=== PATIENT | female | born 1940 | race African-American/Black ===

== ENCOUNTER 2016-09-14 08:33 | Inpatient (IN) | payer OTHER ==
[~2016-09-14] VITALS: Ht 177.8 cm; Wt 73.5 kg
[~2016-09-14 08:33] MED LIST: CLONAZEPAM0.5 M2 PO; GABAPENTIN300 M2 PO; LOVENOX; OXCARBAZEPINE300 M1 PO; OXYCODONE-ACET1 EACH PO
--- NOTE | 2016-09-14 12:41 | Cons- Cardiology ---
General Information and HPI Consulting Request Date of Consult: 09/14/16 Requested By: ISMAEL DOW MD Reason for Consult: Bradycardia History of Present Illness: The patient is a 76-year-old female with history of trigeminal neuralgia, brain meningioma, and recently diagnosed right upper lobe lung mass. She presented for bronchoscopy and lymph node biopsy. While being prepared for surgery, she was noted to be in a junctional rate of cardiac. Review of records from [facility] shows that she has been diagnosed multiple times in the past with junctional bradycardia and sinus bradycardia. This was found in the past to be asymptomatic, and pacemaker was not indicated. She denies any symptoms attributable to bradycardia. The surgery was postponed because of the junctional bradycardia and she was admitted for further evaluation. She does not follow up with her top dyeing machine tender, and she denies any other significant cardiac history. No chest pain. No syncope. No shortness of breath. No palpitations. No diaphoresis. No nausea or vomiting. Allergies/Medications Allergies: Coded Allergies: acetaminophen (From DARVOCET-N) (Intermediate, DIZZINESS, NAUSEA 09/14/16) propoxyphene (From DARVOCET-N) (Intermediate, DIZZINESS, NAUSEA 09/14/16) Home Med List: Clonazepam 0.5 MG TABLET 1 TAB PO TIDPRN ANXIETY (Reported) Gabapentin 300 MG CAPSULE 1 CAP PO TID NERVE PAIN (Reported) Oxcarbazepine 300 MG TABLET 2 TAB PO BID NERVE PAIN (Reported) Oxycodone HCl/Acetaminophen (Oxycodone-Acetaminophen 5-325) 5 MG-325 MG TABLET 1 TAB PO 4XDP PAIN (Reported) Current Medications: Current Medications Sig/Frances Start time Last Medication Dose Route Stop Time Status Admin Acetaminophen 650 MG Q6P PRN 09/14 1300 DC PO Acetaminophen 1,000 MG .STK-MED ONE 09/14 930 DC IV 09/15 931 Clonazepam 0.5 MG TID 09/14 1600 AC 09/14 PO 09/21 1559 1637 Enoxaparin Sodium 40 MG DAILY 09/15 1000 AC SC Fentanyl Citrate 200 MCG .STK-MED ONE 09/14 930 DC IM 09/15 931 Gabapentin 300 MG TID 09/14 1600 AC 09/14 PO 1453 Midazolam HCl 2 MG .STK-MED ONE 09/14 930 DC IM 05/01 0932 Oxcarbazepine 600 MG BID 09/14 1255 AC 09/14 PO 1451 Oxycodone HCl 10 MG Q6P PRN 09/14 1300 DC PO Oxycodone/ 1 TAB Q6P PRN 09/14 1300 DC Acetaminophen PO Review of Systems Review of Systems: No rash. No tremor. No fever. No chills. All other systems were reviewed, and were noted to be negative. Past History Surgical History Surgical History: none Family History Family History Reviewed? Family history was reviewed with the patient, and there are no components family history relevant to the current admission. Exam & Diagnostic Data Vital Signs and I&O Vital Signs Date Time Temp Pulse Resp B/P B/P Pulse O2 O2 Flow FiO2 Mean Ox Delivery Rate 09/14 1657 97.2 50 20 112/78 95 Room Air Intake & Output 09/14 1600 09/14 0809/14 0000 09/13 1600 09/13 0800 09/13 0000 Intake Total Output Total Balance Patient 162 lb Weight Weight Chair scale Measurement Method Physical Exam: Gen: The patient is in no acute distress HEENT: Normal nose, ears, and oropharynx. Pupils equal bilaterally. Conjunctiva normal. Neck: Supple with no JVD, no masses, and no thyromegaly Lungs: Clear to auscultation with normal respiratory effort Heart: RRR, S1, S2, no murmurs. No peripheral edema, 2+ pulses in the lower extremities bilaterally Abdomen: Soft, nontender, no masses. No hepatomegaly. No splenomegaly Extremities: No clubbing or cyanosis. Normal muscle strength in the upper and lower extremities Skin: Normal skin turgor with no skin ulcers or lesions noted. Neuro: Cranial nerves intact. Sensation intact Psych: Alert and oriented 3 with appropriate affect Labs/Km Results: Laboratory Tests 09/14 09/14 1500 1500 Chemistry Hemoglobin A1c (4.2 - 5.8 %) Pending Troponin I (< 0.11 ng/ml) < 0.01 TSH (0.270 - 4.200 uIU/mL) 10.400 H Free T4 (0.78 - 2.44 ng/dL) 0.53 L Coagulation PT (9.4 - 12.5 SEC) 12.3 INR (0.90 - 1.19) 1.17 APTT (25 - 37 SEC) 41 H Hematology CBC w Diff NO MAN DIFF REQ WBC (4.8 - 10.8 /CUMM) 3.4 L RBC (4.20 - 5.40 /CUMM) 3.99 L Hgb (12.0 - 16.0 G/DL) 11.7 L Hct (37 - 47 %) 34.8 L MCV (81.0 - 99.0 FL) 87.1 MCH (27.0 - 31.0 PG) 29.2 RDW (11.5 - 14.5 %) 14.3 Plt Count (130 - 400 /CUMM) 314 MPV (7.4 - 10.4 FL) 9.1 Gran % (42.2 - 75.2 %) 52.4 Lymphocytes % (20.5 - 51.1 %) 31.0 Monocytes % (1.7 - 9.3 %) 13.0 H Eosinophils % (0 - 5 %) 2.9 Basophils % (0.0 - 2.0 %) 0.7 Absolute Granulocytes (1.4 - 6.5 /CUMM) 1.8 Absolute Lymphocytes (1.2 - 3.4 /CUMM) 1.1 L Absolute Monocytes (0.10 - 0.60 /CUMM) 0.4 Absolute Eosinophils (0.0 - 0.7 /CUMM) 0.1 Absolute Basophils (0.0 - 0.2 /CUMM) 0 PUBS MCHC (33.0 - 37.0 G/DL) 33.5 Diagnostic Data EKG Results EKG tracing is independently reviewed, and reveals junctional escape rhythm at a rate of [address] scan of the chest: Assessment/Plan Assessment/Plan Assessment: 1. Junctional bradycardia, with heart rate in the 40s. No definite symptoms 2. Lung mass, plan for biopsy Plan: * Monitor on telemetry * Echocardiogram * Given the significant junctional bradycardia, the patient may require permanent pacemaker placement prior to her thoracic surgery. * Nothing by mouth after midnight for possible pacemaker placement Consult Acknowledgment - Thank you for your consult request.
--- NOTE | 2016-09-14 12:57 | History & Physical ---
ALLIE NESBITT 09/14/16 1256: General Information and HPI MD Statement: I have seen and personally examined SIMI MACIAS and documented this H&P. The patient is a 76 year old F who presented with a patient stated chief complaint of nonspecific EKG changes during preop for bronchoscopy []. Source of Information: patient, family Exam Limitations: no limitations History of Present Illness: Patient is 76-year-old -[place] female with past medical history significant for trigeminal neuralgia, brain meningioma status post gamma knife at [facility] and newly diagnosed right upper lobe lung mass in June 2016, biopsy is significant for adenocarcinoma seen by cardiothoracic surgeon Dr. Harrison came today for bronchoscopy/lymph node biopsy and on the operating table workup was found to have nonspecific EKG changes and needs formal preop clearance from pressurised container filler. Patient denied any chest pain, shortness of breath , hemoptysis, edema, and is a history of cardiac issues in the past. She admits for having cough which is mildly productive but no hemoptysis. She denied any fever, chills but admits for having weakness and lethargy. She admits for having 40 pounds weight loss in the last 6 months. Patient lives at home with her daughter who is 24 hours caregiver and power of appliance installer. She is usually under sedative effects of her high dose of medications for trigeminal neuralgia and uses walker for ambulation at home. Allergies/Medications Allergies: Coded Allergies: acetaminophen (From DARVOCET-N) (Intermediate, DIZZINESS, NAUSEA 09/14/16) propoxyphene (From DARVOCET-N) (Intermediate, DIZZINESS, NAUSEA 09/14/16) Home Med list Clonazepam 0.5 MG TABLET 1 TAB PO TIDPRN ANXIETY (Reported) Gabapentin 300 MG CAPSULE 1 CAP PO TID NERVE PAIN (Reported) Oxcarbazepine 300 MG TABLET 2 TAB PO BID NERVE PAIN (Reported) Oxycodone HCl/Acetaminophen (Oxycodone-Acetaminophen 5-325) 5 MG-325 MG TABLET 1 TAB PO 4XDP PAIN (Reported) Past History Medical History Neurological: trigeminal neuralgia EENT: NONE Cardiovascular: NONE Respiratory: adenocarcinoma of lung Gastrointestinal: NONE Hepatic: NONE Renal: NONE Musculoskeletal: NONE Psychiatric: NONE Surgical History Surgical History: appendectomy Past Family/Social History Family History Relations & Conditions if any BROTHER (LUNG CANCER). Psychosocial History Where do you live? Home Who Do You Live With? child Services at Home: None Primary Language: Italian Smoking Status: Former Smoker ETOH Use: denies use Functional Ability ADLs Needs Assist: dressing, eating, toileting, bathing. Ambulation: walker IADLs Needs Assist: shopping, housework, finances, food prep, telephone, transportation, medication admin. Review of Systems Review of Systems Constitutional: Denies: chills, diaphoresis. EENTM: Denies: blurred vision, double vision. Cardiovascular: Denies: chest pain, edema. Respiratory: Reports: cough. Denies: hemoptysis. GI: Denies: bloating, constipation. Genitourinary: Denies: dysuria, frequency. Musculoskeletal: Reports: see HPI. Skin: Reports: see HPI. Neurological/Psychological: Denies: anxiety, ataxia. Hematologic/Endocrine: Reports: see HPI. Exam & Diagnostic Data Last 24 Hrs of Vital Signs/I&O Vital Signs Date Time Temp Pulse Resp B/P B/P Pulse O2 O2 Flow FiO2 Mean Ox Delivery Rate 09/15 0800 97.8 60 24 100/50 95 Room Air 05/ 0000 95 Room Air / 0000 96.5 45 18 102/60 95 Room Air / 1657 97.2 50 20 112/78 95 Room Air Intake & Output 09/15 1600 09/15 0800 09/15 0000 Intake Total Output Total Balance Number 0 Bowel Movements Physical Exam General Appearance Alert, Oriented X3, Cooperative, No Acute Distress Skin No Breakdown Neck Supple Cardiovascular Regular Rate, Normal S1, Normal S2 Lungs Normal Air Movement, basal crackles Abdomen Normal Bowel Sounds, Soft Neurological Normal Speech, Strength at 5/5 X4 Ext, Normal Tone Extremities No Clubbing, No Cyanosis, No Edema Diagnostic Data EKG Results Sinus bradycardia with no ST-T wave changes Assessment/Plan Assessment: Patient is 76-year-old -[place] female with past medical history significant for trigeminal neuralgia, brain meningioma status post gamma knife at [facility] and newly diagnosed right upper lobe lung mass in June 2016, biopsy is significant for adenocarcinoma seen by cardiothoracic surgeon Dr. Harrison came today for bronchoscopy/lymph node biopsy and on the operating table workup was found to have nonspecific EKG changes and needs formal preop clearance from pressurised container filler. Admit patient on telemetry floor and was taken for following problems Problem #1 nonspecific T-wave changes on preop evaluation/junctional bradycardia and patient might need permanent pacemaker placement * Patient is currently free of any symptoms. We will do initial labs including CBC, BMP, lipid profile, thyroid functions, hemoglobin A1c, troponins and EKG. If initial set of troponin is elevated we will trend it. * Patient will be seen by Dr. Finley and will follow his recommendations and patient might need pacemaker placement prior to her surgery Problem #2 right upper lobe lung mass with significant for adenocarcinoma of lung * Patient is seen by Dr. Harrison. Problem #3 history of severe trigeminal neuralgia * Patient is on 300 mg 3 times a day gabapentin, 0.5 mg 3 times a day clonazepam and also ox carbamazepine. We will continue her home medications. Heart healthy diet Lovenox for DVT prophylaxis Patient is DNI DNR As Ranked By This Provider Problem List: 1. EKG abnormality 2. Lung cancer Core Measures/Miscellaneous Acute Coronary Syndrome ACS Diagnosis: No Cerebrovascular Accident CVA/TIA Diagnosis: No Congestive Heart Failure CHF Diagnosis: No Venous Thromboembolism VTE Risk Factors: Age > 40 [facility] prophylaxis d/t: No contraindications No VTE Pharm Prophylaxis d/t: No contraindications VTE Diagnosis: No VTE Type: NONE VTE Confirmed by (Test): NONE Severe Sepsis Severe Sepsis Present: No Septic Shock Septic Shock Present: No Miscellaneous Documentation Attending Case Discussed With: ISMAEL DOW MD Primary Care Physician: RAYRAY CHAWLA MD Patient sees these Specialists ONCOLOGIST Level of Patient Care: Telemetry Resident Review Statement Resident Statement: examined this patient ISMAEL DOW MD 09/14/16 1606: Attending MD Review Statement Attending Statement Attending MD Statement: examined this patient, discuss w/resident/PA/TRADE RECRUITER, agreed w/resident/PA/TRADE RECRUITER, reviewed EMR data (avail), discussed with nursing, amended to note Attending Assessment/Plan: 76 y/o F with pmh sig for trigeminal neuralgia, brain meningioma status post gamma knife at [facility] and newly diagnosed right upper lobe lung mass in June 2016, biopsy is significant for adenocarcinoma seen by cardiothoracic surgeon Dr. Harrison came today for bronchoscopy/lymph node biopsy. Found to have abnormal EKG with bradycardia and possible junctional rhythm. Medicine was called for admission to telemetry secondary to abnormal EKG. Patient denies any chest pain, shortness of breath, dizziness. She has been started on gabapentin as well as oxcarbazepine for history of trigeminal neuralgia. Patient claims that since she has been started on the medications she is sometimes feel fatigued, cardiac is wobbly and she is concerned that her lower heart rate 90 related to these medications as they seem to be a new problem. She claimed that she was started on these medications will likely about 6 months ago. Vss currently stable, with HR in 60s. On exam; aox3, nad. cv; s1,s2, rrr, bradycardia. resp; clear abd; soft, nt, bs+ ext; no edema. Labs; pending A/P; 76 y/o F with pmh sig for trigeminal neuralgia, brain meningioma status post gamma knife at [facility] and newly diagnosed right upper lobe lung mass which was adenocarcinoma initially came into same day surgery for bronchoscopy for lymph node biopsy but then now admitted to telemetry secondary to having abnormal EKG. Patient's basic blood work will be checked for any electrolyte abnormalities. Echocardiogram will be checked. Patient had been seen by Dr. Abel, Will follow recommendations. Check thyroid function tests. Troponin will be checked. It is a possibility that her bradycardia is related to her oxcarbazepine. This needs to be discussed with her pressurised container filler as well as primary care doctor to see if we do make any changes in her medications. Will monitor on telemetry. DVT prophylaxis: Lovenox, hold in the morning in case if she needs a pacemaker. Keep patient nothing by mouth after midnight tonight. Code: DNR/I
--- NOTE | 2016-09-14 15:59 | NUR ---
PT ADMITTED FROM SAME DAY SURGERY. SHE IS AWAKE AND COOPERATIVE, HER DAUGHTER WAS PRESENT. SHE DENIES PAIN OR DIZZINESS, MONITOR SHOWING SB 40-58. SHE WAS AMBULATED TO WITH ASSIST OF ONE AND VOIDED. HER CMR WAS CLARIFIED . SHE REPORTS THAT ALTHOUGH HER TRIGEMINAL NEUROLIGA MEDS MAKE HER SLEEPY AND DIFFICULT TO WALK, SHE HAS SEVERE PAIN WHICH NOW INCLUDES HAND PAIN IF SHE DOES NOT TAKE THE MEDS.
--- NOTE | 2016-09-14 16:43 | Cons- Thoracic Surgery ---
General Information and HPI Consulting Request Date of Consult: 09/14/16 Requested By: ISMAEL DOW MD Reason for Consult: Evaluation of her bradycardia and right upper lobe lung cancer Source of Information: patient, family, old records, PCP Exam Limitations: no limitations History of Present Illness: I admitted Mrs. Gregg to the operating room today to undergo a bronchoscopy and mediastinoscopy for continued workup of her known right upper lobe lung cancer. Anesthesia evaluation noted her EKG to show her to be in a junctional rhythm. 2 months ago she was admitted to [facility] and had the same findings on her electric cardiogram. There evaluation at that time felt that because she was asymptomatic no further workup or evaluation was necessary. The patient was scheduled for general anesthesia today and because of that cardiology consultation has been obtained in the preoperative holding area. The decision is to admit the patient for observation and possible pacemaker placement given that we are headed down the pathway of a possible right upper lobectomy. Allergies/Medications Allergies: Coded Allergies: acetaminophen (From DARVOCET-N) (Intermediate, DIZZINESS, NAUSEA 09/14/16) propoxyphene (From DARVOCET-N) (Intermediate, DIZZINESS, NAUSEA 09/14/16) Home Med List: Clonazepam 0.5 MG TABLET 1 TAB PO TIDPRN ANXIETY (Reported) Gabapentin 300 MG CAPSULE 1 CAP PO TID NERVE PAIN (Reported) Oxcarbazepine 300 MG TABLET 2 TAB PO BID NERVE PAIN (Reported) Oxycodone HCl/Acetaminophen (Oxycodone-Acetaminophen 5-325) 5 MG-325 MG TABLET 1 TAB PO 4XDP PAIN (Reported) Current Medications: Current Medications Sig/Frances Start time Last Medication Dose Route Stop Time Status Admin Acetaminophen 650 MG Q6P PRN 09/14 1300 DC PO Clonazepam 0.5 MG TID 09/14 1600 AC 09/14 PO 08 1559 1637 Enoxaparin Sodium 40 MG DAILY 09/15 1000 AC SC Gabapentin 300 MG TID 09/14 1600 AC 09/14 PO 1453 Oxcarbazepine 600 MG BID 09/14 1255 AC 09/14 PO 1451 Oxycodone HCl 10 MG Q6P PRN 09/14 1300 DC PO Oxycodone/ 1 TAB Q6P PRN 09/14 1300 DC Acetaminophen PO Past History Medical History Blood Transfusion Hx: No Neurological: trigeminal neuralgia EENT: NONE Cardiovascular: NONE Respiratory: adenocarcinoma of lung Gastrointestinal: NONE Hepatic: NONE Renal: NONE Musculoskeletal: NONE Psychiatric: NONE Endocrine: NONE Blood Disorders: NONE Cancer(s): CEREBRAL MASS 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 Psychosocial History Where Do You Live? Home Who Do You Live With? child Services at Home: None Primary Language: Kyrgyz Smoking Status: Former Smoker ETOH Use: denies use Functional Ability ADLs Needs Assist: dressing, eating, toileting, bathing. Ambulation: walker IADLs Needs Assist: shopping, housework, finances, food prep, telephone, transportation, medication admin. Review of Systems Review of Systems: She is essentially unremarkable from a cardiac standpoint. She has had no chest pain no syncope or presyncope. She does have neurologic symptoms which may be related to her known meningioma. She's had no cough and no weight and no weight loss. The rest of her 12 point review of systems is unremarkable. Exam & Diagnostic Data Vital Signs and I&O Intake & Output 09/14 1600 09/14 0800 09/14 0000 09/13 1600 09/13 0800 09/13 0000 Intake Total Output Total Balance Patient 162 lb Weight Weight Chair scale Measurement Method Physical Exam: Physical examination she is comfortable and appears well. Her skin is warm and well perfused no suspicious lesions noted. The sclerae are anicteric and mucous membranes are moist. There is no cervical or subclavicular lymphadenopathy. Her abdomen is soft and nontender with no masses. Her breath sounds are clear bilaterally. The cardiac exam shows a regular rhythm and rate with no murmurs or sounds. The periphery shows no cyanosis clubbing or edema. Her neurologic exam is grossly normal motor and sensory function. Assessment/Plan Assessment/Plan Clearly based upon the anesthesia evaluation we cannot proceed with a general anesthesia and the elective bronchoscopy me and mediastinoscopy. She is being admitted to a telemetry floor and I will leave it up to cardiology as to an indication if the patient has 1 for a dual-chamber pacemaker. We can do that as part of this hospitalization. I would not do both procedures but I would prefer that the pacemaker be placed and then the patient return at some later date for her bronchoscopy and mediastinoscopy. She has a known right upper lobe adenocarcinoma we are staging her with plans for eventual surgical resection. Cardiology evaluation with a final recommendation is pending and we will act accordingly. Copies To: CAMMY CRUZ,RAYRAY; MIKAEL CRUZ,KAIDEN Consult Acknowledgment - Thank you for your consult request.
--- NOTE | 2016-09-14 16:46 | NUR ---
PT MONITOR JUNCTIONAL RHYTYM 40-50. SHE IS SLEEPING, WAKES EASILY. TRANSCUTANEOUS PACER PLACED ON PT.
[2016-09-14 16:57] VITALS: BP 112/78
[2016-09-14 17:42] LABS: ABSOLUTE BASOPHIL COUNT 0 /CUMM (0.0-0.2); ABSOLUTE EOSINOPHIL COUNT 0.1 /CUMM (0.0-0.7); ABSOLUTE GRANULOCYTE CT 1.8 /CUMM (1.4-6.5); ABSOLUTE LYMPH COUNT 1.1 /CUMM (1.2-3.4); ABSOLUTE MONOCYTE COUNT 0.4 /CUMM (0.10-0.60); BASOPHIL % 0.7 % (0.0-2.0); EOSINOPHIL % 2.9 % (0-5); GRANULOCYTE % 52.4 % (42.2-75.2); HEMATOCRIT 34.8 % (37-47); MEAN CORPUSCULAR HGB 29.2 PG (27.0-31.0); MEAN CORPUSCULAR HGB CONC 33.5 G/DL (33.0-37.0); MEAN CORPUSCULAR VOLUME 87.1 FL (81.0-99.0); MEAN PLATELET VOLUME 9.1 FL (7.4-10.4); PLATELET COUNT 314 /CUMM (130-400); RBC DISTRIBUTION WIDTH 14.3 % (11.5-14.5); RED BLOOD CELL CT 3.99 /CUMM (4.20-5.40); WHITE BLOOD CELL COUNT 3.4 /CUMM (4.8-10.8)
[2016-09-14 17:50] LABS: PT 12.3 SEC (9.4-12.5); PTT 41 SEC (25-37)
[2016-09-15] VITALS: BP 102/60
[2016-09-15 04:18] LABS: ABSOLUTE BASOPHIL COUNT 0 /CUMM (0.0-0.2); ABSOLUTE EOSINOPHIL COUNT 0.2 /CUMM (0.0-0.7); ABSOLUTE GRANULOCYTE CT 2.3 /CUMM (1.4-6.5); ABSOLUTE LYMPH COUNT 1.1 /CUMM (1.2-3.4); ABSOLUTE MONOCYTE COUNT 0.6 /CUMM (0.10-0.60); BASOPHIL % 0.5 % (0.0-2.0); EOSINOPHIL % 4.7 % (0-5); GRANULOCYTE % 55.6 % (42.2-75.2); HEMATOCRIT 31.5 % (37-47); MEAN CORPUSCULAR HGB 29.4 PG (27.0-31.0); MEAN CORPUSCULAR VOLUME 86.3 FL (81.0-99.0); MEAN PLATELET VOLUME 8.4 FL (7.4-10.4); PLATELET COUNT 304 /CUMM (130-400); RBC DISTRIBUTION WIDTH 14.8 % (11.5-14.5); RED BLOOD CELL CT 3.65 /CUMM (4.20-5.40); WHITE BLOOD CELL COUNT 4.2 /CUMM (4.8-10.8)
--- NOTE | 2016-09-15 04:24 | NUR ---
SB 39 WAS THE LOWEST I HAVE SEEN. SATURATION 95% ON RA, LUNGS SOUND CLEAR. NPO AFTER MN MAINTAINED.
--- NOTE | 2016-09-15 07:14 | PN- Housestaff ---
Subjective Follow-up For: 1. bradycardia and EKG changes 2. RUL lung mass (adenocarcinoma), here for bronchospoy/LN biopsy 3. Hx of severe trigeminal neuralgia Tele-Events Since Last Visit: Sinus sanjana to 49 at 2 pm yesterday, no other events Subjective: I saw and examined the patient this am, she is alert and oriented in no distress , denies chest pain, palpitation, SOB. Denies abdominal pain. NPO pending decision for a pacemaker. Patient reported neausea and feeling dizzy at 11 am. no chest pain or palpitation. no changes on the monitor, IN in 70s, systolic BP in 120s, BS 128. Please see note for assessment and plan. Review of Systems Constitutional: Denies: chills, fever, weakness. EENTM: Reports: no symptoms. Cardiovascular: Denies: chest pain, palpitations, peripheral edema, syncope. Respiratory: Denies: cough, short of breath, sputum production. Gastrointestinal: Reports: nausea. Denies: abdominal pain, vomiting. Genitourinary: Reports: no symptoms. Musculoskeletal: Reports: no symptoms. Skin: Reports: no symptoms. Neurological/Psychological: Reports: no symptoms. Hematologic/Endocrine: Reports: no symptoms. Objective Last 24 Hrs of Vital Signs/I&O Vital Signs Date Time Temp Pulse Resp B/P B/P Pulse O2 O2 Flow FiO2 Mean Ox Delivery Rate 09/15 0800 97.8 60 24 100/50 95 Room Air 05/ 0000 95 Room Air / 0000 96.5 45 18 102/60 95 Room Air 09/14 1657 97.2 50 20 112/78 95 Room Air Intake & Output 09/15 1600 09/15 0800 09/15 0000 Intake Total Output Total Balance Number 0 Bowel Movements Physical Exam General Appearance: Alert, Oriented X3, Cooperative, No Acute Distress Skin: No Rashes, No Breakdown, No Significant Lesion Skin Temp/Moisture Exam: Warm/Dry Sepsis Skin Exam (color): Normal for Ethnicity HEENT: Atraumatic, EOMI Neck: Supple, No JVD Cardiovascular: Regular Rate, Normal S1, Normal S2, No Murmurs Lungs: Clear to Auscultation, Normal Air Movement Abdomen: Soft, No Tenderness Neurological: Normal Speech, Normal Tone Extremities: No Edema, Normal Pulses Vascular: Pulses Symmetrical Current Medications: Current Medications Sig/Frances Start time Last Medication Dose Route Stop Time Status Admin Acetaminophen 650 MG Q6P PRN 09/14 1300 DC PO Clonazepam 0.5 MG TID 09/14 1600 AC 09/15 PO 09/21 1559 0948 Dextrose/Sodium 1,000 ML Q13H 09/15 1015 AC 09/15 Chloride IV 1034 Dextrose/Sodium 1,000 ML Q20H 09/15 0915 DC 09/15 Chloride IV 0948 Enoxaparin Sodium 40 MG DAILY 09/15 1000 AC 09/15 SC 0948 Gabapentin 300 MG TID 09/14 1600 AC 09/15 PO 0948 Magnesium Sulfate 1 GM ONCE ONE 09/15 1115 AC 09/15 Dextrose/Water 100 ML IV 09/15 1514 1121 Oxcarbazepine 600 MG BID 09/14 1255 AC 09/15 PO 0948 Oxycodone HCl 10 MG Q6P PRN 09/14 1300 DC PO Oxycodone/ 1 TAB Q6P PRN 09/14 1300 DC Acetaminophen PO Trimethobenzamide HCl 200 MG TID PRN 09/15 1115 AC IM Last 24 Hrs of Lab/Km Results Last 24 Hrs of Labs/Mics: Laboratory Tests 09/15/16 0655: Urine Osmolality 431, Ur Random Creatinine 137.0, Ur Random Sodium 74, Ur Random Potassium 43.2, Fraction Sodium Excret 0.3 09/15/16 0353: Anion Gap 7, Estimated GFR > 60, BUN/Creatinine Ratio 8.8, Serum Osmolality 261 L, Troponin I Pending, CBC w Diff NO MAN DIFF REQ, RBC 3.65 L, MCV 86.3, MCH 29.4, RDW 14.8 H, MPV 8.4, Gran % 55.6, Lymphocytes % 25.3, Monocytes % 13.9 H , Eosinophils % 4.7, Basophils % 0.5, Absolute Granulocytes 2.3, Absolute Lymphocytes 1.1 L, Absolute Monocytes 0.6, Absolute Eosinophils 0.2, Absolute Basophils 0, PUBS MCHC 34.0 09/15/16 0020: Anion Gap 9, Estimated GFR > 60, Glucose 96, Calcium 8.7, Phosphorus 4.0, Magnesium 1.7, Total Bilirubin 0.5, AST 22, ALT 25, Albumin 2.9 L 09/14/16 1500: Hemoglobin A1c 6.0 H, Troponin I < 0.01 09/14/16 1500: TSH 10.400 H, Free T4 0.53 L, PT 12.3, INR 1.17, APTT 41 H, CBC w Diff NO MAN DIFF REQ, RBC 3.99 L, MCV 87.1, MCH 29.2, RDW 14.3, MPV 9.1, Gran % 52.4, Lymphocytes % 31.0, Monocytes % 13.0 H, Eosinophils % 2.9, Basophils % 0.7, Absolute Granulocytes 1.8, Absolute Lymphocytes 1.1 L, Absolute Monocytes 0.4, Absolute Eosinophils 0.1, Absolute Basophils 0, PUBS MCHC 33.5 09/14/16 1251: Sodium Cancelled, Potassium Cancelled, Chloride Cancelled, Carbon Dioxide Cancelled, Anion Gap Cancelled, BUN Cancelled, Creatinine Cancelled, BUN/ Creatinine Ratio Cancelled, Total Bilirubin Cancelled, Direct Bilirubin Cancelled, AST Cancelled, ALT Cancelled, Alkaline Phosphatase Cancelled, Total Protein Cancelled, Albumin Cancelled, Triglycerides Cancelled, Cholesterol Cancelled, LDL Cholesterol, Calc Cancelled, HDL Cholesterol Cancelled, Cholesterol/HDL Ratio Cancelled Microbiology 09/14 1442 UPPER RESP: Surveillance Culture - RECD 09/14 144 GI: Surveillance Culture - RECD Assessment/Plan Assessment: Patient is a 76-year-old -[place] female with PMH of TGN, meningioma s/p post gamma knife ablation at [facility], 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 Harrison who came for bronchoscopy/lymph node biopsy and was found to have nonspecific EKG changes and is admitted to telemetry for cardiac monitoring (physically in the ICU as tele hold). Problem list and plan: Bradycardia and EKG changes Asymptomatic. Today T-wave inversions in V3 and V4 were detected on the EKG as well as QTc prolongation compared to original EKG. 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 Harrison History of severe trigeminal neuralgia * Gabapentin 300 mg TID * clonazepam 0.5 mg TID * Ox-carbamazepine 600 mg BID Heart healthy diet Lovenox for DVT prophylaxis DNI DNR Problem List: 1. Lung cancer 2. EKG abnormality 3. Hyponatremia Pain Ratin Pain Location: no pain Pain Goal: Pain 4 or less Pain Plan: mild pain pathway Tomorrow's Labs & Rationales: CBC (anemia), BEP(monitor electrolytes), coags (pacemaker in am)
[2016-09-15 08:00] VITALS: BP 100/50
--- NOTE | 2016-09-15 10:49 | NUR ---
@0800-PT ALERT AND ORIENTED, CALM AND COOP. JIMENEZ. CONT TELE HOLD. NSR HR 60S. PACER PADS IN PLACE DUE TO BRADYCARDIA ON ADMISSION. BP STABLE. NO CARDIAC DISTRESS NOTED. ECHO ORD. PT REMAINS NPO FOR POSSIBLE PACER PLACEMENT. SKIN INTACT, ALPS IN PLACE. CONT TO MONITOR CLOSELY.. CALL [facility]ON PRATHER.
--- NOTE | 2016-09-15 10:52 | NUR ---
@1000-PT STARTED ON IVF DUE TO NPO STATUS. AWAITING CARDIOLOGY INPUT. IVF D5NS INFUSING AT THIS TIME AT 75ML/HR.
--- NOTE | 2016-09-15 11:11 | PN- Att Addend ---
Attending Addendum Attending Brief Note Patient seen and examined, denies any complaints except that she is feeling tired. She feels thirsty. Her heart rate did go down to 40s overnight. This morning it has been running mostly in 60. Patient has been kept nothing by mouth after midnight last night. This morning her sodium has dropped. Vital Signs Date Time Temp Pulse Resp B/P B/P Pulse O2 O2 Flow FiO2 Mean Ox Delivery Rate 09/15 0800 97.8 60 24 100/50 95 Room Air 09/15 0000 95 Room Air 09/15 0000 96.5 45 18 102/60 95 Room Air 09/14 1657 97.2 50 20 112/78 95 Room Air ON EXAM; aox3, nad. cv; s1,s2, rrr, bradycardia. resp; clear abd; soft, nt, bs+ ext; no edema. Laboratory Tests 09/15 09/15 09/15 09/14 0655 0353 0020 1500 Chemistry Sodium (137 - 145 mmol/L) 125 L 125 L Potassium (3.5 - 5.1 mmol/L) 4.3 4.2 Chloride (98 - 107 mmol/L) 93 L 92 L Carbon Dioxide (22 - 30 mmol/L) 25 24 Anion Gap (5 - 16) 7 9 BUN (7 - 17 mg/dL) 7 7 Creatinine (0.5 - 1.0 mg/dL) 0.8 0.7 Estimated GFR (>60 ml/min) > 60 > 60 BUN/Creatinine Ratio (7 - 25 %) 8.8 Glucose (65 - 99 mg/dL) 96 Hemoglobin A1c (4.2 - 5.8 %) 6.0 H Serum Osmolality (285 - 295 MOSM/KG) 261 L Calcium (8.4 - 10.2 mg/dL) 8.7 Phosphorus (2.5 - 4.5 mg/dL) 4.0 Magnesium (1.6 - 2.3 mg/dL) 1.7 Total Bilirubin (0.2 - 1.3 mg/dL) 0.5 AST (14 - 36 U/L) 22 ALT (9 - 52 U/L) 25 Troponin I (< 0.11 ng/ml) < 0.01 Albumin (3.5 - 5.0 g/dL) 2.9 L Hematology CBC w Diff NO MAN DIFF REQ WBC (4.8 - 10.8 /CUMM) 4.2 L RBC (4.20 - 5.40 /CUMM) 3.65 L Hgb (12.0 - 16.0 G/DL) 10.7 L Hct (37 - 47 %) 31.5 L MCV (81.0 - 99.0 FL) 86.3 MCH (27.0 - 31.0 PG) 29.4 RDW (11.5 - 14.5 %) 14.8 H Plt Count (130 - 400 /CUMM) 304 MPV (7.4 - 10.4 FL) 8.4 Gran % (42.2 - 75.2 %) 55.6 Lymphocytes % (20.5 - 51.1 %) 25.3 Monocytes % (1.7 - 9.3 %) 13.9 H Eosinophils % (0 - 5 %) 4.7 Basophils % (0.0 - 2.0 %) 0.5 Absolute Granulocytes (1.4 - 6.5 /CUMM) 2.3 Absolute Lymphocytes (1.2 - 3.4 /CUMM) 1.1 L Absolute Monocytes (0.10 - 0.60 /CUMM) 0.6 Absolute Eosinophils (0.0 - 0.7 /CUMM) 0.2 Absolute Basophils (0.0 - 0.2 /CUMM) 0 PUBS MCHC (33.0 - 37.0 G/DL) 34.0 Urines Urine Osmolality (300 - 1000 MOSM/KG) 431 Ur Random Creatinine (mg/dL) 137.0 Ur Random Sodium (30 - 90 mmol/L) 74 Ur Random Potassium (mmol/L) 43.2 Fraction Sodium Excret (<1% %) 0.3 09/14 09/14 1500 1251 Chemistry Sodium Cancelled Potassium Cancelled Chloride Cancelled Carbon Dioxide Cancelled Anion Gap Cancelled BUN Cancelled Creatinine Cancelled BUN/Creatinine Ratio Cancelled Total Bilirubin Cancelled Direct Bilirubin Cancelled AST Cancelled ALT Cancelled Alkaline Phosphatase Cancelled Total Protein Cancelled Albumin Cancelled Triglycerides Cancelled Cholesterol Cancelled LDL Cholesterol, Calc Cancelled HDL Cholesterol Cancelled Cholesterol/HDL Ratio Cancelled TSH (0.270 - 4.200 uIU/mL) 10.400 H Free T4 (0.78 - 2.44 ng/dL) 0.53 L Coagulation PT (9.4 - 12.5 SEC) 12.3 INR (0.90 - 1.19) 1.17 APTT (25 - 37 SEC) 41 H Hematology CBC w Diff NO MAN DIFF REQ WBC (4.8 - 10.8 /CUMM) 3.4 L RBC (4.20 - 5.40 /CUMM) 3.99 L Hgb (12.0 - 16.0 G/DL) 11.7 L Hct (37 - 47 %) 34.8 L MCV (81.0 - 99.0 FL) 87.1 MCH (27.0 - 31.0 PG) 29.2 RDW (11.5 - 14.5 %) 14.3 Plt Count (130 - 400 /CUMM) 314 MPV (7.4 - 10.4 FL) 9.1 Gran % (42.2 - 75.2 %) 52.4 Lymphocytes % (20.5 - 51.1 %) 31.0 Monocytes % (1.7 - 9.3 %) 13.0 H Eosinophils % (0 - 5 %) 2.9 Basophils % (0.0 - 2.0 %) 0.7 Absolute Granulocytes (1.4 - 6.5 /CUMM) 1.8 Absolute Lymphocytes (1.2 - 3.4 /CUMM) 1.1 L Absolute Monocytes (0.10 - 0.60 /CUMM) 0.4 Absolute Eosinophils (0.0 - 0.7 /CUMM) 0.1 Absolute Basophils (0.0 - 0.2 /CUMM) 0 PUBS MCHC (33.0 - 37.0 G/DL) 33.5 A/P: 76 y/o F with pmh sig for trigeminal neuralgia, brain meningioma status post gamma knife at [facility] and newly diagnosed right upper lobe lung mass which was adenocarcinoma initially came into same day surgery for bronchoscopy for lymph node biopsy but then now admitted to telemetry secondary to having abnormal EKG. Patient remains bradycardic overnight and this morning the heart rate is mostly in the 60s. Discussed with cardiology. Mostly disabled get the pacemaker. Dr. Finley to get in touch base with Dr. Harrison. Na is also low, likley 2/2 to Dehydration but SIADH is also one of the differential. Agree with IVFs. Please recheck Na this evening. Trileptal can also lead to bradycardia. Unfortunately disease secondary to having severe symptoms from trigeminal neuralgia, patient needs treatment. Question is whether she should be continued on Trileptal Versus Changing to Something Different. If She Gets the Pacemaker Then Probably Will Keep Her on trileptal and we do not have to worry about bradycardia any more. Will wait to hear from Dr. Finley and Dr. Harrison.
--- NOTE | 2016-09-15 11:16 | NUR ---
@1100-PT C/O NAUSEA, LIGHTHEADED AND NOT FEELING WELL. HOUSESTAFF CALLED TO BEDSIDE. PT ABLE TO ANSWER QUESTIONS APPROPRIATELY BUT DROWSY. JIMENEZ EQUALLY. VS:BP 120/70, P 68, R 20, O2SAT 94% ON RA, TEMP 97.8. ACCUCHECK 128. EKG ORD AND DONE AT BEDSIDE. NAUSEA RESOLVED AT THIS TIME BUT TIGAN PRN TID ORD IF FURTHER NAUSEA. MAG BOLUS 1 GM ORD AT THIS TIME.
--- NOTE | 2016-09-15 13:11 | PN- Cardiology ---
Subjective Subjective: The patient is lethargic. She complains of intermittent nausea and lightheadedness. On telemetry, she is noted to have prolonged periods of junctional rhythm in the low 40s, alternating with sinus rhythm in the 60s. No palpitations. No chest pain. No syncope. No orthopnea. No diaphoresis. Objective Vital Signs and I&Os Vital Signs Date Time Temp Pulse Resp B/P B/P Pulse O2 O2 Flow FiO2 Mean Ox Delivery Rate 09/16 799 97.8 60 24 100/50 95 Room Air 09/15 0000 95 Room Air 09/15 0000 96.5 45 18 102/60 95 Room Air 09/14 1657 97.2 50 20 112/78 95 Room Air Intake & Output 09/15 1600 09/15 0809/15 0000 09/14 1600 09/15 0700 09/14 0000 Intake Total Output Total Balance Number 0 Bowel Movements Patient 162 lb Weight Weight Chair scale Measurement Method Physical Exam: Gen: The patient is in no acute distress HEENT: Normal nose, ears, and oropharynx. Pupils equal bilaterally. Conjunctiva normal. Neck: Supple with no JVD, no masses, and no thyromegaly Lungs: Clear to auscultation with normal respiratory effort Heart: RRR, S1, S2, no murmurs. No peripheral edema, 2+ pulses in the lower extremities bilaterally Abdomen: Soft, nontender, no masses. No hepatomegaly. No splenomegaly Extremities: No clubbing or cyanosis. Normal muscle strength in the upper and lower extremities Skin: Normal skin turgor with no skin ulcers or lesions noted. Neuro: Cranial nerves intact. Sensation intact Current Medications: Current Medications Sig/Frances Start time Last Medication Dose Route Stop Time Status Admin Acetaminophen 650 MG Q6P PRN 09/14 1300 DC PO Clonazepam 0.5 MG TID 09/14 1600 AC 09/15 PO 08 1559 0948 Dextrose/Sodium 1,000 ML Q13H 09/15 1015 AC 09/15 Chloride IV 1034 Dextrose/Sodium 1,000 ML Q20H 09/15 0915 DC 09/15 Chloride IV 0948 Enoxaparin Sodium 40 MG DAILY 09/15 1000 AC 09/15 SC 0948 Gabapentin 300 MG TID 09/14 1600 AC 09/15 PO 0948 Magnesium Sulfate 1 GM ONCE ONE 09/15 1115 AC 09/15 Dextrose/Water 100 ML IV 09/15 1514 1121 Oxcarbazepine 600 MG BID 09/14 1255 AC 09/15 PO 0948 Oxycodone HCl 10 MG Q6P PRN 09/14 1300 DC PO Oxycodone/ 1 TAB Q6P PRN 09/14 1300 DC Acetaminophen PO Trimethobenzamide HCl 200 MG TID PRN 09/15 1115 AC IM Results Last 48 Hrs of Labs/Mics: Laboratory Tests 09/15/16 0655: Urine Osmolality 431, Ur Random Creatinine 137.0, Ur Random Sodium 74, Ur Random Potassium 43.2, Fraction Sodium Excret 0.3 09/15/16 0353: Anion Gap 7, Estimated GFR > 60, BUN/Creatinine Ratio 8.8, Serum Osmolality 261 L, Troponin I < 0.01, CBC w Diff NO MAN DIFF REQ, RBC 3.65 L, MCV 86.3, MCH 29.4, RDW 14.8 H, MPV 8.4, Gran % 55.6, Lymphocytes % 25.3, Monocytes % 13.9 H , Eosinophils % 4.7, Basophils % 0.5, Absolute Granulocytes 2.3, Absolute Lymphocytes 1.1 L, Absolute Monocytes 0.6, Absolute Eosinophils 0.2, Absolute Basophils 0, PUBS MCHC 34.0 09/15/16 0020: Anion Gap 9, Estimated GFR > 60, Glucose 96, Calcium 8.7, Phosphorus 4.0, Magnesium 1.7, Total Bilirubin 0.5, AST 22, ALT 25, Albumin 2.9 L 09/14/16 1500: Hemoglobin A1c 6.0 H, Troponin I < 0.01 09/14/16 1500: TSH 10.400 H, Free T4 0.53 L, PT 12.3, INR 1.17, APTT 41 H, CBC w Diff NO MAN DIFF REQ, RBC 3.99 L, MCV 87.1, MCH 29.2, RDW 14.3, MPV 9.1, Gran % 52.4, Lymphocytes % 31.0, Monocytes % 13.0 H, Eosinophils % 2.9, Basophils % 0.7, Absolute Granulocytes 1.8, Absolute Lymphocytes 1.1 L, Absolute Monocytes 0.4, Absolute Eosinophils 0.1, Absolute Basophils 0, PUBS MCHC 33.5 09/14/16 1251: Sodium Cancelled, Potassium Cancelled, Chloride Cancelled, Carbon Dioxide Cancelled, Anion Gap Cancelled, BUN Cancelled, Creatinine Cancelled, BUN/ Creatinine Ratio Cancelled, Total Bilirubin Cancelled, Direct Bilirubin Cancelled, AST Cancelled, ALT Cancelled, Alkaline Phosphatase Cancelled, Total Protein Cancelled, Albumin Cancelled, Triglycerides Cancelled, Cholesterol Cancelled, LDL Cholesterol, Calc Cancelled, HDL Cholesterol Cancelled, Cholesterol/HDL Ratio Cancelled Assessment/Plan Assessment/Plan Assessment: 1. Junctional bradycardia, with heart rate in the 40s. Likely symptomatic with lethargy and lightheadedness. 2. Lung mass, planned for biopsy Plan: * I recommend permanent pacemaker placement given the junctional rhythm with rates as low as 40 and possible associated symptoms. * Nothing by mouth after midnight * Pacemaker to be placed tomorrow by Dr. Harrison Continue telemetry? Yes
--- NOTE | 2016-09-15 15:19 | ECHOCARDIOGRAM REPORT ---
SIMI MACIAS Age: 76 : 1940 Gender: F Exam Date: 09/14/2016 15:33 Exam Location: [facility] Ht (in): 70 Wt (lb): 160 BSA: 1.89 BP: 112 / 78 Ordering Physician: ALLIE NESBITT MD Referring Physician: Dangelo Finley MD Technologist: Julee Riggs MEG Room Number: 105 Indications: ARRHYTHMIAS Rhythm: Other Technical Quality: Good FINDINGS Left Ventricle Normal size left ventricle. Normal left ventricular wall thickness. Normal left ventricular ejection fraction visually estimated at > 60%. No obvious regional wall motion abnormalities. Right Ventricle Normal right ventricular size and function. Right Atrium Normal right atrial size. Left Atrium Normal left atrial size. Mitral Valve Mitral valve thickened. Mild mitral regurgitation. Aortic Valve Diffuse thickening (sclerosis) of the aortic valve cusps without reduced excursion. No aortic stenosis. Mild aortic regurgitation. Tricuspid Valve Tricuspid valve not well visualized, grossly normal. Moderate tricuspid regurgitation. Right ventricular systolic pressure estimated to be elevated at 51 mmHg. Pulmonic Valve Pulmonic valve not well visualized, grossly normal. Trace pulmonic regurgitation. Pericardium No pericardial effusion. Great Vessels Normal size aortic root. CONCLUSIONS Normal size left ventricle. Normal left ventricular wall thickness. Normal left ventricular ejection fraction visually estimated at > 60%. Mild mitral regurgitation. Mild aortic regurgitation. Moderate tricuspid regurgitation. Right ventricular systolic pressure estimated to be elevated at 51 mmHg. Trace pulmonic regurgitation. Dangelo Finley M.D. (Electronically Signed) Final Date: 15 Sep 2016 15:19 MEASUREMENTS (Male / Female) Normal Values 2D ECHO LV Diastolic Diameter PLAX 3.3 cm 4.2 - 5.9 / 3.9 - 5.3 cm LV Systolic Diameter PLAX 2.0 cm 2.1 - 4.0 cm LV Fractional Shortening PLAX 39.4 % 25 - 46 % LV Ejection Fraction 2D Teich 71.2 % IVS Diastolic Thickness 1.0 cm LVPW Diastolic Thickness 1.0 cm LV Relative Wall Thickness 0.6 RV Internal Dim ED PLAX 3.6 cm 1.9 - 3.8 cm LVOT Diameter 1.9 cm Aortic Root Diameter 2.6 cm LA Systolic Diameter LX 3.1 cm 3.0 - 4.0 / 2.7 - 3.8 cm LA Volume 39.0 cm 18 - 58 / 22 - 52 cm Ascending Aorta Diameter 2.5 cm DOPPLER AV Peak Velocity 129.0 cm/s AV Peak Gradient 6.7 mmHg AV Mean Velocity 82.0 cm/s AV Mean Gradient 3.0 mmHg AV Velocity Time Integral 25.3 cm LVOT Peak Velocity 78.2 cm/s LVOT Peak Gradient 2.4 mmHg LVOT Mean Velocity 49.5 cm/s LVOT Mean Gradient 1.0 mmHg LVOT Velocity Time Integral 14.6 cm LVOT Stroke Volume 41.4 cm AV Area Cont Eq vti 1.6 cm AV Area Cont Eq pk 1.7 cm MV Peak Velocity 92.6 cm/s MV Peak Gradient 3.4 mmHg MV Mean Velocity 39.5 cm/s MV Mean Gradient 1.0 mmHg Mitral E Point Velocity 69.6 cm/s MV PHT Velocity 98.2 cm/s MV Deceleration [place] 465.0 cm/s MV Pressure Half Time 63.4 ms MV Area PHT 3.5 cm MV Deceleration Time 338.0 ms TR Peak Velocity 341.0 cm/s TR Peak Gradient 46.5 mmHg Right Atrial Pressure 5.0 mmHg Pulmonary Artery Systolic Pressu 51.5 mmHg Right Ventricular Systolic Press 51.5 mmHg PV Peak Velocity 101.0 cm/s PV Peak Gradient 4.1 mmHg PV Mean Velocity 59.7 cm/s PV Mean Gradient 2.0 mmHg PV Velocity Time Integral 13.7 cm LV E' Lateral Velocity 10.6 cm/s Mitral E to LV E' Lateral Ratio 6.6 LV E' Septal Velocity 8.2 cm/s Mitral E to LV E' Septal Ratio 8.5
[2016-09-15 16:00] VITALS: BP 122/70
[2016-09-16] VITALS: BP 112/60
[2016-09-16 04:35] LABS: ABSOLUTE BASOPHIL COUNT 0 /CUMM (0.0-0.2); ABSOLUTE EOSINOPHIL COUNT 0.3 /CUMM (0.0-0.7); ABSOLUTE GRANULOCYTE CT 3.6 /CUMM (1.4-6.5); ABSOLUTE MONOCYTE COUNT 0.5 /CUMM (0.10-0.60); BASOPHIL % 0.5 % (0.0-2.0); EOSINOPHIL % 5.4 % (0-5); GRANULOCYTE % 66.5 % (42.2-75.2); HEMATOCRIT 31.4 % (37-47); MEAN CORPUSCULAR HGB CONC 33.7 G/DL (33.0-37.0); MEAN CORPUSCULAR VOLUME 86.2 FL (81.0-99.0); MEAN PLATELET VOLUME 8.3 FL (7.4-10.4); PLATELET COUNT 320 /CUMM (130-400); RBC DISTRIBUTION WIDTH 14.4 % (11.5-14.5); RED BLOOD CELL CT 3.64 /CUMM (4.20-5.40); WHITE BLOOD CELL COUNT 5.5 /CUMM (4.8-10.8)
[2016-09-16 04:42] LABS: PT 12.5 SEC (9.4-12.5); PTT 36 SEC (25-37)
--- NOTE | 2016-09-16 06:20 | NUR ---
PT NPO AFTER MN, FOR PACEMAKER PLACEMENT TODAY AT 1130. NSR 60;S MOST OF THE NIGHT. DENEIS PAIN AT THIS TIME.
--- NOTE | 2016-09-16 07:18 | PN- Housestaff ---
BROOKLYNN CRUZ,[facility] 09/16/16 0718: Subjective Follow-up For: 1. bradycardia with EKG changes 2. Right upper lung mass (adenocarcinoma), here for bronchospoy/LN biopsy 3. Hx of severe trigeminal neuralgia 4. Hyponatremia Tele-Events Since Last Visit: no events on telemetry Subjective: I saw the patient this am, she is alert and oriented, slept very well overnight. denies any further episode of dizziness or nausea again. denies palpitation, chest pain or SOB. Review of Systems Constitutional: Denies: chills, weakness. EENTM: Reports: no symptoms. Cardiovascular: Denies: chest pain, palpitations, peripheral edema, syncope. Respiratory: Denies: cough, short of breath, sputum production. Gastrointestinal: Denies: abdominal pain, changes in stool. Genitourinary: Reports: no symptoms. Musculoskeletal: Reports: no symptoms. Skin: Reports: no symptoms. Neurological/Psychological: Reports: no symptoms. Objective Last 24 Hrs of Vital Signs/I&O Vital Signs Date Time Temp Pulse Resp B/P B/P Pulse O2 O2 Flow FiO2 Mean Ox Delivery Rate / 0000 94 Room Air 05/ 0000 97.0 65 22 112/60 94 Room Air / 1600 95 Room Air / 1600 97.3 62 20 122/70 94 Room Air Intake & Output 09/16 1600 / 0800 09/16 0000 Intake Total 450 840 Output Total 600 Balance 450 240 Intake, IV 450 600 Intake, Oral 240 Output, Urine 600 Physical Exam General Appearance: Alert, Oriented X3, Cooperative, No Acute Distress Skin: No Significant Lesion Skin Temp/Moisture Exam: Warm/Dry Sepsis Skin Exam (color): Normal for Ethnicity HEENT: Atraumatic Neck: Supple, No JVD Cardiovascular: Regular Rate, Normal S1, Normal S2, No Murmurs Lungs: Clear to Auscultation, Normal Air Movement Abdomen: Soft, No Tenderness Neurological: Normal Speech, Normal Tone Extremities: No Edema, Normal Pulses Vascular: Pulses Symmetrical Assessment/Plan Assessment: Patient is a 76-year-old -Hond[place] female with PMH of TGN, meningioma s/p post gamma knife ablation at [facility], 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 Harrison who came for bronchoscopy/lymph node biopsy and was found to have nonspecific EKG changes and is admitted to telemetry for cardiac monitoring (physically in the ICU as tele hold). Problem list and plan: Bradycardia and EKG changes no further episodes since yesterday Asymptomatic. Yesterday we detected T-wave inversions in V3 and V4 on the EKG as well as QTc prolongation compared to original EKG. 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 Harrison History of severe trigeminal neuralgia * Gabapentin 300 mg TID * clonazepam 0.5 mg TID * Ox-carbamazepine 600 mg BID, need to consider changing this medication to avoid hyponatremia Heart healthy diet Lovenox for DVT prophylaxis - held this am in anticipation of the procedure DNI DNR Problem List: 1. Trigeminal neuralgia 2. Hyponatremia 3. EKG abnormality 4. Lung cancer Pain Ratin Pain Location: facial pain Pain Goal: Pain 4 or less Pain Plan: Gabapentin 300 mg TID clonazepam 0.5 mg TID Ox-carbamazepine 600 mg BID Tomorrow's Labs & Rationales: CBC (anemia), BEP and Mg (monitor electrolytes) VICTOR M CRUZ,[facility] 09/16/16 1142: Attending MD Review Statement Attending Statement Attending MD Statement: examined this patient, discuss w/resident/PA/HAND BANDER, agreed w/resident/PA/HAND BANDER, reviewed EMR data (avail), discussed with nursing, discussed with case mgmt, reviewed images, amended to note Attending Assessment/Plan: Patient seen and examined, feels well. Scheduled for pacemaker placement today. Vital Signs Date Time Temp Pulse Resp B/P B/P Pulse O2 O2 Flow FiO2 Mean Ox Delivery Rate 09/16 0800 Room Air 09/16 0800 98.3 67 20 124/72 95 Room Air 05/ 0000 94 Room Air 05/ 0000 97.0 65 22 112/60 94 Room Air 09/15 1600 95 Room Air 09/15 1600 97.3 62 20 122/70 94 Room Air On exam; aox3, nad cv; s1,s2, rrr resp; clear abd; soft,nt, bs+ ext; no edema. Laboratory Tests 09/16 09/16 09/15 09/15 0410 0010 1810 1416 Chemistry Sodium (137 - 145 mmol/L) 126 L 126 L 121 L 124 L Potassium (3.5 - 5.1 mmol/L) 4.0 4.0 4.2 4.2 Chloride (98 - 107 mmol/L) 95 L 95 L 89 L 91 L Carbon Dioxide (22 - 30 mmol/L) 25 25 24 25 Anion Gap (5 - 16) 6 6 8 8 BUN (7 - 17 mg/dL) 5 L 5 L 6 L 6 L Creatinine (0.5 - 1.0 mg/dL) 0.8 0.7 0.7 0.7 Estimated GFR (>60 ml/min) > 60 > 60 > 60 > 60 BUN/Creatinine Ratio (7 - 25 %) 6.3 L 7.1 8.6 8.6 Magnesium (1.6 - 2.3 mg/dL) 1.8 Coagulation PT (9.4 - 12.5 SEC) 12.5 INR (0.90 - 1.19) 1.19 APTT (25 - 37 SEC) 36 Hematology CBC w Diff NO MAN DIFF REQ WBC (4.8 - 10.8 /CUMM) 5.5 RBC (4.20 - 5.40 /CUMM) 3.64 L Hgb (12.0 - 16.0 G/DL) 10.6 L Hct (37 - 47 %) 31.4 L MCV (81.0 - 99.0 FL) 86.2 MCH (27.0 - 31.0 PG) 29.0 RDW (11.5 - 14.5 %) 14.4 Plt Count (130 - 400 /CUMM) 320 MPV (7.4 - 10.4 FL) 8.3 Gran % (42.2 - 75.2 %) 66.5 Lymphocytes % (20.5 - 51.1 %) 18.2 L Monocytes % (1.7 - 9.3 %) 9.4 H Eosinophils % (0 - 5 %) 5.4 H Basophils % (0.0 - 2.0 %) 0.5 Absolute Granulocytes (1.4 - 6.5 /CUMM) 3.6 Absolute Lymphocytes (1.2 - 3.4 /CUMM) 1.0 L Absolute Monocytes (0.10 - 0.60 /CUMM) 0.5 Absolute Eosinophils (0.0 - 0.7 /CUMM) 0.3 Absolute Basophils (0.0 - 0.2 /CUMM) 0 PUBS MCHC (33.0 - 37.0 G/DL) 33.7 A/P; 76 y/o F with pmh sig for trigeminal neuralgia, brain meningioma status post gamma knife at [facility] and newly diagnosed right upper lobe lung mass which was adenocarcinoma initially came into same day surgery for bronchoscopy for lymph node biopsy but then now admitted to telemetry secondary to having abnormal EKG/ bradycardia/ junctional rhythm. Patient scheduled for pacemaker today. She also had developed hyponatremia which is most likely secondary to SIADH. She has been started on IV fluids after the surgery she should be put on some fluid restriction which will be thousand cc in 24 hours. Sodium should be monitored after her procedure. Lovenox was held this morning. Possible discharge tomorrow if stable.
[2016-09-16 08:00] VITALS: BP 124/72
--- NOTE | 2016-09-16 13:13 | PN- Cardiology ---
Subjective Subjective: Clinically, the patient appears stable today. The patient's heart rate remains in the 50s. She denies any symptoms. Awaiting permanent pacemaker today. Objective Vital Signs and I&Os Vital Signs Date Time Temp Pulse Resp B/P B/P Pulse O2 O2 Flow FiO2 Mean Ox Delivery Rate 09/16 0800 Room Air / 08 98.3 67 20 124/72 95 Room Air 05/ 0000 94 Room Air 05/ 0000 97.0 65 22 112/60 94 Room Air / 1600 95 Room Air / 1600 97.3 62 20 122/70 94 Room Air Intake & Output 09/16 1600 09/16 0800 / 0000 / 1600 09/15 0800 09/15 0000 Intake Total 450 840 500 Output Total 350 600 450 Balance -350 450 240 50 Intake, IV 450 600 320 Intake, Oral 240 180 Number 1 0 Bowel Movements Output, Urine 350 600 450 Physical Exam: General Appearance: Alert, Oriented X3, Cooperative, No Acute Distress Skin: Normal Skin Temp/Moisture Exam: Warm/Dry Sepsis Skin Exam (color): Normal for Ethnicity HEENT: Normal Neck: Supple, No JVD, carotids normal bilaterally Cardiovascular: Regular Rate, Normal S1, Normal S2, 1/6 systolic murmur Lungs: Clear to Auscultation, Normal Air Movement Abdomen: Soft, No Tenderness Neurological: Normal/nonfocal Extremities: No Edema, Normal Pulses Vascular: Pulses Symmetrical Current Medications: Current Medications Sig/Frances Start time Last Medication Dose Route Stop Time Status Admin Clonazepam 0.5 MG TID 09/14 1600 AC 09/16 PO 09/21 1559 0832 Dextrose/Sodium 1,000 ML Q20H / 0800 AC / Chloride IV 0806 Dextrose/Sodium 1,000 ML Q20H / 0415 DC 05/ Chloride IV 0430 Dextrose/Sodium 1,000 ML Q13H / 1015 DC 05/ Chloride IV 1034 Enoxaparin Sodium 40 MG DAILY 09/15 1000 AC / SC 0948 Gabapentin 300 MG TID / 1600 AC / PO 0832 Magnesium Sulfate 1 GM ONCE ONE 09/16 0730 DC 05/ Dextrose/Water 100 ML IV 09/16 1129 0833 Magnesium Sulfate 1 GM ONCE ONE 09/15 1115 DC 05/ Dextrose/Water 100 ML IV 09/15 1514 1121 Oxcarbazepine 600 MG BID 09/14 1255 AC 09/16 PO 0832 Sodium Chloride 1,000 ML Q13H 09/15 1530 DC 09/15 IV 1601 Trimethobenzamide HCl 200 MG TID PRN 09/15 1115 AC 09/15 IM 1339 Results Last 48 Hrs of Labs/Mics: Laboratory Tests 09/16/16 0410: Anion Gap 6, Estimated GFR > 60, BUN/Creatinine Ratio 6.3 L, Magnesium 1.8, PT 12.5, INR 1.19, APTT 36, CBC w Diff NO MAN DIFF REQ, RBC 3.64 L, MCV 86.2, MCH 29.0, RDW 14.4, MPV 8.3, Gran % 66.5, Lymphocytes % 18.2 L, Monocytes % 9.4 H, Eosinophils % 5.4 H, Basophils % 0.5, Absolute Granulocytes 3.6, Absolute Lymphocytes 1.0 L, Absolute Monocytes 0.5, Absolute Eosinophils 0.3, Absolute Basophils 0, PUBS MCHC 33.7 09/16/16 0010: Anion Gap 6, Estimated GFR > 60, BUN/Creatinine Ratio 7.1 09/15/16 1810: Anion Gap 8, Estimated GFR > 60, BUN/Creatinine Ratio 8.6 09/15/16 1416: Anion Gap 8, Estimated GFR > 60, BUN/Creatinine Ratio 8.6 09/15/16 0655: Urine Osmolality 431, Ur Random Creatinine 137.0, Ur Random Sodium 74, Ur Random Potassium 43.2, Fraction Sodium Excret 0.3 09/15/16 0353: Anion Gap 7, Estimated GFR > 60, BUN/Creatinine Ratio 8.8, Serum Osmolality 261 L, Troponin I < 0.01, CBC w Diff NO MAN DIFF REQ, RBC 3.65 L, MCV 86.3, MCH 29.4, RDW 14.8 H, MPV 8.4, Gran % 55.6, Lymphocytes % 25.3, Monocytes % 13.9 H , Eosinophils % 4.7, Basophils % 0.5, Absolute Granulocytes 2.3, Absolute Lymphocytes 1.1 L, Absolute Monocytes 0.6, Absolute Eosinophils 0.2, Absolute Basophils 0, PUBS MCHC 34.0 09/15/16 0020: Anion Gap 9, Estimated GFR > 60, Glucose 96, Calcium 8.7, Phosphorus 4.0, Magnesium 1.7, Total Bilirubin 0.5, AST 22, ALT 25, Albumin 2.9 L 09/14/16 1500: Hemoglobin A1c 6.0 H, Troponin I < 0.01 09/14/16 1500: TSH 10.400 H, Free T4 0.53 L, PT 12.3, INR 1.17, APTT 41 H, CBC w Diff NO MAN DIFF REQ, RBC 3.99 L, MCV 87.1, MCH 29.2, RDW 14.3, MPV 9.1, Gran % 52.4, Lymphocytes % 31.0, Monocytes % 13.0 H, Eosinophils % 2.9, Basophils % 0.7, Absolute Granulocytes 1.8, Absolute Lymphocytes 1.1 L, Absolute Monocytes 0.4, Absolute Eosinophils 0.1, Absolute Basophils 0, PUBS MCHC 33.5 Microbiology 09/14 144 UPPER RESP: Surveillance Culture - COMP 09/14 1441 GI: Surveillance Culture - COMP Assessment/Plan Assessment/Plan Assessment: 1. Junctional bradycardia, with heart rate in the 40s. Likely symptomatic with lethargy and lightheadedness. 2. Lung mass, planned for biopsy 3. Anemia 4. Hyponatremia Recommendations: -Continue current medical management -The patient is currently nothing by mouth for permanent pacemaker today by Dr. Harrison -Follow-up electrolytes and magnesium level tomorrow. -Further plans after the above. Continue telemetry? Yes
--- NOTE | 2016-09-16 15:23 | RADIOLOGY REPORT ---
EXAMINATION: XR PORTABLE CHEST CLINICAL INFORMATION: Status post pacemaker . History of right upper lobe lung cancer. COMPARISON: Chest x-ray 08/03/2006. CT chest 09/10/2016 TECHNIQUE: Portable frontal view of the chest was obtained. 2:46 PM FINDINGS: Pacemaker lead in right atrium and right ventricle. Heart size normal. No pulmonary vascular congestion. No pleural effusion. No pneumothorax. Asymmetric elevation of left diaphragm compared to right. Rounded density, consistent with history of lung cancer, of right upper lobe with adjacent stranding extending toward the pleura has diminished in size since CAT scan of 09/09/2016. The lesion measured about 2.4 cm transverse on prior CAT scan and now measures about 1.7 cm transverse on chest x-ray. IMPRESSION: 1. Pacemaker lead in right atrium and right ventricle. 2. Decreasing size of right upper lung mass compared with CT of chest 09/09/2016.
--- NOTE | 2016-09-16 15:39 | RADIOLOGY REPORT ---
EXAMINATION:\H\ \N\XR CHEST CLINICAL INFORMATION: Double lead pacemaker insertion in OR. COMPARISON: CT scan of the chest 09/09/2016. TECHNIQUE: A single intraoperative frontal view of the with chest was obtained. FINDINGS: 2 pacemaker leads are noted with tips in the right atrium and right ventricle. The mass in the right upper lobe is not included on the [id number]. Fluoroscopy time: 10 minutes. IMPRESSION: 1. Single intraoperative view of the chest demonstrating 2 pacemaker leads as described above.
--- NOTE | 2016-09-16 15:51 | PN- Thoracic Surgery ---
Subjective Subjective: The patient was seen this evening postoperatively. She reports that her pain is under adequate control S other complaints at the current time. She denies any chest pain, difficulty breathing, or palpitations. Objective Vital Signs and I&Os Vital Signs Date Time Temp Pulse Resp B/P B/P Pulse O2 O2 Flow FiO2 Mean Ox Delivery Rate 09/17 799 Room Air 09/16 0800 98.3 67 20 124/72 95 Room Air / 0000 94 Room Air 09/16 0000 97.0 65 22 112/60 94 Room Air / 1600 95 Room Air / 1600 97.3 62 20 122/70 94 Room Air Intake & Output / 1600 / 08/ 0000 / 1600 / 0800 09/15 0000 Intake Total 400 450 840 500 Output Total 350 600 450 Balance 50 450 240 50 Intake, IV 400 450 600 320 Intake, Oral 240 180 Number 0 1 0 Bowel Movements Output, Urine 350 600 450 Postoperative chest x-ray showing pacemaker leads in adequate position and no pneumothorax Postoperative EKG shows a paced sinus rhythm at 64 bpm Physical Exam: Gen.: Alert and in no obvious distress Skin: Warm and dry Chest: Nontender with equal expansion. Left upper chest with surgical pressure dressing which is clean, dry, and intact without signs of gross hematoma or bleeding. Cardiac: S1-S2 regular Pulmonary: Bilateral breath sounds equal with good exchange Extremities: Bilateral lower extremities are warm without calf tenderness. Assessment/Plan Assessment/Plan Assessment: 76-year-old female status post placement of permanent pacemaker. Postoperatively patient is progressing as expected and her pain is under control. Her chest x-ray and EKG appear to be within reasonable limits. Recommendations: Continue grain blender for at least overnight Keep the arm in sling and pressure dressing on until the morning May use DVT prophylaxis only but no other anticoagulation starting in the morning Continue care per primary team
[2016-09-16 16:45] VITALS: BP 150/84
--- NOTE | 2016-09-16 16:45 | NUR ---
PATIENT RETURNED FROM PACU AFTER PACEMAKER INSERTION BY DR MALCOLM. PATIENT ALERT AND ORIENTED ON ARRIVAL, TERRY, DRESSING TO L SHOULDER DRY AND INTACT WITH GLENYS WRAP TO THE OUTSIDE. PATIENT STATES PAIN IS A 2 AND APPEARS COMFORTABLE. ABLE TO MOVE ALL EXTREMITIES ON COMMAND, TERRY. LUNGS CLEAR BUT DIMINISHED AT BASES. ABD SOFT NON TENDER WITH GOOD BOWEL SOUNDS. MONITOR SR RATE OF 67. SKIN INTACT, VOIDED 200CC IN PACU PER RN. PATIENT TAKING SIPS OF WATER WITHOUT PROBLEMS.
--- NOTE | 2016-09-16 18:21 | Operative Report ---
Operative/Inv Procedure Report Surgery Date: 09/16/16 Name of Procedure: MRI compatible dual-chamber pacemaker Pre-Operative Diagnosis: Sick sinus syndrome with junctional bradycardia Post-Operative Diagnosis: Same Estimated Blood Loss: less than 50ml Surgeon/Bottom Man: Dr. Harrison Anesthesia: local monitored anesthesi Operative/Procedure Note Note: After placement of monitoring lines the patient's left chest and shoulder area were prepped with chlorhexidine scrub and draped in sterile fashion. 1% lidocaine was used local anesthetic. An incision was made in the deltopectoral groove and carried down to prepectoralis fascia. The cephalic vein was dissected free and was a fairly good caliber vessel. A guidewire was passed after the vein was looped and the opened and the wire was passed into the right atrium under fluoroscopic guidance. A 9 Haitian dilator system was passed over the wire. A Medtronic ventricular lead model #[id number] was then advanced to the pulmonary outflow tract under fluoroscopic guidance. It was withdrawn into the right ventricular cavity and positioned at the apex with a good amount of slack. R waves were measured at 15.5 mV. The pacing threshold was at 0.7 V with an impedance of 1326 ohms. A 7 Haitian dilator was then passed over the retained wire and a Medtronic atrial lead model #[id number] was then advanced into the right atrium and positioned in the right atrial appendage. P waves were measured at 4.6 mV. The pacing threshold was at 0.3 V with an impedance of 629 ohms. The leads were tied to the cephalic vein which was occluded. A pacemaker pocket was then fashioned the prepectoralis fashion the leads were secured to the fascia. The leads were then connected to a an MRI compatible Medtronic dual-chamber pacemaker. The pocket was flushed with antibiotic irrigation and hemostasis was achieved with electrocautery and with surgical clips. The incision was then closed with running Vicryl suture followed by running Vicryl subarticular suture. The patient heart of the procedure well and brought to recovery room awake in stable condition. CC: MIKAEL CRUZ,KAIDEN; HELENA CRUZ,TAVO
[2016-09-17] VITALS: BP 118/70
[2016-09-17 05:01] LABS: ABSOLUTE BASOPHIL COUNT 0 /CUMM (0.0-0.2); ABSOLUTE EOSINOPHIL COUNT 0.2 /CUMM (0.0-0.7); ABSOLUTE GRANULOCYTE CT 2.6 /CUMM (1.4-6.5); ABSOLUTE LYMPH COUNT 0.8 /CUMM (1.2-3.4); ABSOLUTE MONOCYTE COUNT 0.6 /CUMM (0.10-0.60); BASOPHIL % 0.5 % (0.0-2.0); EOSINOPHIL % 5.7 % (0-5); GRANULOCYTE % 60.2 % (42.2-75.2); HEMATOCRIT 30.6 % (37-47); MEAN CORPUSCULAR HGB 29.2 PG (27.0-31.0); MEAN CORPUSCULAR HGB CONC 33.8 G/DL (33.0-37.0); MEAN CORPUSCULAR VOLUME 86.2 FL (81.0-99.0); MEAN PLATELET VOLUME 8.2 FL (7.4-10.4); PLATELET COUNT 315 /CUMM (130-400); RBC DISTRIBUTION WIDTH 14.9 % (11.5-14.5); RED BLOOD CELL CT 3.56 /CUMM (4.20-5.40); WHITE BLOOD CELL COUNT 4.3 /CUMM (4.8-10.8)
--- NOTE | 2016-09-17 07:14 | PN- Housestaff ---
BROOKLYNN CRUZ,[facility] 09/17/16 0714: Subjective Follow-up For: 1. s/p pacemaker waiting for interrogation 2. hyponatremia 3. left lung mass, will undergo bronchoscopy after discharge Tele-Events Since Last Visit: no events overnight Subjective: I saw the patient at bedside today, she is alert and oriented in no distress. denies pain at the pacemaker site, denies dizziness, palpitation, chest pain. Review of Systems Constitutional: Denies: chills, fever, malaise, weakness. EENTM: Reports: no symptoms. Cardiovascular: Denies: chest pain, palpitations, peripheral edema, syncope. Respiratory: Denies: cough, short of breath, sputum production. Gastrointestinal: Denies: abdominal pain, changes in stool. Genitourinary: Reports: no symptoms. Musculoskeletal: Reports: no symptoms. Skin: Reports: no symptoms. Objective Last 24 Hrs of Vital Signs/I&O Vital Signs Date Time Temp Pulse Resp B/P B/P Pulse O2 O2 Flow FiO2 Mean Ox Delivery Rate 09/17 0800 98 Nasal 2.0L Cannula 09/17 0000 98 Nasal 2.0L Cannula 09/17 0000 97.0 62 16 118/70 98 Nasal 2.0L Cannula 09/16 1645 98 Nasal 2.0L Cannula 09/16 1645 98.4 72 18 150/84 98 Nasal 2.0L Cannula Intake & Output 09/17 1600 09/17 0800 09/17 0000 Intake Total 547 420 Output Total 350 200 Balance 197 220 Intake, IV 547 300 Intake, Oral 120 Output, Urine 350 200 Patient 73.482 kg Weight Physical Exam General Appearance: Alert, Oriented X3, Cooperative, No Acute Distress Skin: No Rashes Skin Temp/Moisture Exam: Warm/Dry Sepsis Skin Exam (color): Normal for Ethnicity HEENT: Atraumatic, Mucous Membr. moist/pink Neck: Supple Cardiovascular: Normal S1, Normal S2, No Murmurs Lungs: Normal Air Movement, scattered wheezing on both sides Abdomen: Soft, No Tenderness Neurological: Normal Speech, Normal Tone Extremities: trace LE edema bilaterally Vascular: Pulses Symmetrical Current Medications: Current Medications Sig/Frances Start time Last Medication Dose Route Stop Time Status Admin Acetaminophen 650 MG Q4P PRN 09/16 1900 AC PO Cefazolin Sodium 1,000 MG ONCE ONE 09/16 1814 DC 09/16 IV 09/16 1816 1858 Clonazepam 0.5 MG TID 09/14 1600 AC 09/17 PO 09/21 1559 0904 Dextrose/Sodium 1,000 ML Q20H 09/16 0800 DC 09/16 Chloride IV 0806 Enoxaparin Sodium 40 MG DAILY 09/15 1000 DC 09/15 SC 0948 Gabapentin 300 MG TID 09/14 1600 AC 09/17 PO 0904 Hydromorphone HCl 0.4 MG Q4P PRN 09/16 1900 AC IV Ibuprofen 400 MG Q6P PRN 09/16 1900 AC 09/16 PO 1909 Oxcarbazepine 600 MG BID 09/14 1255 AC 09/17 PO 0904 Sodium Chloride 1,000 ML Q13H 09/16 1830 DC 09/17 IV 0915 Trimethobenzamide HCl 200 MG TID PRN 09/15 1115 AC 09/15 IM 1339 Last 24 Hrs of Lab/Km Results Last 24 Hrs of Labs/Mics: Laboratory Tests 09/17/16 0343: Anion Gap 7, Estimated GFR > 60, BUN/Creatinine Ratio 5.7 L, Magnesium 1.8, CBC w Diff NO MAN DIFF REQ, RBC 3.56 L, MCV 86.2, MCH 29.2, RDW 14.9 H, MPV 8.2, Gran % 60.2, Lymphocytes % 19.7 L, Monocytes % 13.9 H, Eosinophils % 5.7 H, Basophils % 0.5, Absolute Granulocytes 2.6, Absolute Lymphocytes 0.8 L, Absolute Monocytes 0.6, Absolute Eosinophils 0.2, Absolute Basophils 0, PUBS MCHC 33.8 09/16/16 1650: Anion Gap 7, Estimated GFR > 60, BUN/Creatinine Ratio 5.7 L Assessment/Plan Assessment: Patient is a 76-year-old -[place] female with PMH of TGN, meningioma s/p post gamma knife ablation at [facility], 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 Harrison who came for bronchoscopy/lymph node biopsy and was found to have nonspecific EKG changes and is admitted to telemetry for cardiac monitoring (physically in the ICU as tele hold). Problem list and plan: Bradycardia and EKG changes, s/p pacemaker placement, day1 no events overnight, interrogation this am was negative. Asymptomatic. * ok to be discharged from cardiac stand point, will follow up with Dr. 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 Harrison after discharge History of severe trigeminal neuralgia * Gabapentin 300 mg TID * clonazepam 0.5 mg TID * Ox-carbamazepine 600 mg BID Heart healthy diet DVT prophylaxis with ALPS DNI DNR Problem List: 1. Trigeminal neuralgia 2. Hyponatremia 3. Lung cancer 4. EKG abnormality 5. Pacemaker Pain Ratin Pain Location: currentlt denies pain, has [id number] pain control pathways for possible pain at the pacemaker site Pain Goal: Pain 4 or less Pain Plan: tylenol, ibuprofen, dilaudid Tomorrow's Labs & Rationales: BEP for hyponatremia VICTOR M CRUZ,ISMAEL 09/17/16 1140: Attending MD Review Statement Attending Statement Attending MD Statement: examined this patient, discuss w/resident/PA/TOP LIFT TRIMMER, agreed w/resident/PA/TOP LIFT TRIMMER, discussed with family, reviewed EMR data (avail), discussed with nursing, reviewed images, amended to note Attending Assessment/Plan: Patient seen and examined, status post pacemaker placement yesterday. This morning it was interrogated and seems to be working fine. Sodium level 127 today. Heart rate remained stable. vss. on exam; aox3, nad cv; s1,s2, rrr + dressing on left sided pace maker. resp; clear abd; soft, nt, bs+ ext; no edema. Laboratory Tests 09/17 09/16 0343 1650 Chemistry Sodium (137 - 145 mmol/L) 127 L 126 L Potassium (3.5 - 5.1 mmol/L) 4.0 4.1 Chloride (98 - 107 mmol/L) 96 L 93 L Carbon Dioxide (22 - 30 mmol/L) 24 26 Anion Gap (5 - 16) 7 7 BUN (7 - 17 mg/dL) 4 L 4 L Creatinine (0.5 - 1.0 mg/dL) 0.7 0.7 Estimated GFR (>60 ml/min) > 60 > 60 BUN/Creatinine Ratio (7 - 25 %) 5.7 L 5.7 L Magnesium (1.6 - 2.3 mg/dL) 1.8 Hematology CBC w Diff NO MAN DIFF REQ WBC (4.8 - 10.8 /CUMM) 4.3 L RBC (4.20 - 5.40 /CUMM) 3.56 L Hgb (12.0 - 16.0 G/DL) 10.4 L Hct (37 - 47 %) 30.6 L MCV (81.0 - 99.0 FL) 86.2 MCH (27.0 - 31.0 PG) 29.2 RDW (11.5 - 14.5 %) 14.9 H Plt Count (130 - 400 /CUMM) 315 MPV (7.4 - 10.4 FL) 8.2 Gran % (42.2 - 75.2 %) 60.2 Lymphocytes % (20.5 - 51.1 %) 19.7 L Monocytes % (1.7 - 9.3 %) 13.9 H Eosinophils % (0 - 5 %) 5.7 H Basophils % (0.0 - 2.0 %) 0.5 Absolute Granulocytes (1.4 - 6.5 /CUMM) 2.6 Absolute Lymphocytes (1.2 - 3.4 /CUMM) 0.8 L Absolute Monocytes (0.10 - 0.60 /CUMM) 0.6 Absolute Eosinophils (0.0 - 0.7 /CUMM) 0.2 Absolute Basophils (0.0 - 0.2 /CUMM) 0 PUBS MCHC (33.0 - 37.0 G/DL) 33.8 A/P; 76 y/o F with pmh sig for trigeminal neuralgia, brain meningioma status post gamma knife at [facility] and newly diagnosed right upper lobe lung mass which was adenocarcinoma initially came into same day surgery for bronchoscopy for lymph node biopsy but then now admitted to telemetry secondary to having abnormal EKG/ bradycardia. S/P pacemaker placement today. Pacemaker was interrogated this morning and seems to be working fine. Sodium level still on the low side. Patient be started on diet but will also start some fluid restriction. Patient should be ablated, please obtain PT evaluation recheck sodium in the morning. If stable and emulating well, patient be discharged home tomorrow.
--- NOTE | 2016-09-17 10:42 | PN- Thoracic Surgery ---
Subjective Subjective: see by Dr Harrison Objective Vital Signs and I&Os Vital Signs Date Time Temp Pulse Resp B/P B/P Pulse O2 O2 Flow FiO2 Mean Ox Delivery Rate 09/17 0000 98 Nasal 2.0L Cannula 09/17 97.0 62 16 118/70 98 Nasal 2.0L Cannula 09/16 1644 98 Nasal 2.0L Cannula 09/16 1644 98.4 72 18 150/84 98 Nasal 2.0L Cannula Intake & Output 09/17 0000 09/16 0000 Intake Total 547 420 400 450 840 Output Total 350 200 350 600 Balance 197 220 50 450 240 Intake, IV 547 300 400 450 600 Intake, Oral 120 240 Number 0 Bowel Movements Output, Urine 350 200 350 600 Assessment/Plan Assessment/Plan dw Dr Harrison, stable for CT surgical standpoint, had PPM interrogation this am, please call with any further concerns.
--- NOTE | 2016-09-17 10:56 | PN- Cardiology ---
Subjective Subjective: The patient reports that she is feeling well. Pacemaker was successfully placed yesterday, and was interrogated this morning and found to be functioning normally. No chest pain. No shortness of breath. No palpitations. Objective Vital Signs and I&Os Vital Signs Date Time Temp Pulse Resp B/P B/P Pulse O2 O2 Flow FiO2 Mean Ox Delivery Rate 09/17 0000 98 Nasal 2.0L Cannula 09/17 0000 97.0 62 16 118/70 98 Nasal 2.0L Cannula 09/16 1644 98 Nasal 2.0L Cannula 09/16 1644 98.4 72 18 150/84 98 Nasal 2.0L Cannula Intake & Output 09/17 0809/17 0000 09/16 1600 09/16 0000 Intake Total 547 420 400 450 840 Output Total 350 200 350 600 Balance 197 220 50 450 240 Intake, IV 547 300 400 450 600 Intake, Oral 120 240 Number 0 Bowel Movements Output, Urine 350 200 350 600 Physical Exam: Gen: The patient is in no acute distress HEENT: Normal nose, ears, and oropharynx. Pupils equal bilaterally. Conjunctiva normal. Neck: Supple with no JVD, no masses, and no thyromegaly Lungs: Clear to auscultation with normal respiratory effort Heart: RRR, S1, S2, no murmurs. No peripheral edema, 2+ pulses in the lower extremities bilaterally Abdomen: Soft, nontender, no masses. No hepatomegaly. No splenomegaly Extremities: No clubbing or cyanosis. Normal muscle strength in the upper and lower extremities Skin: Normal skin turgor with no skin ulcers or lesions noted. Current Medications: Current Medications Sig/Frances Start time Last Medication Dose Route Stop Time Status Admin Acetaminophen 650 MG Q4P PRN 09/16 1900 AC PO Acetaminophen 1,000 MG .STK-MED ONE 09/16 1229 DC IV 09/16 1230 Cefazolin Sodium 1,000 MG ONCE ONE 09/16 1815 DC 09/16 IV 09/16 1816 1858 Clonazepam 0.5 MG TID 09/14 1600 AC 09/17 PO 09/21 1559 0904 Dextrose/Sodium 1,000 ML Q20H 09/16 0800 DC 09/16 Chloride IV 0806 Enoxaparin Sodium 40 MG DAILY 09/15 1000 DC 09/15 SC 0948 Fentanyl Citrate 100 MCG .STK-MED ONE 09/16 1229 DC IM 09/16 1230 Gabapentin 300 MG TID 09/14 1600 AC 09/17 PO 0904 Hydromorphone HCl 0.4 MG Q4P PRN 09/16 1900 AC IV Ibuprofen 400 MG Q6P PRN 09/16 1900 AC 09/16 PO 1909 Magnesium Sulfate 1 GM ONCE ONE 09/16 0730 DC 09/16 Dextrose/Water 100 ML IV 09/16 1129 0833 Oxcarbazepine 600 MG BID 09/14 1255 AC 09/17 PO 0904 Sodium Chloride 1,000 ML Q13H 09/16 1830 AC 09/17 IV 0915 Trimethobenzamide HCl 200 MG TID PRN 09/15 1115 AC 09/15 IM 1339 Results Last 48 Hrs of Labs/Mics: Laboratory Tests 09/17/16 0343: Anion Gap 7, Estimated GFR > 60, BUN/Creatinine Ratio 5.7 L, Magnesium 1.8, CBC w Diff NO MAN DIFF REQ, RBC 3.56 L, MCV 86.2, MCH 29.2, RDW 14.9 H, MPV 8.2, Gran % 60.2, Lymphocytes % 19.7 L, Monocytes % 13.9 H, Eosinophils % 5.7 H, Basophils % 0.5, Absolute Granulocytes 2.6, Absolute Lymphocytes 0.8 L, Absolute Monocytes 0.6, Absolute Eosinophils 0.2, Absolute Basophils 0, PUBS MCHC 33.8 09/16/16 1650: Anion Gap 7, Estimated GFR > 60, BUN/Creatinine Ratio 5.7 L 09/16/16 0410: Anion Gap 6, Estimated GFR > 60, BUN/Creatinine Ratio 6.3 L, Magnesium 1.8, PT 12.5, INR 1.19, APTT 36, CBC w Diff NO MAN DIFF REQ, RBC 3.64 L, MCV 86.2, MCH 29.0, RDW 14.4, MPV 8.3, Gran % 66.5, Lymphocytes % 18.2 L, Monocytes % 9.4 H, Eosinophils % 5.4 H, Basophils % 0.5, Absolute Granulocytes 3.6, Absolute Lymphocytes 1.0 L, Absolute Monocytes 0.5, Absolute Eosinophils 0.3, Absolute Basophils 0, PUBS MCHC 33.7 09/16/16 0010: Anion Gap 6, Estimated GFR > 60, BUN/Creatinine Ratio 7.1 09/15/16 1810: Anion Gap 8, Estimated GFR > 60, BUN/Creatinine Ratio 8.6 09/15/16 1416: Anion Gap 8, Estimated GFR > 60, BUN/Creatinine Ratio 8.6 Recent Imaging Studies: Chest x-ray: CXR: 1. Pacemaker lead in right atrium and right ventricle. 2. Decreasing size of right upper lung mass compared with CT of chest 09/09/2016. Assessment/Plan Assessment/Plan Assessment: 1. Symptomatic junctional bradycardia, status post permanent pacemaker placement 2. Lung mass, planned for biopsy 3. Pacemaker interrogated this morning and functioning normally Plan: * Clear for discharge to home from cardiac standpoint. * Follow up with me in the office in one week. * Pacemaker interrogation will be arranged in my office. Continue telemetry? No
--- NOTE | 2016-09-17 15:01 | Patient Discharge Instructions ---
Discharge Instructions General Discharge Information You were seen/treated for: bradycardia, pacemaker placement Special Instructions: Please: 1. limit your fluid intake to 1200 cc for 5 days. 2. do blood work in 1 week for sodium level and copy PCP, Dr. Burns. 3. follow up with your PCP within 1-2 weeks of discharge regarding hyponatremia and possibility of modification of the medication for trigeminal neuralgia. 4. follow up with Dr. Finley in the office in 1 week. 5. follow up with Dr. Harrison next week on September 24. 6. come back to the ED if you have chest pain, palpitation, dizziness, diffculty breathing. Acute Coronary Syndrome Inclusion Criteria At DC or during hospital stay patient has or had the following: ACS DIAGNOSIS No Discharge Core Measures Meds if any: Prescribed or Continued at Discharge Meds if any: NOT Prescribed or Continued at Discharge Congestive Heart Failure Inclusion Criteria At DC or during hospital stay patient has or had the following: CHF DIAGNOSIS No Discharge Core Measures Meds if any: Prescribed or Continued at Discharge Meds if any: NOT Prescribed or Continued at Discharge Cerebrovascular accident Inclusion Criteria At DC or during hospital stay patient has or had the following: CVA/TIA Diagnosis No Discharge Core Measures Meds if any: Prescribed or Continued at Discharge Meds if any: NOT Prescribed or Continued at Discharge Venous thromboembolism Inclusion Criteria VTE Diagnosis No VTE Type NONE VTE Confirmed by (Test) NONE Discharge Core Measures - Per Current guidelines, there needs to be overlap - treatment for the first 5 days of Warfarin therapy. - If discharged on Warfarin prior to 5 days of - overlap therapy, the patient will need to be - assessed for post discharge needs including - *Post discharge parental anticoagulation - *Warfarin and/or parental anticoagulation education - *Follow up date to check INR post discharge At least 5 days overlap therapy as Inpatient No Meds if any: Prescribed or Continued at Discharge Note: Overlap Therapy is Warfarin and Anticoagulant Meds if any: NOT Prescribed or Continued at Discharge
--- NOTE | 2016-09-17 15:59 | Discharge Summary ---
Visit Information Visit Dates Admission Date: 09/14/16 Discharge Date: 09/18/16 Hospital Course Course Attending Physician: ISMAEL DOW MD Primary Care Physician: RAYRAY CHAWLA MD Consulting Request: 1 Consulting Specialty: Cardiology Consulting Physician: Dr. Malik Reason for Consult: Bradycardia and EKG changes Consulting Request: 2 Consulting Specialty: Thoracic/Vascular Surgery Consulting Physician: Dr. Harrison Reason for Consult: Pacemaker placement Hospital Course: Patient is 76-year-old -H[place]ian female with PMH of trigeminal neuralgia, brain meningioma status post gamma knife at [facility] and newly diagnosed right upper lobe lung mass in June 2016, with a biopsy is significant for adenocarcinoma , came to [facility] for a bronchoscopy/lymph node biopsy and while being prepared for the surgery she reportedly was found to have a junctional rate. Surgery was postponed pending cardiac evaluation. Review of records from [facility] showed that she had been diagnosed multiple times in the past with junctional bradycardia and sinus bradycardia. This was found in the past to be asymptomatic and pacemaker was not indicated. She denied any symptoms attributable to bradycardia. 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 No chest pain. No syncope. No shortness of breath. No palpitations. No diaphoresis. No nausea or vomiting. She reported mild coughs with sputum production but without hemoptysis. She denied any fever, chills but reported weakness and lethargy. She also reported 40 pounds weight loss in the last 6 months. Patient was admitted to the ICU (as a telemetry hold) and the following were addressed during her stay. Symptomatic bradycardia Cardiology recommended a permanent pacemaker placement given the bradycardia with rates as low as 40 and the patient reporting symptoms of dizziness and nausea. She underwent pacemaker placement on the 3rd day of hospitalization. Interrogation of the pacemaker the next day reported normal function. * Patient will follow up with Dr. Malik in the office within a week. * Interrogation will be arranged in the office as well. 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 Patient was put on fluid restriction of 1000 cc which resulted in improvement of her Na from 125 to 132, this also confirms SIADH. * She will continue fluid restriction of 1200 cc for 5 more days, recheck BEP and follow up with PCP within a week. * Please note that the patient may benefit from changing Oxcarbazepine to another agent for the treatment of her TGN. Hypothyroidism With TSH of 10.4 and Free T4 of 0.53. Does not have any history of hypothyroidism. This may have contributed to bradycardia and hyponatremia as well. * Please follow up with PCP within 1-2 weeks and recheck TFT Right upper lobe lung mass Biopsy consistent with adenocarcinoma * Patient will undergo bronchoscopy by Dr. Harrison after discharge. History of severe trigeminal neuralgia Continued Gabapentin 300 mg TID, clonazepam 0.5 mg TID, Ox-carbamazepine 600 mg BID. Oxcarbazepine may need to adjusted by PCP to another agent to prevent SIADH. Allergies: Coded Allergies: acetaminophen (From DARVOCET-N) (Intermediate, DIZZINESS, NAUSEA 09/14/16) propoxyphene (From DARVOCET-N) (Intermediate, DIZZINESS, NAUSEA 09/14/16) Significant Procedures: SERVICE DATE: 09/12/16 EXAM TYPE: RAD - XRY-PORTABLE CHEST XRAY EXAMINATION: XR CHEST PORTABLE CLINICAL INFORMATION: Chest pain, near syncope. COMPARISON: Multiple priors, most recent chest radiographs dated 01/31/2016. TECHNIQUE: Portable AP portable view of the chest was obtained. FINDINGS: There is a new linear density overlying the right lower lobe with minimal adjacent atelectasis, which has the appearance of a pleural line. This finding is nonspecific and a PA and lateral examination is recommended to help further characterize. There is no pleural effusion or pneumothorax. Sternal wires and multiple mediastinal surgical clips are redemonstrated. There is stable cardiomegaly. The osseous structures are unchanged. IMPRESSION: 1. Nonspecific linear density overlying the right lower lobe, new since the prior examination. PA and lateral radiographs are recommended to help further characterize. 2. Otherwise, no significant interval change since the prior examination. DICTATED BY: CORONA IZQUIERDO MD DATE/TIME DICTATED:09/12/162223 DESIGN MANAGER:MICHELE DATE/TIME TRANSCRIBED:09/12/162223 SERVICE DATE: 09/13/16- EXAM TYPE: CARD - ECHOCARDIOGRAM FINDINGS Left Ventricle Normal left ventricular size with mild left ventricular hypertrophy. Mildly decreased systolic function with posterior wall akinesis to dyskinesis. Normal left ventricular diastolic filling pattern for age. The ejection fraction is visually estimated at 40%. Right Ventricle The right ventricle is normal in size and function. Right Atrium The right atrium is normal in size. Left Atrium The left atrium is moderately enlarged. The interatrial septum is intact. Mitral Valve The mitral valve is normal in structure and function. There is mild mitral regurgitation. Aortic Valve Tricuspid Valve The tricuspid valve is normal in structure and function. There is moderate tricuspid regurgitation. Pulmonary artery systolic pressure is normal. Pulmonic Valve Structurally normal pulmonic valve. There is mild pulmonic regurgitation. Pericardium Normal pericardium without effusion. No pleural effusion. Great Vessels Normal aortic root dimension. The aortic arch and great vessels are well seen and are normal. CONCLUSIONS 1. Mildly decreased EF of 40% with posterior wall akinesis to dyskinesis. 2. Mild left ventricular hypertrophy. 3. Moderate left atrial enlargement. 4. Mild mitral regurgitation. 5. Moderate tricuspid regurgitation. 6. Mild aortic regurgitation. 7. Mild pulmonic regurgitation. Kashif Contreras M.D. (Electronically Signed) Final Date: 14 Sep 2016 07:04 MEASUREMENTS (Male / Female) Normal Values 2D ECHO LV Diastolic Diameter PLAX 5.4 cm 4.2 - 5.9 / 3.9 - 5.3 cm LV Systolic Diameter PLAX 4.3 cm 2.1 - 4.0 cm LV Fractional Shortening PLAX 20.4 % 25 - 46 % LV Ejection Fraction 2D Teich 41.2 % IVS Diastolic Thickness 1.4 cm LVPW Diastolic Thickness 1.0 cm LV Relative Wall Thickness 0.4 RV Internal Dim ED PLAX 3.3 cm 1.9 - 3.8 cm LVOT Diameter 2.0 cm Aortic Root Diameter 3.3 cm LA Systolic Diameter LX 4.9 cm 3.0 - 4.0 / 2.7 - 3.8 cm LA Volume 68.0 cm 18 - 58 / 22 - 52 cm Ascending Aorta Diameter 3.5 cm DOPPLER AV Peak Velocity 112.0 cm/s AV Peak Gradient 5.0 mmHg AV Mean Velocity 81.1 cm/s AV Mean Gradient 3.0 mmHg AV Velocity Time Integral 29.1 cm LVOT Peak Velocity 102.0 cm/s LVOT Peak Gradient 4.2 mmHg LVOT Mean Velocity 67.1 cm/s LVOT Mean Gradient 2.0 mmHg LVOT Velocity Time Integral 23.9 cm LVOT Stroke Volume 75.1 cm AV Area Cont Eq vti 2.6 cm AV Area Cont Eq pk 2.9 cm MV Peak Velocity 94.6 cm/s MV Peak Gradient 3.6 mmHg MV Mean Velocity 49.5 cm/s MV Mean Gradient 1.0 mmHg Mitral E Point Velocity 98.7 cm/s Mitral A Point Velocity 42.9 cm/s Mitral E to A Ratio 2.3 MV PHT Velocity 98.9 cm/s MV Deceleration [place] 243.0 cm/s MV Pressure Half Time 122.1 ms MV Area PHT 1.8 cm MV Deceleration Time 134.0 ms TR Peak Velocity 265.0 cm/s TR Peak Gradient 28.1 mmHg Right Atrial Pressure 10.0 mmHg Pulmonary Artery Systolic Pressu 38.1 mmHg Right Ventricular Systolic Press 38.1 mmHg PV Peak Velocity 103.0 cm/s PV Peak Gradient 4.2 mmHg PV Mean Velocity 58.3 cm/s PV Mean Gradient 2.0 mmHg PV Velocity Time Integral 21.3 cm LV E' Lateral Velocity 13.3 cm/s Mitral E to LV E' Lateral Ratio 7.4 LV E' Septal Velocity 5.4 cm/s Mitral E to LV E' Septal Ratio 18.4 DICTATED BY: JOSUE CRUZ PhD,KASHIF Lew DATE/TIME DICTATED:09/14/16703 DESIGN MANAGER:MICHELE DATE/TIME TRANSCRIBED:09/14/16703 Pertinent Lab Results: 09/17/16 0343: Anion Gap 7, Estimated GFR > 60, BUN/Creatinine Ratio 5.7 L, Magnesium 1.8, CBC w Diff NO MAN DIFF REQ, RBC 3.56 L, MCV 86.2, MCH 29.2, RDW 14.9 H, MPV 8.2, Gran % 60.2, Lymphocytes % 19.7 L, Monocytes % 13.9 H, Eosinophils % 5.7 H, Basophils % 0.5, Absolute Granulocytes 2.6, Absolute Lymphocytes 0.8 L, Absolute Monocytes 0.6, Absolute Eosinophils 0.2, Absolute Basophils 0, PUBS MCHC 33.8 09/16/16 1650: Anion Gap 7, Estimated GFR > 60, BUN/Creatinine Ratio 5.7 L Disposition Summary Disposition Principal Diagnosis: Symptomatic bradycardia requiring pacemaker Additional Diagnosis: Hyponatremia Hypothyroidism Trigeminal Neuralgia Discharge Disposition: home health services Discharge Instructions General Discharge Information Code Status: Do Not Resucitate/Intubat Patient's Diet: Heart healthy Patient's Activity: As tolerated Follow-Up Instructions/Appts: Please: Please: 1. limit your fluid intake to 1200 cc for 5 days, check your blood work in 1 week for sodium level and copy PCP, Dr. Chawla. Also please note that your thyroid test shows hypothyroidism. Follow up with Dr. Chawla to recheck thyroid function test and to start levothyroxine. 3. follow up with your PCP within 1-2 weeks of discharge regarding hyponatremia and possibility of modification of the medication for trigeminal neuralgia. 4. follow up with Dr. Malik in the office in 1 week. 5. follow up with Dr. Harrison next week on September 24. 6. come back to the ED if you have chest pain, palpitation, dizziness, difficultly breathing. Medications at Discharge Discharge Medications: Continue taking these medications: Clonazepam (Clonazepam) 0.5 MG TABLET 1 Tablet ORAL THREE TIMES A DAY NEEDED Comments: Last Taken:09/18/16 Time:10AM Oxcarbazepine (Oxcarbazepine) 300 MG TABLET 2 Tablet ORAL TWICE DAILY Comments: Last Taken:09/18/16 Time:10AM Gabapentin (Gabapentin) 300 MG CAPSULE 1 Capsule ORAL THREE TIMES DAILY Comments: Last Taken:09/18/16 Time:10AM Oxycodone HCl/Acetaminophen (Oxycodone-Acetaminophen 5-325) 5 MG-325 MG TABLET 1 Tablet ORAL 4 times daily as needed Comments: NOT GIVEN IN THE HOSPITAL Copies To: CAMMY CRUZ,BRYSON HARRISON MD,SALINA Gutierrez JR; TAVO MALIK MD
[2016-09-17 16:00] VITALS: BP 100/52
[2016-09-17 22:12] VITALS: BP 130/76
--- NOTE | 2016-09-17 23:08 | NUR ---
Alert and Oriented x 3. Oxygen d/c'd, 97% on RA. NSR on onitor. Denies pain. LCW pacer. Dressing to lcw cdi, small mount of S.S drainage. Possible d/c tomm. Will continue to monitor.
--- NOTE | 2016-09-18 04:03 | NUR ---
PT AWAKE AND ALERT, ORIENTED TO PLACE. DENIES PAIN AT RHIS TIME. NSR/PACED AT TIMES. [id number]% ON 2L O2. PT REMOVES O2 AT TIMES. PT REMINDED TO KEEP IT ON.
--- NOTE | 2016-09-18 04:12 | NUR ---
PT EASILY AROUSABLE. DENIES PAIN AT THIS TIME. SATURATION 95% ON RA, LUNGS SOUND CLEAR. SB 40'S, PM KICKED IN. BUT WHEN SHE WOKE UP AND HEART RATE WAS IN THE 60'S, PM NOT ON ANYMORE.
--- NOTE | 2016-09-18 07:11 | PN- Housestaff ---
BROOKLYNN CRUZ,[facility] 09/18/16 0710: Subjective Follow-up For: 1. s/p pacemaker, to be discharged today 2. hyponatremia 3. left lung mass, will undergo bronchoscopy after discharge Subjective: I saw and examined the patient at bedside today, she is alert and awake in no distress, waiting to go home. Had a good night sleep and has no complaints. denies any dizziness, palpitation, SOB, chest pain, abdominal pain. does not have any pain at the site of the pacemaker. Review of Systems Constitutional: Denies: chills, fever. EENTM: Reports: no symptoms. Cardiovascular: Denies: chest pain, palpitations, peripheral edema. Respiratory: Denies: cough, short of breath. Gastrointestinal: Reports: no symptoms (has not has BM since admission). Genitourinary: Reports: no symptoms. Musculoskeletal: Reports: no symptoms. Skin: Reports: no symptoms. Neurological/Psychological: Reports: no symptoms. Objective Last 24 Hrs of Vital Signs/I&O Vital Signs Date Time Temp Pulse Resp B/P B/P Pulse O2 O2 Flow FiO2 Mean Ox Delivery Rate 09/18 0800 93 Room Air Room Air 09/18 0800 97.8 63 20 120/70 93 Room Air Room Air 05/ 0000 98 Room Air / 2212 97.5 70 20 130/76 97 Room Air / 1600 97.5 59 18 100/52 98 Nasal 2.0L Cannula 09/17 1600 98 Nasal 2.0L Cannula Intake & Output / 1600 05/05 0800 05/05 0000 Intake Total 100 60 Output Total 260 Balance 100 -200 Intake, Oral 100 60 Output, Urine 260 Physical Exam General Appearance: Alert, Oriented X3, Cooperative, No Acute Distress Skin: No Significant Lesion Skin Temp/Moisture Exam: Warm/Dry Sepsis Skin Exam (color): Normal for Ethnicity HEENT: Atraumatic, EOMI Neck: Supple Cardiovascular: Regular Rate, Normal S1, Normal S2, No Murmurs Lungs: Clear to Auscultation, Normal Air Movement Abdomen: Soft, No Tenderness Neurological: Normal Speech, Strength at 5/5 X4 Ext, Normal Tone Extremities: No Edema, Normal Pulses Vascular: Pulses Symmetrical Assessment/Plan Assessment: Patient is a 76-year-old -[place]uxembour[place] female with PMH of TGN, meningioma s/p post gamma knife ablation at [facility], 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 Harrison who came for bronchoscopy/lymph node biopsy and was found to have nonspecific EKG changes and is admitted to telemetry for cardiac monitoring (physically in the ICU as tele hold). Problem list and plan: Bradycardia and EKG changes, s/p pacemaker placement, day2 no events overnight, interrogation was negative yesterday. Asymptomatic. * ok to be discharged from cardiac stand point, will follow up with Dr. Finley in a week Hyponatremia most likely SIADH, in the setting of an underlying carcinoma or taking Oxcarbazepine * BEP this am has improved off IV fluids and on fluid restriction of 1000 cc * check BEP in a week and follow up with PCP Right upper lobe lung mass Biopsy consistent with adenocarcinoma * Patient will undergo bronchoscopy by Dr. Harrison after discharge History of severe trigeminal neuralgia * Gabapentin 300 mg TID * clonazepam 0.5 mg TID * Ox-carbamazepine 600 mg BID (may need to modified due to hyponatremia) Heart healthy diet DVT prophylaxis with ALPS DNI/DNR Problem List: 1. Pacemaker 2. Trigeminal neuralgia 3. Hyponatremia 4. Lung cancer Pain Ratin Pain Location: no pain Pain Goal: Pain 4 or less Pain Plan: tylenol, ibuprofen, dilaudid for mild, mod, severe pain pathways respectively if needed Tomorrow's Labs & Rationales: no labs VICTOR M CRUZ,ISMAEL 09/18/16 1111: Attending MD Review Statement Attending Statement Attending MD Statement: examined this patient, discuss w/resident/PA/VENETIAN BLIND MECHANIC, agreed w/resident/PA/VENETIAN BLIND MECHANIC, reviewed EMR data (avail), discussed with nursing, discussed with case mgmt, reviewed images, amended to note Attending Assessment/Plan: Patient seen and examined, feels much better. At no acute events. Sodium level has improved. Heart rate and blood pressure remained stable. Patient is medically stable for discharge and will follow with her primary care doctor, Dr. Christy Finley as an outpatient. on some fluid restriction with a follow -up BEP in one week. Please fax those results to Dr. Burns.
[2016-09-18 08:00] VITALS: BP 120/70
--- NOTE | 2016-09-18 12:39 | PN- Cardiology ---
Subjective Subjective: The patient feels well today.. She is dressed and sitting in the chair pending discharge. Review of the special duty nurse shows at least one episode when the patient's heart rate appears to dip into the 30s with no pacemaker activation noted. I spoke with the [employer] telemarketing sales representative. He will be here shortly to recheck the device prior to the patient's discharge. Objective Vital Signs and I&Os Vital Signs Date Time Temp Pulse Resp B/P B/P Pulse O2 O2 Flow FiO2 Mean Ox Delivery Rate 09/19 799 93 Room Air Room Air 09/19 799 97.8 63 20 120/70 93 Room Air Room Air 09/18 0000 98 Room Air 09/17 2212 97.5 70 20 130/76 97 Room Air 09/17 1600 97.5 59 18 100/52 98 Nasal 2.0L Cannula 09/18 1599 98 Nasal 2.0L Cannula Intake & Output 09/18 0000 09/17 1600 09/17 0800 09/17 0000 Intake Total 100 60 880 547 420 Output Total 260 700 350 200 Balance 100 -200 180 197 220 Intake, IV 400 547 300 Intake, Oral 100 60 480 120 Output, Urine 260 700 350 200 Patient 162 lb Weight Physical Exam: General Appearance: Alert, Oriented X3, Cooperative, No Acute Distress Skin: Normal Skin Temp/Moisture Exam: Warm/Dry Sepsis Skin Exam (color): Normal for Ethnicity HEENT: Normal Neck: Supple, No JVD, carotids normal bilaterally Cardiovascular: Regular Rate, Normal S1, Normal S2, 1/6 systolic murmur Lungs: Clear to Auscultation, Normal Air Movement Abdomen: Soft, No Tenderness Neurological: Normal/nonfocal Extremities: No Edema, Normal Pulses Vascular: Pulses Symmetrical Current Medications: Current Medications Sig/Frances Start time Last Medication Dose Route Stop Time Status Admin Acetaminophen 650 MG Q4P PRN 09/16 1900 AC PO Clonazepam 0.5 MG TID 09/15 1599 AC 09/18 PO 09/21 1559 0945 Gabapentin 300 MG TID 09/14 1600 AC 09/18 PO 0945 Hydromorphone HCl 0.4 MG Q4P PRN 09/16 1900 AC IV Ibuprofen 400 MG Q6P PRN 09/16 1900 AC 09/17 PO 1705 Magnesium Oxide 400 MG DAILY 09/18 1000 AC 09/18 PO 0945 Oxcarbazepine 600 MG BID 09/14 1255 AC 09/18 PO 0945 Senna/Docusate Sodium 1 TAB ONCE ONE 09/18 0830 DC 09/18 PO 09/18 0931 1109 Trimethobenzamide HCl 200 MG TID PRN 09/15 1115 AC 09/15 IM 1339 Results Last 48 Hrs of Labs/Mics: Laboratory Tests 09/18/16 0342: Anion Gap 5, Estimated GFR > 60, BUN/Creatinine Ratio 7.1, Magnesium 1.8 09/17/16 0343: Anion Gap 7, Estimated GFR > 60, BUN/Creatinine Ratio 5.7 L, Magnesium 1.8, CBC w Diff NO MAN DIFF REQ, RBC 3.56 L, MCV 86.2, MCH 29.2, RDW 14.9 H, MPV 8.2, Gran % 60.2, Lymphocytes % 19.7 L, Monocytes % 13.9 H, Eosinophils % 5.7 H, Basophils % 0.5, Absolute Granulocytes 2.6, Absolute Lymphocytes 0.8 L, Absolute Monocytes 0.6, Absolute Eosinophils 0.2, Absolute Basophils 0, PUBS MCHC 33.8 09/16/16 1650: Anion Gap 7, Estimated GFR > 60, BUN/Creatinine Ratio 5.7 L Assessment/Plan Assessment/Plan Assessment: 1. Junctional bradycardia, with heart rate in the 40s. Likely symptomatic with lethargy and lightheadedness. Now status post permanent pacemaker 2. Lung mass, planned for biopsy 3. Anemia 4. Hyponatremia Recommendations: -Continue current medical management -The patient is feeling fine and pending discharge today. -Review of the special duty nurse shows brief episodes of low heart rate with no obvious pacemaker activation. The pacemaker telemarketing sales representative will reinterrogate the patient's device prior to discharge. Assuming everything is fine, the patient can be discharged home for follow-up with Dr. Finley is a outpatient.
[2016-10-20] MEDS ORDERED: PROTONIX40 M3 PO (13:18)
[2016-10-20] MEDS ORDERED: LOVENOX40 MG/0.1 SC (13:19)
[2016-10-20] MEDS ORDERED: OXYCODONE HCL15 M1 PO (13:19)
[2016-11-04] MEDS ORDERED: CLONAZEPAM0.5 M2 PO (13:34)
[2016-11-04] MEDS ORDERED: OXCARBAZEPINE300 M1 PO (13:34)
[2016-11-04] MEDS ORDERED: GABAPENTIN300 M2 PO (13:35)
[2016-11-04] MEDS ORDERED: MELOXICAM15 M1 PO (13:36)
[2016-11-04] MEDS ORDERED: DULCOLAX5 M1 PO (13:37)
[2016-11-04] MEDS ORDERED: SENNA8.6 M3 PO (13:38)
== END 2016-09-18 14:05 | disposition home health service (06) | DRG 243 ==
LOC: STS 08:33 → PACUH 12:20 → CRI 12:20
PROVIDERS: Internal Medicine; Ophthalmology; ADMIT Hospitalist
PROC: 0JH606Z Insertion of Pacemaker, Dual Chamber into Chest Subcutaneous Tissue and Fascia, Open Approach (ICD-10-PCS; principal; 2016-09-16)
PROC: 02H63JZ Insertion of Pacemaker Lead into Right Atrium, Percutaneous Approach (ICD-10-PCS; principal; 2016-09-16)
PROC: 02HK3JZ Insertion of Pacemaker Lead into Right Ventricle, Percutaneous Approach (ICD-10-PCS; principal; 2016-09-16)
DX: I49.5 Sick sinus syndrome (principal); E22.2 Syndrome of inappropriate secretion of antidiuretic hormone; E86.0 Dehydration; C34.11 Malignant neoplasm of upper lobe, right bronchus or lung; D64.9 Anemia, unspecified; G50.0 Trigeminal neuralgia; Z87.891 Personal history of nicotine dependence; Z66 Do not resuscitate
CPT/HCPCS: 84133; 84300; CCU; 36415; 82436; 82570; 93005; 93010; 93306; 97161-GP; 97530-GO; C1785; C1898; J0131; J0690; J1170; J1644; J1650; J3250; J7042

== ENCOUNTER → 2016-10-21 | Day surgery (SDC) | payer OTHER ==
[~2016-10-21] VITALS: Ht 177.8 cm; Wt 73.5 kg
[~2016-10-21] MED LIST changes: +CITRATE OF MAG300 ML PO; +DULCOLAX5 M1 PO; +GOLYTELY PACKE1 EACH PO; +LOVENOX40 MG/0.1 SC; +MELOXICAM15 M1 PO; +OXYCODONE HCL15 M1 PO; +PROTONIX40 M3 PO; +SENNA8.6 M3 PO; +ZOFRAN4 M2 PO
--- NOTE | 2016-10-21 15:11 | Operative Report ---
Operative/Inv Procedure Report Surgery Date: 10/21/16 Name of Procedure: Bronchoscopy mediastinoscopy Pre-Operative Diagnosis: Right upper lobe lung cancer Post-Operative Diagnosis: Same Estimated Blood Loss: scant Surgeon/Plastic Manager: GOLD CRUZ,SALINA Gutierrez JR Anesthesia: general endotracheal tube Operative/Procedure Note Note: After placement of monitoring lines and induction of general anesthesia a fiberoptic bronchoscopy was done through the endotracheal tube. The endobronchial anatomy was normal. Examination into the segmental bronchi of the anterior segment of the right upper lobe showed no evidence of any tumor. There were no mucosal lesions noted on either side. The patient's neck and chest were then prepped with chlorhexidine scrub and draped in a sterile fashion. A small incision was made above the sternal notch and carried down to pretracheal fascia. The posterior mediastinum was entered easily with blunt dissection. The mediastinoscope was advanced to the subcarinal level. The right paratracheal lymph nodes that were seen on CT scan were directly encountered. Needle aspiration showed no vascular structure. The lymph nodes were biopsied and sent for permanent histology. Withdrawal into the upper mediastinum allowed for identification of the level II lymph nodes just at the brachiocephalic artery. These were also biopsied and sent for permanent histology. Hemostasis was achieved with electrocautery. The wound was closed in layers with deep Vicryl suture followed by running Vicryl subcuticular suture. The patient tolerated the procedure well and was brought to the recovery room awake and extubated in stable condition. CC: CAMMY CRUZ,RAYRAY; MIKAEL CRUZ,ABRIL MALIK MD,TAVO
--- NOTE | 2016-10-21 16:08 | RADIOLOGY REPORT ---
EXAMINATION: XR PORTABLE CHEST CLINICAL INFORMATION: Status post mediastinoscopy. COMPARISON: None. TECHNIQUE: Portable chest x-ray 10/20/2016 view of the chest was obtained. FINDINGS: Accounting for differences in portable technique, patient positioning and aeration of the lungs, portable AP view of the chest demonstrates no significant interval changes in the appearance of the chest. Redemonstrated is a mass within the right upper lobe, not significantly changed relative to the prior exam. Cardiac and mediastinal contours are stable. There is a left chest wall cardiac pacemaker with leads identified in the expected region of the right atrium and right ventricle. No pleural effusions or pneumothoraces are identified. Soft tissues appear unremarkable. There is no visible acute osseous abnormality. IMPRESSION: No acute pulmonary process. Unchanged mass within the right upper lobe. No pneumothoraces.
== END ==
LOC: STS 02:48
DX: C34.11 Malignant neoplasm of upper lobe, right bronchus or lung (principal); Z87.891 Personal history of nicotine dependence; I49.5 Sick sinus syndrome; J45.909 Unspecified asthma, uncomplicated; I10 Essential (primary) hypertension; Z95.0 Presence of cardiac pacemaker
CPT/HCPCS: 88305; J0690

== ENCOUNTER 2016-10-30 18:46 | Emergency (ER) | payer OTHER ==
[~2016-10-30] VITALS: Ht 177.8 cm; Wt 70.3 kg
[~2016-10-30 18:46] MED LIST changes: -CITRATE OF MAG300 ML PO; -DULCOLAX5 M1 PO; -GOLYTELY PACKE1 EACH PO; -MELOXICAM15 M1 PO; -SENNA8.6 M3 PO; -ZOFRAN4 M2 PO
--- NOTE | 2016-10-30 19:09 | ED GI/GU/ABDOMINAL COMPLAINT ---
History of Present Illness General Chief Complaint: General Adult Stated Complaint: NO B/M X 5 DAYS Source: patient Exam Limitations: no limitations Vital Signs & Intake/Output Vital Signs & Intake/Output Vital Signs Date Time Temp Pulse Resp B/P B/P Pulse O2 O2 Flow FiO2 Mean Ox Delivery Rate 10/30 2155 98.0 88 20 128/78 98 Room Air 10/30 1853 98.9 98 18 121/73 99 Room Air ED Intake and Output 10/31 0000 10/30 1200 Intake Total Output Total Balance Patient 155 lb Weight Weight Reported by Patient Measurement Method Allergies Coded Allergies: acetaminophen (From DARVOCET-N) (Intermediate, DIZZINESS, NAUSEA 09/14/16) propoxyphene (From DARVOCET-N) (Intermediate, DIZZINESS, NAUSEA 09/14/16) Reconcile Medications Clonazepam 0.5 MG TABLET 1 TAB PO TIDPRN ANXIETY (Reported) Enoxaparin Sodium (Lovenox) 40 MG/0.4 ML SYRINGE 150 MG SC DAILY ? (Reported) Gabapentin 300 MG CAPSULE 1 CAP PO TID NERVE PAIN (Reported) Magnesium Citrate (Citrate Of Magnesia) 300 ML SOLUTION 296 ML PO ONCE PRN CONSTIPATION Oxcarbazepine 300 MG TABLET 2 TAB PO BID NERVE PAIN (Reported) Oxycodone HCl 15 MG TABLET 1 TAB PO 4XDP PAIN (Reported) Oxycodone HCl/Acetaminophen (Oxycodone-Acetaminophen 5-325) 5 MG-325 MG TABLET 1 TAB PO 4XDP PAIN (Reported) Pantoprazole Sodium (Protonix) 40 MG TABLET.DR 1 TAB PO DAILY GERD (Reported) Peg 3350/Na Sulf,Bicarb,Cl/KCl (Golytely Packet) 227.1-21.5 POWD.PACK 1 PAC PO ONCE PRN CONSTIPATION MIX WITH 6-8 OZ OF WATER Triage Note: PT TO ED FOR "DISIMPACTION AND CONSTIPATION" PT REPORTING NO BM X 5 DAYS. DENIES VOMITING. Triage Nurses Notes Reviewed? yes ? N Is pt currently ? No Onset: Gradual Duration: constant Timing: recent history Quality/Severity: fullness, moderate Severity Numbers: 5 Radiation: no radiation HPI: Patient is a 76-year-old female with past medical history of trigeminal neuralgia and lung cancer and chronic pain WHO patient states that she has not had a bowel movement in 5 days and has localized rectal pain Patient can tolerate by mouth however due to her past medical history is been decreased. Denies any fever chills nausea vomiting or abdominal pain Patient does state that Dr. STINSON next week will be performing a lobectomy removal of the carcinoma Patient denies any shortness of breath chest pain back pain (RILEY GALINDO) Past History Travel History Traveled to [place] past 21 day No Medical History Any Pertinent Medical History? 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 Hx Contributory? No (RILEY GALINDO) Review of Systems Review of Systems Constitutional: Reports: no symptoms. EENTM: Reports: no symptoms. Respiratory: Reports: no symptoms. Cardiovascular: Reports: no symptoms. GI: Reports: see HPI, constipation. Genitourinary: Reports: no symptoms. Musculoskeletal: Reports: no symptoms. Skin: Reports: no symptoms. Neurological/Psychological: Reports: no symptoms. Hematologic/Endocrine: Reports: no symptoms. Immunologic/Allergic: Reports: no symptoms. All Other Systems: Reviewed and Negative (RILEY GALINDO) Physical Exam Physical Exam General Appearance: no apparent distress, alert, comfortable Gastrointestinal: normal bowel sounds, soft, non-tender, no organomegaly Comments: Well-developed well-nourished person in no acute distress HEENT: Normal EENT exam, Neck: Supple, no lymphadenopathy, normal range of motion without pain or tenderness Back: Nontender, Abdomen: Soft, nontender nondistended, no appreciable organomegaly. Normal bowel sounds. No ascites Extremity: No edema, no calf tenderness to palpation, normal and equal pulses. Rectal normal inspection rectal tone intact no surrounding hemorrhoids no fluctuance no induration nontender- Neuro: Alert oriented x3, Skin: No appreciable rash on exposed skin, skin is warm and dry. Psych: Mood and affect is normal, memory and judgment is normal. Core Measures ACS in differential dx? No Severe Sepsis Present: No Septic Shock Present: No (WINDY RUBI,RILEY) Progress Differential Diagnosis: AAA, AMI, appendicitis, biliary colic, bowel obstruction , colon cancer, cholecystitis, diverticulitis, endometritis, esophageal varices, gastritis, hepatitis, hernia, hemorrhoids, ischemic bowel, inflamm bowel dis, kidney stone, pancreatitis, PID/cervicitis, perforated viscous, SBO, UTI/pyelo Plan of Care: Orders Procedure Date/time Status Enema 10/30 2057 Active Digital rectal exam was performed showing minimal small hard stool noted at distal tip of phalanges and which disimpaction was performed and noted minimal fecal disimpaction. Patient requested to cease the disimpaction in which a soap enema will not be performed. X-ray show no concerns of obstruction or significant fecal impaction Soap enema was administered patient where she had moderate amounts of bowel production. Again patient has nontender abdomen and no signs of obstruction. Patient will be given medications for bowel promotion of stool softener laxatives. Upon discharge patient looks well no apparent distress. Discussed disposition plan with [facility] (WINDY RUBI,RILEY) Diagnostic Imaging: Viewed by Me: Radiology Read. Radiology Impression: SEE COMMENTS Initial ED EKG: none Comments: PATIENT: SIMI MACIAS PRESENT AGE: 76 PATIENT ACCOUNT NO: [id number] : 39 LOCATION: [facility] ORDERING PHYSICIAN: RILEY RUBI SERVICE DATE: 10/30/16 EXAM TYPE: RAD - [id number] VIEW EXAMINATION: XR ABDOMEN CLINICAL INDICATION: No bowel movement and 5 days. Evaluate for small bowel obstruction. COMPARISON: CT abdomen and pelvis 01/16/2011. TECHNIQUE: Supine AP view of the abdomen. FINDINGS: There is a minimal amount of retained stool throughout the colon. Otherwise, nonspecific bowel gas pattern, without findings indicative of small bowel obstruction or ileus. No visible abnormal soft tissue calcifications. The included bilateral lung bases appear to be grossly clear. There are air-filled loops of bowel within the left upper quadrant of the abdomen as well as within the right lower quadrant of the abdomen. No acute osseous abnormality is identified. There are moderate multilevel degenerative changes of the imaged lumbar spine. IMPRESSION: A minimal amount of retained stool. Otherwise, nonspecific bowel gas pattern, without findings indicative of small bowel obstruction or ileus. (RILEY GALINDO) Departure Departure Disposition: HOME OR SELF CARE Condition: Stable Clinical Impression Primary Impression: Constipation Referrals: CAMMY CRUZ,RAYRAY (PCP/Family) CHRISTIN CRUZ,CLAUDIO Mims Additional Instructions: As discussed continue home medications as directed. If symptoms worsen or if you develop new concerning symptom return to emergency room immediately. Begin [id number] DOCULSATE for stool softener. Begin the prescription of magnesium citrate for bowel production and begin the prescription of GoLYTELY for breakthrough bowel production medications. Prescriptions waiting a [facility] If no better on Wednesday follow-up with primary care doctor/and pr specialist Dr. WALLER Departure Forms: Customer Survey General Discharge Information Prescriptions: Current Visit Scripts Magnesium Citrate (Citrate Of Magnesia) 296 ML PO ONCE PRN CONSTIPATION #296 ML Ref 1 Peg 3350/Na Sulf,Bicarb,Cl/KCl (Golytely Packet) 1 PAC PO ONCE PRN CONSTIPATION #1 BOT MIX WITH 6-8 OZ OF WATER (RILEY GALINDO) PA/STOCKROOM ASSOCIATE Co-Sign Statement Statement: ED Attending supervision documentation- [] I saw and evaluated the patient. I have also reviewed all the pertinent lab results and diagnostic results. I agree with the findings and the plan of care as documented in the PA's/STOCKROOM ASSOCIATE's documentation. [x] I have reviewed the ED Record and agree with the PA's/STOCKROOM ASSOCIATE's documentation. [] Additions or exceptions (if any) to the PAs/STOCKROOM ASSOCIATE's note and plan are summarized below: [] (FRANDY CRUZ,ANDRÉS Aceves)
--- NOTE | 2016-10-30 20:24 | RADIOLOGY REPORT ---
EXAMINATION: XR ABDOMEN CLINICAL INDICATION: No bowel movement and 5 days. Evaluate for small bowel obstruction. COMPARISON: CT abdomen and pelvis 01/16/2011. TECHNIQUE: Supine AP view of the abdomen. FINDINGS: There is a minimal amount of retained stool throughout the colon. Otherwise, nonspecific bowel gas pattern, without findings indicative of small bowel obstruction or ileus. No visible abnormal soft tissue calcifications. The included bilateral lung bases appear to be grossly clear. There are air-filled loops of bowel within the left upper quadrant of the abdomen as well as within the right lower quadrant of the abdomen. No acute osseous abnormality is identified. There are moderate multilevel degenerative changes of the imaged lumbar spine. IMPRESSION: A minimal amount of retained stool. Otherwise, nonspecific bowel gas pattern, without findings indicative of small bowel obstruction or ileus.
[2016-10-30] MEDS ORDERED: CITRATE OF MAG300 ML PO (21:54)
[2016-10-30] MEDS ORDERED: GOLYTELY PACKE1 EACH PO (21:54)
[2016-10-30 21:55] VITALS: BP 128/78
[2016-11-04] MEDS ORDERED: CLONAZEPAM0.5 M2 PO (13:34)
[2016-11-04] MEDS ORDERED: OXCARBAZEPINE300 M1 PO (13:34)
[2016-11-04] MEDS ORDERED: GABAPENTIN300 M2 PO (13:35)
[2016-11-04] MEDS ORDERED: MELOXICAM15 M1 PO (13:36)
[2016-11-04] MEDS ORDERED: DULCOLAX5 M1 PO (13:37)
[2016-11-04] MEDS ORDERED: SENNA8.6 M3 PO (13:38)
== END 2016-10-30 22:30 ==
LOC: ERH 18:46
DX: K59.00 Constipation, unspecified (principal)
CPT/HCPCS: 74000

== ENCOUNTER 2016-11-05 01:12 | Inpatient (IN) | payer OTHER ==
[~2016-11-05] VITALS: Ht 177.8 cm; Wt 72.6 kg
[~2016-11-05 01:12] MED LIST changes: +CITRATE OF MAG300 ML PO; +DULCOLAX5 M1 PO; +GOLYTELY PACKE1 EACH PO; +MELOXICAM15 M1 PO; +SENNA8.6 M3 PO
[2016-11-05] MEDS ORDERED: ZOFRAN4 M2 PO (10:45)
--- NOTE | 2016-11-05 15:42 | RADIOLOGY REPORT ---
EXAMINATION: XR PORTABLE CHEST CLINICAL INFORMATION: Status post right upper lobe lobectomy. COMPARISON: Chest x-ray 10/29/2016. TECHNIQUE: Portable frontal view of the chest was obtained. 3:19 PM FINDINGS: There is been right upper lobe lobectomy. Surgical sutures in the right hilum. There is 2 right-sided chest tubes present. No pneumothorax. There is subcutaneous emphysema in the right axilla. No midline shift. Heart size is normal. No change in position of dual pacemaker leads in right atrium and right ventricle. There is mild central vascular prominence with low inspiratory effort. IMPRESSION: Status post right upper lobe lobectomy. 2 right-sided chest tubes. No pneumothorax. Right-sided axillary subcutaneous emphysema. Low inspiratory effort with mild central vascular pulmonary prominence accentuated by low inspiratory effort. Pacemaker.
--- NOTE | 2016-11-05 16:30 | Admission Certification ---
Admission Certification Certification Statement - As attending physician, I certify that at the time of - admission, based on clinical presentation, severity of - symptoms, need for further diagnostic testing and - therapeutic interventions, and risk of adverse outcomes - without in-hospital treatment, in my clinical assessment, - this patient requires an acute hospital stay for a minimum - of two nights or longer. I have also considered psychsocial - factors such as support system, advanced age, financial - issues, cognitive issues, and failed out-patient treatments, - past re-admission history, safety of patient, and lack of - compliance as applicable. Specific rationale supporting this admission is: Major Chest surgery with intensive care unit stay
--- NOTE | 2016-11-05 16:34 | Operative Report ---
Operative/Inv Procedure Report Surgery Date: 11/05/16 Name of Procedure: Right upper lobectomy. Mediastinal lymph node dissection Pre-Operative Diagnosis: Right upper lobe lung cancer Post-Operative Diagnosis: Same Estimated Blood Loss: less than 50ml Surgeon/Compliance Professional: GOLD CRUZ,SALINA Doty Anesthesia: general endotracheal tube Operative/Procedure Note Note: After placement of monitoring lines and induction of general anesthesia the double-lumen endotracheal tube was properly positioned with fiberoptic bronchoscopy. The patient was placed in the left lateral decubitus position and her right chest was prepped and draped in a sterile fashion. A standard posterolateral thoracotomy incision was made and the chest was entered in the fifth intercostal space. There were some soft adhesions of the upper lobe to the apex and these were taken down with electrocautery. Mobilization of the lung identified the tumor in the right upper lobe with no evidence of contraindications to resection. The pleural reflection along the hilum was mobilized and the apical anterior branch was secured with the Endo HARDEEP vascular stapler. This allowed identification and stapling of the pulmonary vein drainage of the right upper lobe once again with the Endo HARDEEP vascular stapler. Dissection was then done at the base of the fissure and the pulmonary artery was identified and the branches to the middle and lower lobe were preserved. The major and minor fissure were then completed with the Endo HARDEEP stapler and there was one further pulmonary arterial branch to the upper lobe at the base that was resected with the vascular stapler. There were parabronchial lymph nodes that were brought into the specimen and the right upper lobe bronchus was then secured with the TA 55 stapler. Intraoperative frozen section disclose no evidence of cancer at the bronchial margin. Lymph nodes were removed from level for level VII and level IX sent for permanent histology. The bronchial stump was insufflated under water to 30 mmHg and was found to be airtight. The cut surfaces of the lung were sprayed with sealant and hemostasis was achieved with electrocautery and with Surgicel packing. The chest was drained with a straight and angled 28 [place] chest tube. Long- acting rib blocks were placed posteriorly. The ribs were reapproximated with pericostal suture and the incision was closed anatomically with running Vicryl suture. The lung was reinsufflated under direct vision. The skin edges were approximated with subcuticular suture. The patient tolerated the procedure well and was brought to the recovery room awake and extubated in stable condition. CC: CAMMY CRUZ,RAYRAY; MIKAEL CRUZ,KAIDEN; HELENA CRUZ,TAVO
[2016-11-05 18:00] VITALS: BP 122/68; BP 168/76
[2016-11-05 20:00] VITALS: BP 102/50
--- NOTE | 2016-11-05 20:43 | PN- Thoracic Surgery ---
Subjective Subjective: The patient was seen this evening. She reports that her pain is under adequate control and that she feels very tired. She denies any true chest pain aside from the area around her chest tubes. She denies any difficulty breathing and has no other complaints at the current time. Objective Vital Signs and I&Os Vital Signs Date Time Temp Pulse Resp B/P B/P Pulse O2 O2 Flow FiO2 Mean Ox Delivery Rate 11/06 1999 99.8 73 16 102/50 11/06 1999 96 Nasal 2.0L Cannula 11/05 1799 99.2 82 12 168/76 11/05 1799 98 Nasal 2.0L Cannula 11/05 1799 99.2 78 16 122/68 98 Nasal 2.0L Cannula Postoperative EKG shows a paced rhythm with no acute changes. Postoperative chest x-ray shows no pneumothorax and 2 right-sided chest tubes in adequate position. Physical Exam: Gen.: Alert and in no obvious distress Skin: Warm and dry Chest: Equal expansion, surgical dressing is blood-tinged but otherwise intact. There [address] neck itself Pleur-evac and suction. The anterior chest tube has a small air leak Cardiac: S1-S2 regular Pulmonary: Bilateral breath sounds are equal, decreased at bases, transmitted chest tube sounds in the right chest Extremities: Bilateral lower extremities are warm without calf tenderness or significant edema. Assessment/Plan Assessment/Plan Assessment: 76 old female status post right upper lobectomy. Postoperatively patient is progressing as expected, her pain is under adequate control, she is saturating adequately on minimal O2 requirements. Plan: Continue current pain regiment Follow-up morning chest x-ray and laboratory studies Total respiratory care per postthoracotomy protocol Strict I's and O's GI and DVT prophylaxis Keep chest tubes to suction Resume home medications Out of bed to chair in the morning 2 doses of postoperative prophylactic antibiotics Liquid diet tonight advance to regular diet in the morning Follow up pulmonary critical care consultation recommendations Core Measures/Miscellaneous Galvez Catheter Date In: 11/05/16 Still Needed? Yes Venous Thromboembolism VTE Risk Factors: Age > 40, Cancer/chemo/oth therapy, Surgery VTE Contraindications: No Contraindications VTE Diagnosis: No Beta Nkechi Is Beta Nkechi a Home Med? No Antibiotics Is Patient on Antibiotics? Yes If Yes: prophylaxis
[2016-11-05 21:00] VITALS: BP 110/70
[2016-11-05 22:00] VITALS: BP 119/59; BP 94/52
[2016-11-06] VITALS (10 sets, daily range): BP systolic 100–152; BP diastolic 50–76
[2016-11-06 04:58] LABS: ABSOLUTE BASOPHIL COUNT 0 /CUMM (0.0-0.2); ABSOLUTE EOSINOPHIL COUNT 0.1 /CUMM (0.0-0.7); ABSOLUTE LYMPH COUNT 0.8 /CUMM (1.2-3.4); ABSOLUTE MONOCYTE COUNT 0.6 /CUMM (0.10-0.60); BASOPHIL % 0.3 % (0.0-2.0); EOSINOPHIL % 1.2 % (0-5); HEMATOCRIT 34.8 % (37-47); MEAN CORPUSCULAR HGB 29.1 PG (27.0-31.0); MEAN CORPUSCULAR HGB CONC 33.8 G/DL (33.0-37.0); MEAN CORPUSCULAR VOLUME 86.3 FL (81.0-99.0); MEAN PLATELET VOLUME 7.5 FL (7.4-10.4); PLATELET COUNT 305 /CUMM (130-400); RBC DISTRIBUTION WIDTH 13.7 % (11.5-14.5); RED BLOOD CELL CT 4.03 /CUMM (4.20-5.40); WHITE BLOOD CELL COUNT 7.5 /CUMM (4.8-10.8)
[2016-11-06 05:10] LABS: GRANULOCYTE % 79.8 % (42.2-75.2)
--- NOTE | 2016-11-06 05:52 | PN- Thoracic Surgery ---
See Addendum Subjective Subjective: The patient was seen this morning postoperatively day #1. She reports that her surgical pain is adequately controlled with the ENROBING MACHINE OPERATOR however her trigeminal neuralgia is acting up and the ENROBING MACHINE OPERATOR does not help. She had no other complaints at the current time and denied any true chest pain, opticians, or difficulty breathing. Objective Vital Signs and I&Os Vital Signs Date Time Temp Pulse Resp B/P B/P Pulse O2 O2 Flow FiO2 Mean Ox Delivery Rate 11/06 0400 97.1 84 16 110/70 11/06 0400 97 Nasal 2.0L Cannula 11/06 0200 73 16 100/60 11/06 0200 73 16 100/60 97 Nasal 2.0L Cannula 11/06 0052 97 Nasal 2.0L Cannula 11/06 0000 98.2 73 16 100/50 98 Nasal 2.0L Cannula 11/06 0000 98 Nasal 2.0L Cannula 11/05 2200 Nasal 2.0L Cannula 11/05 2200 76 16 119/59 11/05 2200 76 16 94/52 97 Nasal 2.0L Cannula 11/05 2100 72 16 110/70 11/06 1999 99.8 73 16 102/50 11/06 1999 99.8 73 16 102/50 96 Nasal 2.0L Cannula 11/06 1999 96 Nasal 2.0L Cannula 11/05 1800 99.2 82 12 168/76 11/05 1800 98 Nasal 2.0L Cannula 11/05 1800 99.2 78 16 122/68 98 Nasal 2.0L Cannula Intake & Output 11/06 0800 11/06 0000 11/05 1600 11/05 0800 11/05 0000 11/04 1600 Intake Total 373 Output Total 434 Balance -61 Intake, IV 373 Output, Chest 305 Tube Drainage Output, Urine 129 Patient 160 lb Weight Weight Reported by Patient Measurement Method Physical Exam: Gen.: Alert and in no obvious distress Skin: Warm and dry Chest: Appropriate incisional tenderness, equal expansion, dressing is slightly bloody but otherwise intact. 2 chest tubes are in place connected to Pleur-evac and wall suction. There is a small air leak in the anterior chest tube. Cardiac: S1 and S2 regular Pulmonary: Bilateral breath sounds are equal and decreased at bases with transmitted chest tube noises in the right chest Extremities: Bilateral lower extremities are warm without calf tenderness or significant edema. Assessment/Plan Assessment/Plan Assessment: 76-year-old female is post right upper lobectomy stop operative day #1 the patient is progressing as expected and his surgical pain is adequately managed. Her trigeminal myalgia will require additionalPain management. The patient is oxygenating adequately on minimal O2 requirements Plan: Follow-up morning chest x-ray and laboratory studies Out of bed to chair Will medicate with IV Tylenol and's patient's gabapentin which she takes at home PRN for neuralgia Respiratory care per post recovery protocol wean O2 Strict I's and O's Advance diet to regular Continue current pain regiment GI and DVT prophylaxis Decrease IV fluids and Hep-Lock once tolerating a diet Keep chest tubes to suction with the possibility of removing the posterior tube today is done morning chest x-ray Follow up pulmonary/critical care consultation recommendations Core Measures/Miscellaneous Galvez Catheter Date In: 11/05/16 Venous Thromboembolism VTE Risk Factors: Age > 40, Cancer/chemo/oth therapy, Surgery VTE Contraindications: No Contraindications VTE Diagnosis: No Beta Nkechi Is Beta Nkechi a Home Med? No Antibiotics Is Patient on Antibiotics? No
--- NOTE | 2016-11-06 07:31 | RADIOLOGY REPORT ---
EXAMINATION: XR PORTABLE CHEST CLINICAL INFORMATION: Right upper lobectomy. Evaluate for pneumothorax. COMPARISON: 11/05/2016. TECHNIQUE: Portable frontal view of the chest was obtained. FINDINGS: Trace right apical pneumothorax. Two thoracostomy tubes in place. Surgical staple line along the medial upper right lung. The left lung is hypoexpanded. 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 Cardiac silhouette is stable. Left subclavian dual-lead pacemaker. IMPRESSION: Trace right apical pneumothorax.
--- NOTE | 2016-11-06 08:15 | Cons- CRCU ---
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 Patient has a long history of uncontrolled pain secondary to trigeminal neuralgia. Her pain became fairly controlled after she was started recently on the new regimen. At home patient is taking oxcarbazepine 300 at 6 am, 1 pm and 600 mg at bed time, she is also taking Cabapentin 300 mg TID and Lidocaine solution 2%. Pain improved after she was restarted on her home meds. Allergies/Medications Allergies: Coded Allergies: No Known Allergies (11/05/16) Home Med List: Bisacodyl (Dulcolax) 5 MG TABLET.DR 1 TAB PO LAXATIVE (Reported) Clonazepam 0.5 MG TABLET 1 TAB PO TID ANXIETY (Reported) Enoxaparin Sodium (Lovenox) 40 MG/0.4 ML SYRINGE 150 MG SC DAILY ? (Reported) Gabapentin 300 MG CAPSULE 1 TAB PO TID PAIN (Reported) Meloxicam 15 MG TABLET 1 TAB PO D PAIN (Reported) Ondansetron HCl (Zofran) 4 MG TABLET NAUSEA (Reported) Oxcarbazepine 300 MG TABLET 1 TAB PO DAILY NEURLAGIA (Reported) Oxycodone HCl 15 MG TABLET 1 TAB PO 4XDP PAIN (Reported) Pantoprazole Sodium (Protonix) 40 MG TABLET.DR 1 TAB PO DAILY GERD (Reported) Sennosides (Senna) 8.6 MG TABLET 1 TAB PO PRN N (Reported) Review of Systems Review of Systems Constitutional: Denies: chills, diaphoresis, fever, weakness. EENTM: Reports: see HPI. Cardiovascular: Denies: chest pain, orthopena, palpitations, syncope. Respiratory: Denies: cough, short of breath, wheezing. GI: Denies: abdominal pain, bloating, constipation, diarrhea. Genitourinary: Denies: dysuria. 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 Psychosocial History Where Do You Live? Home Who Do You Live With? child Services at Home: None Primary Language: St Helen[place] Smoking Status: Former Smoker Functional Ability ADLs Needs Assist: dressing, eating, toileting, bathing. Ambulation: walker IADLs Needs Assist: shopping, housework, finances, food prep, telephone, transportation, medication admin. Exam & Diagnostic Data Last 24 Hrs of Vital Signs/I&O Vital Signs Date Time Temp Pulse Resp B/P B/P Pulse O2 O2 Flow FiO2 Mean Ox Delivery Rate 11/06 0600 80 16 124/59 11/06 0400 97.1 84 16 110/70 11/06 0400 97.1 84 16 110/70 97 Nasal 2.0L Cannula 11/06 0400 97 Nasal 2.0L Cannula 11/06 0200 73 16 100/60 11/06 0200 73 16 100/60 97 Nasal 2.0L Cannula 11/06 0052 97 Nasal 2.0L Cannula 11/06 0000 98.2 73 16 100/50 11/06 0000 98.2 73 16 100/50 98 Nasal 2.0L Cannula 11/06 0000 98 Nasal 2.0L Cannula 11/05 2200 Nasal 2.0L Cannula 11/05 2200 76 16 119/59 11/05 2200 76 16 94/52 97 Nasal 2.0L Cannula 11/05 2100 72 16 110/70 11/06 1999 99.8 73 16 102/50 11/06 1999 99.8 73 16 102/50 96 Nasal 2.0L Cannula 11/06 1999 96 Nasal 2.0L Cannula 11/05 1800 99.2 82 12 168/76 11/05 1800 98 Nasal 2.0L Cannula 11/05 1800 99.2 78 16 122/68 98 Nasal 2.0L Cannula Intake & Output 11/06 1600 11/06 0800 11/06 0000 Intake Total 925 373 Output Total 509 434 Balance 416 -61 Intake, IV 725 373 Intake, Oral 200 Output, Chest 227 305 Tube Drainage Output, Urine 282 129 Patient 72.575 kg Weight Weight Reported by Patient Measurement Method Physical Exam General Appearance: well developed/nourished, alert, awake, anxious, moderate distress Head: atraumatic, normal appearance Respiratory: normal breath sounds, chest non-tender, no respiratory distress, quiet respiration Cardiovascular: regular rate/rhythm Gastrointestinal: soft, non-tender, no organomegaly Cranial Nerves: normal hearing, PERRL Last 48 Hrs of Labs/Km: Laboratory Tests 11/06/16 0400: Anion Gap 9, Estimated GFR > 60, BUN/Creatinine Ratio 11.4, Phosphorus 4.0, Magnesium 1.5 L, CBC w Diff NO MAN DIFF REQ, RBC 4.03 L, MCV 86.3, MCH 29.1, RDW 13.7, MPV 7.5, Gran % 79.8 H, Lymphocytes % 11.3 L, Monocytes % 7.4, Eosinophils % 1.2, Basophils % 0.3, Absolute Granulocytes 6.0, Absolute Lymphocytes 0.8 L, Absolute Monocytes 0.6, Absolute Eosinophils 0.1, Absolute Basophils 0, PUBS MCHC 33.8 Assessment/Plan Impression/Plan: 76-year-old -Colombian female with PMH of trigeminal neuralgia, brain meningioma status post gamma knife at [facility] and 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 #Right upper lobectomy POD #1 * Out of bed as possible * Wean off oxygen as possible * Pain management as needed * Chest tube in place, we will follow surgery recommendation. * And DVT prophylaxis at all times #Trigeminal neuralgia * Will make the gabapentin 300 3 times a day scheduled * We will increase oxcarbazepine to 300 mg as one tab at 6 am and 1 pm, and 2 tabs at bedtime. 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 Mark BAIN MD 11/06/16 0911: General Information and HPI Consulting Request Date of Consult: 11/06/16 Requested By: Dr. Harrison Reason for Consult: CRCU management Source of Information: patient, old records Exam Limitations: clinical condition Assessment/Plan Other Findings/Comments: I have personally seen and examined the patient, and agree with the resident's assessment and plan as detailed above. Briefly, the patient is a 76 year old female with a history significant for trigeminal neuralgia, brain meningioma status post gamma knife surgery, and right upper lobe adenocarcinoma status post lobectomy. The patient is awake and alert and doing well postoperatively. She has had ongoing difficulty with her trigeminal neuralgia pain noting that her medications were readjusting to her home meds. The patient currently has no air leak. She is doing well and offers no new complaints. We will continue all supportive care. Consult Acknowledgment - Thank you for your consult request.
[2016-11-07] VITALS (9 sets, daily range): BP systolic 90–110; BP diastolic 48–76
[2016-11-07 04:41] LABS: ABSOLUTE BASOPHIL COUNT 0 /CUMM (0.0-0.2); ABSOLUTE EOSINOPHIL COUNT 0.2 /CUMM (0.0-0.7); ABSOLUTE GRANULOCYTE CT 4.5 /CUMM (1.4-6.5); ABSOLUTE MONOCYTE COUNT 0.7 /CUMM (0.10-0.60); BASOPHIL % 0.5 % (0.0-2.0); EOSINOPHIL % 3.5 % (0-5); GRANULOCYTE % 69.6 % (42.2-75.2); HEMATOCRIT 37.3 % (37-47); MEAN CORPUSCULAR HGB 29.1 PG (27.0-31.0); MEAN CORPUSCULAR VOLUME 88.3 FL (81.0-99.0); MEAN PLATELET VOLUME 7.6 FL (7.4-10.4); PLATELET COUNT 276 /CUMM (130-400); RBC DISTRIBUTION WIDTH 14.1 % (11.5-14.5); RED BLOOD CELL CT 4.23 /CUMM (4.20-5.40); WHITE BLOOD CELL COUNT 6.5 /CUMM (4.8-10.8)
--- NOTE | 2016-11-07 06:14 | PN- Thoracic Surgery ---
Subjective Subjective: When I saw the patient last night, she was experiencing significant discomfort at the chest tube insertion site, despite use of Dilaudid SUPERINTENDENT STEVEDORING. She was also experiencing some jaw pain due to trigeminal neuralgia. She received a dose of IV APAP, which led to some relief and she subsequently slept well last night. She admits to soreness at chest tube insertion site today, but tolerable. Tolerating clears, but not much of an appetite as of yet. Denies shortness of breath. Objective Vital Signs and I&Os Vital Signs Date Time Temp Pulse Resp B/P B/P Pulse O2 O2 Flow FiO2 Mean Ox Delivery Rate 11/07 0400 98.1 84 16 110/76 11/07 0400 95 Room Air 11/07 0100 93 Room Air 11/07 0000 97.2 77 18 91/54 11/07 0000 97.2 77 18 96/60 92 Room Air 11/07 0000 93 Room Air 11/06 2000 97.4 87 24 120/70 11/06 2000 100 Room Air 11/06 1644 96 Room Air Room Air 11/06 1600 99.4 78 12 100/58 11/06 1600 94 Room Air Room Air 11/06 1600 99.4 78 16 100/58 95 Room Air Room Air 11/06 1400 97.7 84 20 152/68 11/06 1200 97.7 70 18 110/68 11/06 1200 95 Nasal 2.0L Cannula 11/06 1000 98.6 78 14 112/76 11/06 0820 98 Nasal 2.0L Cannula 11/06 0800 98.6 88 17 108/60 11/06 0800 98.6 88 17 108/60 94 Nasal 2.0L Cannula 11/06 0800 94 Nasal 2.0L Cannula Intake & Output 11/07 0800 24 0000 11/06 1600 11/06 0800 11/06 0000 11/05 1600 Intake Total 898 700 925 373 Output Total 990 1010 509 434 Balance -92 -310 416 -61 Intake, IV 598 500 725 373 Intake, Oral 300 200 200 Output, Chest 200 110 227 305 Tube Drainage Output, Urine 790 900 282 129 Patient 160 lb Weight Weight Reported by Patient Measurement Method Physical Exam: Gen.: Patient is resting, but arousable. No acute distress. Cardiac: Regular Pulmonary: Lungs are clear to the apices bilaterally. The right sided surgical dressing contains a moderate amount of bloody drainage, but is relatively unchanged according to the evening nurse last night. No air leak in the chest tube this morning. Output 200 mL last shift. Results Last 48 Hours of Labs: Laboratory Tests 11/07 11/06 0415 1645 Chemistry Sodium (137 - 145 mmol/L) 132 L Potassium (3.5 - 5.1 mmol/L) 4.3 Chloride (98 - 107 mmol/L) 99 Carbon Dioxide (22 - 30 mmol/L) 26 Anion Gap (5 - 16) 8 BUN (7 - 17 mg/dL) 6 L Creatinine (0.5 - 1.0 mg/dL) 0.7 Estimated GFR (>60 ml/min) > 60 BUN/Creatinine Ratio (7 - 25 %) 8.6 Hematology CBC w Diff NO MAN DIFF REQ WBC (4.8 - 10.8 /CUMM) 6.5 RBC (4.20 - 5.40 /CUMM) 4.23 Hgb (12.0 - 16.0 G/DL) 12.3 Hct (37 - 47 %) 37.3 MCV (81.0 - 99.0 FL) 88.3 MCH (27.0 - 31.0 PG) 29.1 RDW (11.5 - 14.5 %) 14.1 Plt Count (130 - 400 /CUMM) 276 MPV (7.4 - 10.4 FL) 7.6 Gran % (42.2 - 75.2 %) 69.6 Lymphocytes % (20.5 - 51.1 %) 15.7 L Monocytes % (1.7 - 9.3 %) 10.7 H Eosinophils % (0 - 5 %) 3.5 Basophils % (0.0 - 2.0 %) 0.5 Absolute Granulocytes (1.4 - 6.5 /CUMM) 4.5 Absolute Lymphocytes (1.2 - 3.4 /CUMM) 1.0 L Absolute Monocytes (0.10 - 0.60 /CUMM) 0.7 H Absolute Eosinophils (0.0 - 0.7 /CUMM) 0.2 Absolute Basophils (0.0 - 0.2 /CUMM) 0 PUBS MCHC (33.0 - 37.0 G/DL) 33.0 Urines Urine Osmolality (300 - 1000 MOSM/KG) 124 L 11/06 0400 Chemistry Sodium (137 - 145 mmol/L) 129 L Potassium (3.5 - 5.1 mmol/L) 3.4 L Chloride (98 - 107 mmol/L) 96 L Carbon Dioxide (22 - 30 mmol/L) 24 Anion Gap (5 - 16) 9 BUN (7 - 17 mg/dL) 8 Creatinine (0.5 - 1.0 mg/dL) 0.7 Estimated GFR (>60 ml/min) > 60 BUN/Creatinine Ratio (7 - 25 %) 11.4 Serum Osmolality (285 - 295 MOSM/KG) 269 L Phosphorus (2.5 - 4.5 mg/dL) 4.0 Magnesium (1.6 - 2.3 mg/dL) 1.5 L Hematology CBC w Diff NO MAN DIFF REQ WBC (4.8 - 10.8 /CUMM) 7.5 RBC (4.20 - 5.40 /CUMM) 4.03 L Hgb (12.0 - 16.0 G/DL) 11.7 L Hct (37 - 47 %) 34.8 L MCV (81.0 - 99.0 FL) 86.3 MCH (27.0 - 31.0 PG) 29.1 RDW (11.5 - 14.5 %) 13.7 Plt Count (130 - 400 /CUMM) 305 MPV (7.4 - 10.4 FL) 7.5 Gran % (42.2 - 75.2 %) 79.8 H Lymphocytes % (20.5 - 51.1 %) 11.3 L Monocytes % (1.7 - 9.3 %) 7.4 Eosinophils % (0 - 5 %) 1.2 Basophils % (0.0 - 2.0 %) 0.3 Absolute Granulocytes (1.4 - 6.5 /CUMM) 6.0 Absolute Lymphocytes (1.2 - 3.4 /CUMM) 0.8 L Absolute Monocytes (0.10 - 0.60 /CUMM) 0.6 Absolute Eosinophils (0.0 - 0.7 /CUMM) 0.1 Absolute Basophils (0.0 - 0.2 /CUMM) 0 PUBS MCHC (33.0 - 37.0 G/DL) 33.8 Assessment/Plan Assessment/Plan Patient is a 76-year-old female who is postoperative day #2, status post right upper lobectomy. The posterior chest tube was removed yesterday and the anterior chest tube remains in place. Pain levels are much improved this morning. Plan: -Chest x-ray this morning. If no signs of pneumothorax, consider trying just and to waterseal or removal of chest tube. -Continue Dilaudid SUPERINTENDENT STEVEDORING until chest tube is removed. -Continue to use IV Tylenol for intermittent pain as needed, as it seems to provide reasonable relief. -Okay to advance diet as tolerated. Hep-Lock IV fluids, except the KVO for the SUPERINTENDENT STEVEDORING. -TRC's, incentive spirometer. -Mobilized out of bed to chair. -Subcutaneous heparin and Alps for DVT prophylaxis. Patient will be discharged without her Lovenox that was used preoperatively. -Continue home meds for trigeminal neuralgia, which has been updated and confirmed as of yesterday afternoon. -Add on magnesium to morning labs. -Appreciate critical care input. -Will discuss with attending. Core Measures/Miscellaneous Galvez Catheter Date In: 11/05/16 Venous Thromboembolism VTE Risk Factors: Age > 40, Cancer/chemo/oth therapy, Surgery VTE Contraindications: No Contraindications VTE Diagnosis: No Beta Nkechi Is Beta Nkechi a Home Med? No Antibiotics Is Patient on Antibiotics? No
--- NOTE | 2016-11-07 08:17 | RADIOLOGY REPORT ---
EXAMINATION: XR PORTABLE CHEST CLINICAL INFORMATION: Posterior chest tube removed. Evaluate for pneumothorax. COMPARISON: Previous chest x-rays most recent from yesterday TECHNIQUE: Portable frontal view of the chest was obtained. FINDINGS: The cardiac and mediastinal contours are stable. There is a left subclavian dual chamber pacemaker unchanged in position. There are postsurgical changes to the medial right upper lung. One of the 2 right chest tubes has been removed. No pneumothorax is seen. There is a small amount of right lower neck and chest wall subcutaneous emphysema not appreciably changed. There is increasing right apical thickening. There is increasing atelectasis at the left lung base. IMPRESSION: Postsurgical change to the right hemithorax. No pneumothorax post removal of one of 2 chest tubes. Increasing right apical pleural thickening or fluid. Increasing left base atelectasis.
--- NOTE | 2016-11-07 08:42 | PN- Resident CRCU ---
VISHAL CRUZ,ISMAIL 11/07/16 0842: Subjective HPI/CRCU Issues: Afebrile, hemodynamically stable, and saturating well on room air. Patient is sitting in the recliner looks relaxed and comfortable. She still reports fairly controlled pain around the chest tube. Patient trigeminal neurology patient pain significantly improved after she was started back on her home meds regimen Objective Vital Signs & I&O Last 8 Hrs of Vitals and I&O: Vital Signs Date Time Temp Pulse Resp B/P B/P Pulse O2 O2 Flow FiO2 Mean Ox Delivery Rate 11/07 0841 92 Room Air Room Air 11/07 0600 92 18 98/49 11/07 0400 98.1 84 16 110/76 11/07 0400 95 Room Air 11/07 0100 93 Room Air 11/07 0000 97.2 77 18 91/54 11/07 0000 97.2 77 18 96/60 92 Room Air 11/07 0000 93 Room Air 11/06 2000 97.4 87 24 120/70 11/06 2000 100 Room Air 11/06 1644 96 Room Air Room Air 11/06 1600 99.4 78 12 100/58 11/06 1600 94 Room Air Room Air 11/06 1600 99.4 78 16 100/58 95 Room Air Room Air 11/06 1400 97.7 84 20 152/68 11/06 1200 97.7 70 18 110/68 11/06 1200 95 Nasal 2.0L Cannula Intake & Output 11/07 1600 11/07 0800 11/07 0000 Intake Total 442 898 Output Total 815 990 Balance -373 -92 Intake, IV 392 598 Intake, Oral 50 300 Output, Chest 100 200 Tube Drainage Output, Urine 715 790 Exam General Appearance: well developed/nourished, no apparent distress, alert, awake , thin Head: atraumatic, normal appearance Respiratory: normal breath sounds, no respiratory distress, lungs clear, chest tube Gastrointestinal: soft, non-tender Extremities: normal inspection Current Medications: Current Medications Sig/Frances Start time Last Medication Dose Route Stop Time Status Admin Acetaminophen 1,000 MG Q6P PRN 11/05 1745 AC 11/07 IV 0911 Albuterol Sulfate 3 ML Q4 11/05 2200 AC 11/07 INH 0839 Clonazepam 0.5 MG TID 11/05 1600 AC 11/06 PO 06/29 1559 2205 Dextrose/Sodium 1,000 ML .Q20H 11/05 1745 DC 11/06 Chloride IV 0633 Diazepam 2 MG ONCE ONE 11/06 1015 DC 11/06 IV 11/06 1016 1021 Diazepam 10 MG .STK-MED ONE 11/06 1012 DC IM 11/06 1013 Docusate Sodium 100 MG DAILY 11/06 1000 AC 11/07 PO 1005 Fentanyl Citrate 50 MCG ONCE ONE 11/06 1015 DC 11/06 IV 11/06 1016 1019 Gabapentin 300 MG TID 11/06 1000 AC 11/07 PO 1005 Heparin Sodium 5,000 UNIT Q8 11/05 2200 AC 11/07 (Porcine) SC 0646 Hydromorphone HCl 50 MG Q24H PRN 11/05 1545 AC Sodium Chloride 45 ML IV Lidocaine 1 HOOD TIDPRN PRN 11/06 0900 AC 11/06 TOP 2219 Magnesium Sulfate 1 GM Q2H 11/06 1100 DC 11/06 Dextrose/Water 100 ML IV 11/06 1459 1400 Omeprazole 40 MG DAILY AC 11/06 0700 AC 11/07 PO 0643 Ondansetron HCl 4 MG Q6P PRN 11/05 1745 AC 11/06 IV 0549 Oxcarbazepine 600 MG AT BEDTIME 11/06 2200 AC 11/06 PO 2219 Oxcarbazepine 300 MG 0600,1300 11/06 1300 AC 11/07 PO 0643 Promethazine HCl 12.5 MG Q6P PRN 11/05 1745 AC IV 11/12 1514 Senna 374 MG AT BEDTIME NEED.. 11/05 1745 AC PO Sodium Chloride 1,000 ML .Q24H 11/07 0630 AC 11/07 IV 0649 Impression/Plan Impression/Problem List Impression: 76-year-old -[place] female with PMH of trigeminal neuralgia, brain meningioma status post gamma knife at [facility] and 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 #Right upper lobectomy POD #1 * Out of bed as possible * Wean off oxygen as possible * Pain management as needed * Chest tube in place, we will follow surgery recommendation. * Repeat chest x-ray this morning * And DVT prophylaxis at all times #Trigeminal neuralgia * Continue gabapentin 300 mg TID * Continue as oxcarbazepine 300 mg one tab at 6 am and 1 pm, and 2 tabs at bedtime. #Hyponatremia/hypokalemia/hypomagnesemia * Hx of lung cancer, low serum osm and low urin osm. 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 Heart healthy diet Full code Problem List: 1. Trigeminal neuralgia 2. Hyponatremia 3. Lung cancer Pain Ratin Tomorrow's Labs & Rationales: CBC and ICU bundle Plan DVT/Prophylaxis: mechanical, pharmacological Mark BAIN MD 11/07/16 0906: Attending MD Review Statement Attending Sign Off Attending Cosign Statement: I have: examined this patient, reviewed [facility] EMR data, personally reviewd images, discussd w/resident/PA/PEBBLE MILL OPERATOR, discussed mgmt plan w/pt, agreed w/resident/ PA/PEBBLE MILL OPERATOR.
[2016-11-08] VITALS: BP 110/64
[2016-11-08 04:00] VITALS: BP 72/54
--- NOTE | 2016-11-08 05:49 | PN- Thoracic Surgery ---
Subjective Subjective: Remaining chest tube placed to waterseal yesterday. Given a small bolus overnight for episode of hypotension, which was asymptomatic (sbp dropped into 70s). She denies dizziness. No shortness of breath. Tolerating diet. No nausea. Voiding without difficulty. She was out of bed to chair yesterday. Currently she is reporting she feels like she has to have a bm. Objective Vital Signs and I&Os Vital Signs Date Time Temp Pulse Resp B/P B/P Pulse O2 O2 Flow FiO2 Mean Ox Delivery Rate 11/08 0400 97.5 84 21 72/54 11/08 0123 97 Room Air 11/08 0000 99.1 98 20 110/64 11/08 1999 99.3 103 19 106/70 11/07 2000 99.3 103 20 106/70 94 Room Air 11/07 1833 40 18 109/65 11/07 1600 99.5 90 20 102/50 93 Room Air 11/07 1555 96 Room Air 11/07 1430 98.0 92 20 94/48 11/07 1200 98.0 90 20 90/50 97 11/07 0841 92 Room Air Room Air 11/07 0800 98.0 100 20 100/63 11/07 0800 98.2 96 20 110/60 96 Room Air 11/07 0600 92 18 98/49 Intake & Output 11/08 0800 11/08 0000 11/07 1600 11/07 0800 11/07 0000 11/06 1600 Intake Total 190 560 442 898 700 Output Total 60 520 945 280 1048 Balance 130 40 -373 -92 -310 Intake, IV 90 240 392 598 500 Intake, Oral 100 320 50 300 200 Output, Chest 60 100 100 200 110 Tube Drainage Output, Urine 420 715 790 900 Patient 160 lb Weight Physical Exam: General - alert & oriented x 3. comfortable. no acute distress. Lungs - clear. remaining chest tube to waterseal with no air leak. pleurovac drained 60 mls last recorded shift yesterday. Cardiac - s1s2. reg. Abdomen - soft. nontender. Extremities - warm bilaterally. no c/c/e. athrombics active. calves soft and nontender. Current Medications: Current Medications Sig/Frances Start time Last Medication Dose Route Stop Time Status Admin Acetaminophen 1,000 MG .STK-MED ONE 11/07 1620 DC IV 11/07 1621 Acetaminophen 1,000 MG Q6P PRN 11/05 1745 AC 11/08 IV 0231 Albuterol Sulfate 3 ML Q4 11/05 2200 AC 11/08 INH 0426 Clonazepam 0.5 MG TID 11/05 1600 AC 11/07 PO 11/12 1559 2125 Dextrose/Sodium 1,000 ML .Q20H 11/05 1745 DC 11/06 Chloride IV 0633 Docusate Sodium 100 MG DAILY 11/06 1000 AC 11/07 PO 1005 Gabapentin 300 MG TID 11/06 1000 AC 11/07 PO 2125 Heparin Sodium 5,000 UNIT Q8 11/05 2200 AC 11/07 (Porcine) SC 2126 Hydromorphone HCl 50 MG Q24H PRN 11/05 1545 AC Sodium Chloride 45 ML IV Lidocaine 1 HOOD TIDPRN PRN 11/06 0900 AC 11/07 TOP 1422 Omeprazole 40 MG DAILY AC 11/06 0700 AC 11/07 PO 0643 Ondansetron HCl 4 MG Q6P PRN 11/05 1745 AC 11/06 IV 0549 Oxcarbazepine 600 MG AT BEDTIME 11/06 2200 AC 11/07 PO 2125 Oxcarbazepine 300 MG 0600,1300 11/06 1300 AC 11/07 PO 1422 Promethazine HCl 12.5 MG Q6P PRN 11/05 1745 AC IV 11/12 1514 Senna 374 MG AT BEDTIME NEED.. 11/05 174 PO Sodium Chloride 500 ML BOLUS ONE 11/08 0415 DC 11/08 IV 11/08 0514 0424 Sodium Chloride 1,000 ML .Q24H 11/07 0630 AC 11/07 IV 0649 Results Last 48 Hours of Labs: Laboratory Tests 11/07 11/06 0415 1645 Chemistry Sodium (137 - 145 mmol/L) 132 L Potassium (3.5 - 5.1 mmol/L) 4.3 Chloride (98 - 107 mmol/L) 99 Carbon Dioxide (22 - 30 mmol/L) 26 Anion Gap (5 - 16) 8 BUN (7 - 17 mg/dL) 6 L Creatinine (0.5 - 1.0 mg/dL) 0.7 Estimated GFR (>60 ml/min) > 60 BUN/Creatinine Ratio (7 - 25 %) 8.6 Magnesium (1.6 - 2.3 mg/dL) 1.9 Hematology CBC w Diff NO MAN DIFF REQ WBC (4.8 - 10.8 /CUMM) 6.5 RBC (4.20 - 5.40 /CUMM) 4.23 Hgb (12.0 - 16.0 G/DL) 12.3 Hct (37 - 47 %) 37.3 MCV (81.0 - 99.0 FL) 88.3 MCH (27.0 - 31.0 PG) 29.1 RDW (11.5 - 14.5 %) 14.1 Plt Count (130 - 400 /CUMM) 276 MPV (7.4 - 10.4 FL) 7.6 Gran % (42.2 - 75.2 %) 69.6 Lymphocytes % (20.5 - 51.1 %) 15.7 L Monocytes % (1.7 - 9.3 %) 10.7 H Eosinophils % (0 - 5 %) 3.5 Basophils % (0.0 - 2.0 %) 0.5 Absolute Granulocytes (1.4 - 6.5 /CUMM) 4.5 Absolute Lymphocytes (1.2 - 3.4 /CUMM) 1.0 L Absolute Monocytes (0.10 - 0.60 /CUMM) 0.7 H Absolute Eosinophils (0.0 - 0.7 /CUMM) 0.2 Absolute Basophils (0.0 - 0.2 /CUMM) 0 PUBS MCHC (33.0 - 37.0 G/DL) 33.0 Urines Urine Osmolality (300 - 1000 MOSM/KG) 124 L Assessment/Plan Assessment/Plan This 76-year-old female is POD#3 s/p right upper lobectomy, s/p posterior chest tube removal, with anterior chest tube currently to waterseal tolerating diet pain controlled with glass breaker f/u cxr and labs this morning likely d/c remaining chest tube may consider PT eval once she is transferred out of icu hep sc - dvt ppx continue IS / TRC f/u critical care input will d/w Core Measures/Miscellaneous Galvez Catheter Date In: 11/05/16 Venous Thromboembolism VTE Risk Factors: Age > 40, Cancer/chemo/oth therapy, Surgery VTE Contraindications: No Contraindications VTE Diagnosis: No Beta Nkechi Is Beta Nkechi a Home Med? No Antibiotics Is Patient on Antibiotics? No
[2016-11-08 06:00] VITALS: BP 91/58
--- NOTE | 2016-11-08 07:29 | RADIOLOGY REPORT ---
EXAMINATION: XR PORTABLE CHEST CLINICAL INFORMATION: Postop right upper lobe lobectomy COMPARISON: Previous chest x-rays most recent from yesterday TECHNIQUE: Portable frontal view of the chest was obtained. FINDINGS: The cardiac and mediastinal contours are stable. There is left ventricular chamber pacemaker in satisfactory position. There are postsurgical changes in the right upper lung following right upper lobe lobectomy. There is right apical pleural thickening or pleural fluid and some increased attenuation in the right upper lung and superior hilar regions probably representing postsurgical change. This is similar to previous exam. There is slight elevation of the left hemidiaphragm. There is atelectasis at the bilateral lung bases. No significant pleural effusion is seen. There is no pneumothorax. Right apical chest tube is unchanged in position. IMPRESSION: Postsurgical changes following right upper lobe lobectomy similar to yesterday's exam. No pneumothorax.
[2016-11-08 08:00] VITALS: BP 90/64
--- NOTE | 2016-11-08 08:07 | PN- Resident CRCU ---
Subjective HPI/CRCU Issues: Right upper lobectomy - postoperative day 3 Trigeminal neuralgia Multiple electrolyte abnormalities including hyponatremia, hypokalemia, hypomagnesemia 24 Hour Events: She remained stable overnight without any acute events. She does report right chest pain in the region of chest tube. Chest drain was removed today. Currently saturating well on room air with no respiratory distress. Objective Vital Signs & I&O Last 8 Hrs of Vitals and I&O: Tmax of 99.1, heart rate 82-99 normal sinus rhythm with TX 0.12, blood pressure 76/50-110/60 mmHg on room air Total input/output is 3190/1110 Intake & Output 11/08 1600 Intake Total 390 Output Total Balance 390 Intake, IV 150 Intake, Oral 240 Exam General Appearance: well developed/nourished, no apparent distress, alert, awake , mild distress Head: atraumatic, normal appearance Ears, Nose, Throat: normal pharynx Neck: normal inspection, [place] venous pulsations, brisk carotid upstrokes Respiratory: normal breath sounds, no respiratory distress, tenderness in the right chest drain region, s/p removal of the tube Cardiovascular: regular rate/rhythm, normal peripheral pulses Gastrointestinal: normal bowel sounds, soft, non-tender Extremities: normal inspection, normal capillary refill, no edema Skin: intact, normal color IV Drips IV Drips: NONE Nutrition Nutrition: P.O. diet Current Medications: Current Medications Sig/Frances Start time Last Medication Dose Route Stop Time Status Admin Acetaminophen 1,000 MG .STK-MED ONE 11/08 0231 DC IV 11/08 0232 Acetaminophen 1,000 MG .STK-MED ONE 11/07 1620 DC IV 11/07 1621 Acetaminophen 1,000 MG Q6P PRN 11/05 1745 DC 11/08 IV 0231 Albuterol Sulfate 3 ML EVERY 4 HRS/AWAKE 11/08 1600 AC INH Albuterol Sulfate 3 ML Q4 11/05 2200 DC 11/08 INH 1323 Clonazepam 0.5 MG TID 11/05 1600 AC 11/08 PO 11/12 1559 1555 Docusate Sodium 100 MG DAILY 11/06 1000 AC 11/08 PO 1140 Gabapentin 300 MG TID 11/06 1000 AC 11/08 PO 1555 Heparin Sodium 5,000 UNIT Q8 11/05 2200 AC 11/08 (Porcine) SC 1555 Hydromorphone HCl 0.5 MG Q2-3 HRS NEEDED.. 11/08 0945 AC IV Hydromorphone HCl 50 MG Q24H PRN 11/05 1545 DC Sodium Chloride 45 ML IV Lidocaine 1 HOOD TIDPRN PRN 11/06 0900 AC 11/07 TOP 1422 Magnesium Oxide 400 MG BID 11/08 1000 AC 11/08 PO 11/08 2201 1139 Omeprazole 40 MG DAILY AC 11/06 0700 AC 11/08 PO 0603 Ondansetron HCl 4 MG Q6P PRN 11/05 1745 AC 11/06 IV 0549 Oxcarbazepine 600 MG AT BEDTIME 11/06 2200 AC 11/07 PO 2125 Oxcarbazepine 300 MG 0600,1300 11/06 1300 AC 11/08 PO 1205 Oxycodone/ 1 TAB Q4P PRN 11/08 0945 AC Acetaminophen PO Oxycodone/ 2 TAB Q4P PRN 11/08 0945 AC 11/08 Acetaminophen PO 1139 Promethazine HCl 12.5 MG Q6P PRN 11/05 1745 AC IV 11/12 1514 Senna 374 MG AT BEDTIME NEED.. 11/05 1745 AC PO Sodium Chloride 500 ML BOLUS ONE 11/08 0745 DC 11/08 IV 11/08 0844 0801 Sodium Chloride 500 ML BOLUS ONE 11/08 0415 DC 11/08 IV 11/08 0514 0424 Sodium Chloride 1,000 ML .Q24H 11/07 0630 DC 11/08 IV 0604 CXR Findings: IMPRESSION: Postsurgical changes following right upper lobe lobectomy similar to yesterday's exam. No pneumothorax. 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 Right upper lobectomy POD #3 * Out of bed as possible - currently on room air. * Pain management as needed - Dilauid 0.5 Q2-3hrs PRN, Percocet, Lidocaine patch * s/p chest tube removal - 1 today/1 yesterday. * CXR today shows no pneumothorax with post surgical changes. * TRC/Nebs Trigeminal neuralgia * Continue gabapentin 300 mg TID * Continue as oxcarbazepine 300 mg one tab at 6 am and 1 pm, and 2 tabs at bedtime. * Doing well. Hyponatremia/hypokalemia/hypomagnesemia * Hx of lung cancer, low serum osm and low urin osm. 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 Heart healthy diet DVT prophylaxis with SC heparin 5000units TID Full code Problem List: 1. Lung cancer 2. Hyponatremia 3. Trigeminal neuralgia 4. Status post lobectomy of lung Pain Ratin Pain Location: chest drain region Tomorrow's Labs & Rationales: cbc to monitor H&H bep to monitor electrolytes Plan DVT/Prophylaxis: mechanical, pharmacological
--- NOTE | 2016-11-08 09:00 | PN- CRCU ---
Subjective HPI/Critical Care Issues: The patient is awake and alert. The patient had transient hypotension overnight for which she received a fluid bolus. She was asymptomatic. She denies any shortness of breath. The patient is on room air. She is currently afebrile. Objective Current Medications: Current Medications Sig/Frances Start time Last Medication Dose Route Stop Time Status Admin Acetaminophen 1,000 MG .STK-MED ONE 11/07 1620 DC IV 11/07 1621 Acetaminophen 1,000 MG Q6P PRN 11/05 1745 AC 11/08 IV 0231 Albuterol Sulfate 3 ML Q4 11/05 2200 AC 11/08 INH 0426 Clonazepam 0.5 MG TID 11/05 1600 AC 11/07 PO 11/12 1559 2125 Docusate Sodium 100 MG DAILY 11/06 1000 AC 11/07 PO 1005 Gabapentin 300 MG TID 11/06 1000 AC 11/07 PO 2125 Heparin Sodium 5,000 UNIT Q8 11/05 2200 AC 11/08 (Porcine) SC 0603 Hydromorphone HCl 50 MG Q24H PRN 11/05 1545 AC Sodium Chloride 45 ML IV Lidocaine 1 HOOD TIDPRN PRN 11/06 0900 AC 11/07 TOP 1422 Omeprazole 40 MG DAILY AC 11/06 0700 AC 11/08 PO 0603 Ondansetron HCl 4 MG Q6P PRN 11/05 1745 AC 11/06 IV 0549 Oxcarbazepine 600 MG AT BEDTIME 11/06 2200 AC 11/07 PO 2125 Oxcarbazepine 300 MG 0600,1300 11/06 1300 AC 11/08 PO 0603 Promethazine HCl 12.5 MG Q6P PRN 11/05 1745 AC IV 11/12 1514 Senna 374 MG AT BEDTIME NEED.. 11/05 1745 AC PO Sodium Chloride 500 ML BOLUS ONE 11/08 0745 DC 11/08 IV 11/08 0844 0801 Sodium Chloride 500 ML BOLUS ONE 11/08 0415 DC 11/08 IV 11/08 0514 0424 Sodium Chloride 1,000 ML .Q24H 11/07 0630 AC 11/08 IV 0604 Vital Signs & I&O Last 24 Hrs of Vitals and I&O: Vital Signs Date Time Temp Pulse Resp B/P B/P Pulse O2 O2 Flow FiO2 Mean Ox Delivery Rate 11/08 0600 97.9 82 21 91/58 97 Room Air 11/08 0400 97.5 84 21 72/54 11/08 0123 97 Room Air 11/08 0000 99.1 98 20 110/64 11/08 1999 99.3 103 19 106/70 11/08 1999 99.3 103 20 106/70 94 Room Air 11/07 1833 40 18 109/65 11/07 1600 99.5 90 20 102/50 93 Room Air 11/07 1555 96 Room Air 11/07 1430 98.0 92 20 94/48 11/07 1200 98.0 90 20 90/50 97 Intake & Output 11/08 1600 11/08 0800 11/08 0000 Intake Total 190 Output Total 310 60 Balance -310 130 Intake, IV 90 Intake, Oral 100 Output, Chest 60 60 Tube Drainage Output, Urine 250 Exam General Appearance: well developed/nourished, no apparent distress, alert, awake , thin Head: atraumatic, normal appearance Respiratory: normal breath sounds, no respiratory distress, lungs clear, chest tube Gastrointestinal: soft, non-tender Extremities: normal inspection Results Last 24 Hrs of Lab Results: Laboratory Tests 11/08/16 0750: Sodium Pending, Potassium Pending, Chloride Pending, Carbon Dioxide Pending, Anion Gap Pending, BUN Pending, Creatinine Pending, Glucose Pending, Calcium Pending, Phosphorus Pending, Magnesium Pending, Total Bilirubin Pending, AST Pending, ALT Pending, Albumin Pending, CBC w Diff Pending, WBC Pending, RBC Pending, Hgb Pending, Hct Pending, MCV Pending, MCH Pending, RDW Pending, Plt Count Pending, MPV Pending, PUBS MCHC Pending Impression/Plan Impression/Plan Impression/Plan: 1. Adenocarcinoma of the lung, s/p RUL resection. 2. Trigeminal neuralgia. 3. History of brain meningioma s/p gamma knife. Recommendations: * Chest tube management as per CT surgery. * Continue pain medications for trigeminal neuralgia. * Complete IVF bolus. * Monitor strict I&Os. * Continue nebs/TRC/post thoracotomy management. * DVT prophylaxis at all times. * Out of bed to chair/increase activity. * Continue all supportive care.
[2016-11-08 09:14] LABS: ABSOLUTE BASOPHIL COUNT 0 /CUMM (0.0-0.2); ABSOLUTE EOSINOPHIL COUNT 0.2 /CUMM (0.0-0.7); ABSOLUTE GRANULOCYTE CT 5.3 /CUMM (1.4-6.5); ABSOLUTE LYMPH COUNT 1.4 /CUMM (1.2-3.4); ABSOLUTE MONOCYTE COUNT 0.9 /CUMM (0.10-0.60); BASOPHIL % 0.5 % (0.0-2.0); EOSINOPHIL % 2.9 % (0-5); GRANULOCYTE % 66.8 % (42.2-75.2); HEMATOCRIT 37.4 % (37-47); MEAN CORPUSCULAR HGB 29.3 PG (27.0-31.0); MEAN PLATELET VOLUME 8.3 FL (7.4-10.4); PLATELET COUNT 294 /CUMM (130-400); RED BLOOD CELL CT 4.21 /CUMM (4.20-5.40); WHITE BLOOD CELL COUNT 7.9 /CUMM (4.8-10.8)
[2016-11-08 12:00] VITALS: BP 97/59
[2016-11-08 16:00] VITALS: BP 104/62
[2016-11-09] VITALS: BP 114/60
[2016-11-09 05:24] LABS: ABSOLUTE BASOPHIL COUNT 0 /CUMM (0.0-0.2); ABSOLUTE EOSINOPHIL COUNT 0.2 /CUMM (0.0-0.7); ABSOLUTE GRANULOCYTE CT 5.2 /CUMM (1.4-6.5); ABSOLUTE LYMPH COUNT 1.4 /CUMM (1.2-3.4); BASOPHIL % 0.4 % (0.0-2.0); EOSINOPHIL % 2.8 % (0-5); GRANULOCYTE % 65.6 % (42.2-75.2); HEMATOCRIT 34.7 % (37-47); MEAN CORPUSCULAR HGB 29.4 PG (27.0-31.0); MEAN CORPUSCULAR HGB CONC 33.1 G/DL (33.0-37.0); MEAN CORPUSCULAR VOLUME 88.7 FL (81.0-99.0); MEAN PLATELET VOLUME 7.9 FL (7.4-10.4); PLATELET COUNT 320 /CUMM (130-400); RBC DISTRIBUTION WIDTH 14.3 % (11.5-14.5); RED BLOOD CELL CT 3.91 /CUMM (4.20-5.40); WHITE BLOOD CELL COUNT 7.9 /CUMM (4.8-10.8)
--- NOTE | 2016-11-09 05:52 | PN- Thoracic Surgery ---
Subjective Subjective: The patient was seen this morning postoperatively day #4. She reports feeling somewhat more comfortable now that the tubes have been removed and has no other complaints this morning aside for some mild incisional pain. She denies any true chest pain or difficulty breathing. Objective Vital Signs and I&Os Vital Signs Date Time Temp Pulse Resp B/P B/P Pulse O2 O2 Flow FiO2 Mean Ox Delivery Rate 11/09 0000 98.6 70 24 114/60 97 Room Air 11/08 2017 93 Room Air 11/08 1650 96 Room Air Room Air 11/08 1600 97 Room Air 11/08 1600 98.7 75 21 104/62 97 Room Air 11/08 1200 98.6 77 24 97/59 11/08 1200 95 Room Air 11/08 0850 96 Room Air 11/08 0800 98.8 80 16 90/64 11/08 0800 95 Room Air 11/08 0800 98.8 80 16 90/64 95 Room Air 11/08 0600 97.9 82 21 91/58 97 Room Air Intake & Output 11/09 0800 11/09 0000 11/08 1600 11/08 0800 11/08 0000 11/07 1600 Intake Total 270 390 190 560 Output Total 310 60 520 Balance 270 390 -310 130 40 Intake, IV 150 90 240 Intake, Oral 270 240 100 320 Output, Chest 60 60 100 Tube Drainage Output, Urine 250 420 Patient 160 lb Weight Physical Exam: Gen.: Sleepy but easily arousable and in no obvious distress Skin: Warm and dry Chest: Equal expansion, surgical dressings are clean, dry, and intact. Cardiac: S1 and S2 regular Pulmonary: Bilateral breath sounds are equal and somewhat coarse with good exchange Extremities: Bilateral lower extremities are warm without calf tenderness or significant edema. Assessment/Plan Assessment/Plan Assessment: 76-year-old female status post right upper lobectomy postoperative day #4. The patient is progressing as expected, her pain is under adequate control, and she is oxygenating adequately on no O2 requirements currently. Plan: Follow-up morning laboratory studies and chest x-ray If the chest x-ray shows no pneumothorax would consider transferring patient to general medical Out of bed with physical therapy Continue current pain regiment Strict I's and O's GI and DVT prophylaxis Total respiratory care per post thoracotomy protocol Follow-up pulmonary critical care consultation recommendations Core Measures/Miscellaneous Galvez Catheter Date In: 11/05/16 Venous Thromboembolism VTE Risk Factors: Age > 40, Cancer/chemo/oth therapy, Surgery VTE Contraindications: No Contraindications VTE Diagnosis: No Beta Nkechi Is Beta Nkechi a Home Med? No Antibiotics Is Patient on Antibiotics? No
--- NOTE | 2016-11-09 07:48 | PN- Resident CRCU ---
Subjective HPI/CRCU Issues: Afebrile, hemodynamically stable, saturating well on room air. Patient is complaining 5/10 right side chest pain. However she has not been taking her Percocet because it makes her drowsy. Her trigeminal neuralgia pain is well controlled. Patient has been ambulated with physical therapy. Objective Vital Signs & I&O Last 8 Hrs of Vitals and I&O: Vital Signs Date Time Temp Pulse Resp B/P B/P Pulse O2 O2 Flow FiO2 Mean Ox Delivery Rate 11/09 1200 95 Room Air 11/09 0805 96 Room Air Room Air 11/09 0800 95 Room Air 11/09 0800 99.3 71 25 122/60 95 Room Air 11/09 0400 Room Air 11/09 0000 Room Air 11/09 0000 98.6 70 24 114/60 97 Room Air 11/08 2018 93 Room Air 11/08 1650 96 Room Air Room Air 11/08 1600 97 Room Air 11/08 1600 98.7 75 21 104/62 97 Room Air Intake & Output 11/09 1600 11/09 0800 11/09 0000 Intake Total 270 Output Total 250 Balance -250 270 Intake, Oral 270 Output, Urine 250 Exam General Appearance: well developed/nourished, no apparent distress, alert, awake , comfortable Head: atraumatic, normal appearance Respiratory: chest non-tender (right side chest tenderness), no respiratory distress Cardiovascular: regular rate/rhythm, paced Gastrointestinal: soft, non-tender Extremities: normal inspection, no edema Current Medications: Current Medications Sig/Frances Start time Last Medication Dose Route Stop Time Status Admin Acetaminophen 1,000 MG ONCE ONE 11/09 1130 DC 11/09 N/A 1 UNIT IV 11/09 1144 1131 Albuterol Sulfate 3 ML EVERY 4 HRS/AWAKE 11/08 1600 AC 11/09 INH 1148 Albuterol Sulfate 3 ML Q4 11/05 2200 DC 11/08 INH 1323 Clonazepam 1 MG .STK-MED ONE 11/08 2154 DC PO 11/08 215 Clonazepam 0.5 MG TID 11/05 1600 AC 11/09 PO 11/12 1559 0947 Docusate Sodium 100 MG DAILY 11/06 1000 AC 11/09 PO 0947 Gabapentin 300 MG TID 11/06 1000 AC 11/09 PO 0948 Heparin Sodium 5,000 UNIT Q8 11/05 2200 AC 11/09 (Porcine) SC 0540 Hydromorphone HCl 0.5 MG Q2-3 HRS NEEDED.. 11/08 0945 AC IV Lidocaine 1 HOOD TIDPRN PRN 11/06 0900 AC 11/07 TOP 1422 Magnesium Oxide 400 MG BID 11/08 1000 DC 11/08 PO 11/08 2201 2202 Omeprazole 40 MG DAILY AC 11/06 0700 AC 11/09 PO 0540 Ondansetron HCl 4 MG Q6P PRN 11/05 1745 AC 11/06 IV 0549 Oxcarbazepine 600 MG AT BEDTIME 11/06 2200 AC 11/08 PO 2203 Oxcarbazepine 300 MG 0600,1300 11/06 1300 AC 11/09 PO 0541 Oxycodone/ 1 TAB Q4P PRN 11/08 0945 AC 11/08 Acetaminophen PO 1900 Oxycodone/ 2 TAB Q4P PRN 11/08 0945 AC 11/08 Acetaminophen PO 1139 Promethazine HCl 12.5 MG Q6P PRN 11/05 1745 AC IV 11/12 1514 Senna 374 MG AT BEDTIME NEED.. 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 #Right upper lobectomy POD #4 * Out of bed as possible * Pain management as needed * Repeat chest x-ray this morning, if no pneumothorax she will be transferred to telemetry. * And DVT prophylaxis at all times #Trigeminal neuralgia * Continue gabapentin 300 mg TID * Continue as oxcarbazepine 300 mg one tab at 6 am and 1 pm, and 2 tabs at bedtime. #Hyponatremia/hypokalemia/hypomagnesemia * Hx of lung cancer, low serum osm and low urin osm. 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 Heart healthy diet Full code Problem List: 1. Status post lobectomy of lung Pain Ratin Tomorrow's Labs & Rationales: CBC and ICU bundle Plan DVT/Prophylaxis: mechanical, pharmacological
[2016-11-09 08:00] VITALS: BP 122/60
--- NOTE | 2016-11-09 08:34 | PN- CRCU ---
Subjective HPI/Critical Care Issues: The patient is awake and alert. Initially she was resting comfortably. She has been ambulating more frequently throughout the unit. Her tube thoracostomy has been removed and she is doing well from a respiratory perspective noting she is on room air. She is voiding spontaneously and her Galvez has been removed. The patient becomes very drowsy after receiving Percocet. Objective Current Medications: Current Medications Sig/Frances Start time Last Medication Dose Route Stop Time Status Admin Acetaminophen 1,000 MG Q6P PRN 11/05 1745 DC 11/08 IV 0231 Albuterol Sulfate 3 ML EVERY 4 HRS/AWAKE 11/08 1600 AC 11/09 INH 0748 Albuterol Sulfate 3 ML Q4 11/05 2200 DC 11/08 INH 1323 Clonazepam 1 MG .STK-MED ONE 11/08 2154 DC PO 11/08 215 Clonazepam 0.5 MG TID 11/05 1600 AC 11/08 PO 11/12 1559 2204 Docusate Sodium 100 MG DAILY 11/06 1000 AC 11/08 PO 1140 Gabapentin 300 MG TID 11/06 1000 AC 11/08 PO 2203 Heparin Sodium 5,000 UNIT Q8 11/05 2200 AC 11/09 (Porcine) SC 0540 Hydromorphone HCl 0.5 MG Q2-3 HRS NEEDED.. 11/08 0945 AC IV Hydromorphone HCl 50 MG Q24H PRN 11/05 1545 DC Sodium Chloride 45 ML IV Lidocaine 1 HOOD TIDPRN PRN 11/06 0900 AC 11/07 TOP 1422 Magnesium Oxide 400 MG BID 11/08 1000 DC 11/08 PO 11/08 2201 2202 Omeprazole 40 MG DAILY AC 11/06 0700 AC 11/09 PO 0540 Ondansetron HCl 4 MG Q6P PRN 11/05 1745 AC 11/06 IV 0549 Oxcarbazepine 600 MG AT BEDTIME 11/06 2200 AC 11/08 PO 2203 Oxcarbazepine 300 MG 0600,1300 11/06 1300 AC 11/09 PO 0541 Oxycodone/ 1 TAB Q4P PRN 11/08 0945 AC 11/08 Acetaminophen PO 1900 Oxycodone/ 2 TAB Q4P PRN 11/08 0945 AC 11/08 Acetaminophen PO 1139 Promethazine HCl 12.5 MG Q6P PRN 11/05 1745 AC IV 11/12 1514 Senna 374 MG AT BEDTIME NEED.. 11/05 1745 AC 11/08 PO 2205 Sodium Chloride 500 ML BOLUS ONE 11/08 0745 DC 11/08 IV 11/08 0844 0801 Sodium Chloride 1,000 ML .Q24H 11/07 0630 DC 11/08 IV 0604 Vital Signs & I&O Last 24 Hrs of Vitals and I&O: Vital Signs Date Time Temp Pulse Resp B/P B/P Pulse O2 O2 Flow FiO2 Mean Ox Delivery Rate 11/09 0805 96 Room Air Room Air 11/09 0400 Room Air 11/09 0000 Room Air 11/09 0000 98.6 70 24 114/60 97 Room Air 11/08 2018 93 Room Air 11/08 1650 96 Room Air Room Air 11/08 1600 97 Room Air 11/08 1600 98.7 75 21 104/62 97 Room Air 11/08 1200 98.6 77 24 97/59 11/08 1200 95 Room Air 11/08 0850 96 Room Air Intake & Output 11/09 1600 11/09 0800 11/09 0000 Intake Total 270 Output Total 250 Balance -250 270 Intake, Oral 270 Output, Urine 250 Exam General Appearance: well developed/nourished, no apparent distress, alert, awake , thin Head: atraumatic, normal appearance Respiratory: normal breath sounds, no respiratory distress, lungs clear, chest tube Gastrointestinal: soft, non-tender Extremities: normal inspection Results Last 24 Hrs of Lab Results: Laboratory Tests 11/09/16 0500: Anion Gap 8, Estimated GFR > 60, Glucose 104 H, Calcium 9.3, Phosphorus 3.3, Magnesium 2.0, Total Bilirubin 0.5, AST 17, ALT 20, Albumin 2.8 L, CBC w Diff NO MAN DIFF REQ, RBC 3.91 L, MCV 88.7, MCH 29.4, RDW 14.3, MPV 7.9, Gran % 65.6 , Lymphocytes % 18.1 L, Monocytes % 13.1 H, Eosinophils % 2.8, Basophils % 0.4 , Absolute Granulocytes 5.2, Absolute Lymphocytes 1.4, Absolute Monocytes 1.0 H , Absolute Eosinophils 0.2, Absolute Basophils 0, PUBS MCHC 33.1 Impression/Plan Impression/Plan Impression/Plan: 1. Adenocarcinoma of the lung, s/p RUL resection. 2. Trigeminal neuralgia - with better control of pain. 3. History of brain meningioma s/p gamma knife. 4. Elevated TSHthis will need to be followed up by the patient's primary care physician. 5. Mild hyponatremia. Recommendations: * Continue pain medications for trigeminal neuralgia. * Monitor strict I&Os. * Continue nebs/TRC/post thoracotomy management. * DVT prophylaxis at all times. * Out of bed to chair/increase activity. * Continue all supportive care. * Patient to follow-up with primary care physician regarding elevated TSH after discharge.
--- NOTE | 2016-11-09 08:53 | Patient Discharge Instructions ---
Discharge Instructions General Discharge Information You were seen/treated for: Right upper lobe lung cancer You had these procedures: Surgery Date: 11/05/16 Name of Procedure: Right upper lobectomy. Mediastinal lymph node dissection Watch for these problems: fever>101.3, increased pain, redness/swelling/drainage, shortness of breath, chest pain, dizziness No bath, but you may shower: Yes Other wound care: ok to remove covering guaze, but leave white steri strips in place. keep incisions clean & dry. use dry guaze dressing changes daily as needed for previous chest tube sites, which may continue to drain for a few days. Diet Continue normal diet: Yes Recommended Diet: Heart Healthy Activity Full Activity/No Limits: No Activity Self Limited: Yes Pounds, do NOT lift more than: 10 Activity Limited to: Weight bear as tolerated Acute Coronary Syndrome Inclusion Criteria At DC or during hospital stay patient has or had the following: ACS DIAGNOSIS No Discharge Core Measures Meds if any: Prescribed or Continued at Discharge Meds if any: NOT Prescribed or Continued at Discharge Congestive Heart Failure Inclusion Criteria At DC or during hospital stay patient has or had the following: CHF DIAGNOSIS No Discharge Core Measures Meds if any: Prescribed or Continued at Discharge Meds if any: NOT Prescribed or Continued at Discharge Cerebrovascular accident Inclusion Criteria At DC or during hospital stay patient has or had the following: CVA/TIA Diagnosis No Discharge Core Measures Meds if any: Prescribed or Continued at Discharge Meds if any: NOT Prescribed or Continued at Discharge Venous thromboembolism Inclusion Criteria VTE Diagnosis No VTE Type NONE VTE Confirmed by (Test) NONE Discharge Core Measures - Per Current guidelines, there needs to be overlap - treatment for the first 5 days of Warfarin therapy. - If discharged on Warfarin prior to 5 days of - overlap therapy, the patient will need to be - assessed for post discharge needs including - *Post discharge parental anticoagulation - *Warfarin and/or parental anticoagulation education - *Follow up date to check INR post discharge At least 5 days overlap therapy as Inpatient No Meds if any: Prescribed or Continued at Discharge Note: Overlap Therapy is Warfarin and Anticoagulant Meds if any: NOT Prescribed or Continued at Discharge
[2016-11-09] MEDS ORDERED: TRILEPTAL600 M1 PO (09:01)
[2016-11-09] MEDS ORDERED: TRILEPTAL300 M1 PO (09:03)
[2016-11-09] MEDS ORDERED: PERCOCET 5-3251 EACH PO (09:04)
[2016-11-09] MEDS ORDERED: DOCUSATE SODIU100 M3 PO (09:04)
--- NOTE | 2016-11-09 11:13 | RADIOLOGY REPORT ---
EXAMINATION: XR PORTABLE CHEST CLINICAL INFORMATION: Status post thoracotomy and right upper lobectomy. COMPARISON: CXR from 10/20/2016 and 11/08/2016 TECHNIQUE: Portable frontal view of the chest was obtained. FINDINGS: Lungs are hypoinflated status post right upper lobectomy with suture line extending from the hilum toward the apex. The right thoracostomy tube has been removed and opacity, likely atelectasis, has slightly increased at the right lateral base. Small right pleural effusion extends from the level of the costophrenic sulcus to the apex and there is likely loculated pleural fluid with small amount of loculated air at the apex. Again noted ill-defined heterogeneous opacity in the postoperative right apex without significant interval change from 11/08/2016. The mild left basilar atelectasis and left diaphragm elevation are unchanged. Cardiac silhouette is normal in size. The dual-chamber cardiac pacing leads are in their expected positions. IMPRESSION: The right basilar atelectasis and small pleural effusion appears slightly increased compared to 11/08/2016 status post thoracostomy tube removal.
[2016-11-09 16:00] VITALS: BP 98/52
[2016-11-09 22:44] VITALS: BP 110/58
[2016-11-10 06:38] VITALS: BP 100/62
--- NOTE | 2016-11-10 07:09 | PN- Thoracic Surgery ---
Subjective Subjective: The patient was seen this morning postoperatively day #5. She has no complaints and reports that her pain is under adequate control. She denies any chest pain, palpitations, or difficulty breathing. Objective Vital Signs and I&Os Vital Signs Date Time Temp Pulse Resp B/P B/P Pulse O2 O2 Flow FiO2 Mean Ox Delivery Rate 11/10 0638 98.8 82 20 100/62 95 Room Air 11/10 0000 Room Air 11/09 2244 98.6 92 20 110/58 93 Room Air 11/09 1648 94 Room Air Room Air 11/09 1600 97.2 75 16 98/52 99 Room Air 11/09 1200 95 Room Air 11/09 0805 96 Room Air Room Air 11/09 0800 95 Room Air 11/09 0800 99.3 71 25 122/60 95 Room Air Intake & Output 11/10 0800 11/10 0000 11/09 1600 11/09 0800 11/09 0000 11/08 1600 Intake Total 120 250 460 270 390 Output Total 400 200 300 250 Balance -280 50 160 -250 270 390 Intake, IV 130 150 Intake, Oral 120 250 330 270 240 Number 0 Bowel Movements Output, Urine 400 200 300 250 Physical Exam: Gen.: Alert and in no obvious distress Skin: Warm and dry Cardiac: S1 and S2 regular Pulmonary: Bilateral breath sounds are equal, course, with good exchange Chest: Equal expansion, the surgical dressing is clean, dry, and intact. Extremities: Bilateral lower extremities are warm without calf tenderness or significant edema. Assessment/Plan Assessment/Plan Assessment: 76-year-old female status post right thoracotomy and upper lobectomy postoperative day #5. The patient is progressing as expected, her pain is under adequate control, and she is oxygenating adequately on room air. Plan: Out of bed and ambulate Total respiratory care per postop recovery protocol Continue current pain regiment GI and DVT prophylaxis Discharge home later today Follow-up pulmonary consultation recommendations Core Measures/Miscellaneous Galvez Catheter Date In: 11/05/16 Venous Thromboembolism VTE Risk Factors: Age > 40, Cancer/chemo/oth therapy, Surgery VTE Contraindications: No Contraindications VTE Diagnosis: No Beta Nkechi Is Beta Nkechi a Home Med? No Antibiotics Is Patient on Antibiotics? No
[2016-11-10 09:13] LABS: ABSOLUTE BASOPHIL COUNT 0 /CUMM (0.0-0.2); ABSOLUTE EOSINOPHIL COUNT 0.4 /CUMM (0.0-0.7); ABSOLUTE GRANULOCYTE CT 3.3 /CUMM (1.4-6.5); ABSOLUTE MONOCYTE COUNT 0.5 /CUMM (0.10-0.60); BASOPHIL % 0.6 % (0.0-2.0); EOSINOPHIL % 7.8 % (0-5); GRANULOCYTE % 62.6 % (42.2-75.2); HEMATOCRIT 32.5 % (37-47); MEAN CORPUSCULAR HGB 29.5 PG (27.0-31.0); MEAN CORPUSCULAR HGB CONC 33.2 G/DL (33.0-37.0); MEAN CORPUSCULAR VOLUME 88.6 FL (81.0-99.0); MEAN PLATELET VOLUME 8.8 FL (7.4-10.4); PLATELET COUNT 320 /CUMM (130-400); RBC DISTRIBUTION WIDTH 14.3 % (11.5-14.5); RED BLOOD CELL CT 3.66 /CUMM (4.20-5.40); WHITE BLOOD CELL COUNT 5.2 /CUMM (4.8-10.8)
--- NOTE | 2016-11-10 09:22 | PN- Medicine Consult ---
MONICA RUIZ 11/10/16 0921: Assessment/Plan Assessment/Plan Assessment: This is a 76-year-old -[place]inamese lady with past medical history significant for trigeminal neuralgia, brain meningioma status post gamma knife, lung adenocarcinoma status post right upper lobectomy. While in the ICU, medical team was consulted for management of trigeminal neuralgia. While inpatient, she was found to be hyponatremic(asymptomatic), also was noted to have elevated TSH(TSH level 10.4, 09/14/2016, free T4 0.53). She was downgraded to general medicine floor overnight. Has remained pain-free on her home medications. Plan: * Continue current pain medication regimen for trigeminal neuralgia. * Patient will need to follow-up with primary care physician regarding elevated TSH and hyponatremia. * Rest of management as per primary team. Problem List: 1. Lung cancer 2. Hyponatremia 3. Trigeminal neuralgia Subjective Subjective: Patient seen and examined. Offers no complaints. She has remained pain-free. Denies any headache, nausea, vomiting, shortness of breath, chest pain, abdominal pain, urinary symptoms. She was downgraded to medicine floor last night. Vital signs are stable. Review of Systems Constitutional: Reports: no symptoms. Objective Last 24 Hrs of Vital Signs/I&O Vital Signs Date Time Temp Pulse Resp B/P B/P Pulse O2 O2 Flow FiO2 Mean Ox Delivery Rate 11/10 0638 98.8 82 20 100/62 95 Room Air 11/10 0000 Room Air 11/09 2244 98.6 92 20 110/58 93 Room Air 11/09 1648 94 Room Air Room Air 11/09 1600 97.2 75 16 98/52 99 Room Air 11/09 1200 95 Room Air Intake & Output 11/10 1600 11/10 0800 11/10 0000 Intake Total 120 250 Output Total 400 200 Balance -280 50 Intake, IV Intake, Oral 120 250 Output, Urine 400 200 Physical Exam General Appearance: well developed/nourished, no apparent distress, alert, awake , comfortable Head: atraumatic, normal appearance Ears, Nose, Throat: normal pharynx, normal ENT inspection Neck: normal inspection, supple Cardiovascular: regular rate/rhythm, No murmur Respiratory: normal breath sounds, chest non-tender, no respiratory distress, lungs clear Abdomen: normal bowel sounds, soft, non-tender, no organomegaly Back: normal inspection Extremities: normal inspection, no edema, Normal/Symmetrical pulses Neurologic/Psychiatric: no motor/sensory deficits, alert, oriented x 3, Normal reflexes Skin: intact Current Medications: Current Medications Sig/Frances Start time Last Medication Dose Route Stop Time Status Admin Acetaminophen 1,000 MG ONCE ONE 11/09 1130 DC 11/09 N/A 1 UNIT IV 11/09 1144 1131 Albuterol Sulfate 3 ML BID 11/09 2200 AC INH Albuterol Sulfate 3 ML EVERY 4 HRS/AWAKE 11/08 1600 DC 11/09 INH 2054 Clonazepam 0.5 MG TID 11/05 1600 AC 11/10 PO 11/12 1559 0902 Docusate Sodium 100 MG DAILY 11/06 1000 AC 11/10 PO 0856 Gabapentin 300 MG TID 11/06 1000 AC 11/10 PO 0856 Heparin Sodium 5,000 UNIT Q8 11/05 2200 AC 11/10 (Porcine) SC 0558 Hydromorphone HCl 0.5 MG Q2-3 HRS NEEDED.. 11/08 0945 AC IV Lidocaine 1 HOOD TIDPRN PRN 11/06 0900 AC 11/07 TOP 1422 Omeprazole 40 MG DAILY AC 11/06 0700 AC 11/10 PO 0557 Ondansetron HCl 4 MG Q6P PRN 11/05 1745 AC 11/06 IV 0549 Oxcarbazepine 600 MG AT BEDTIME 11/06 2200 AC 11/09 PO 2107 Oxcarbazepine 300 MG 0600,1300 11/06 1300 AC 11/10 PO 0557 Oxycodone/ 1 TAB Q4P PRN 11/08 0945 AC 11/08 Acetaminophen PO 1900 Oxycodone/ 2 TAB Q4P PRN 11/08 0945 AC 11/08 Acetaminophen PO 1139 Promethazine HCl 12.5 MG Q6P PRN 11/05 174 AC IV 11/12 1514 Senna 374 MG AT BEDTIME NEED.. 11/05 174 AC 11/09 PO 210 Results Last 24 Hrs Lab/Km Results: Laboratory Tests 11/10/16 0634: Anion Gap 5, Estimated GFR > 60, Glucose 90, Calcium 8.9, Phosphorus 3.4, Magnesium 1.8, Total Bilirubin 0.4, AST 16, ALT 23, Albumin 2.6 L, CBC w Diff NO MAN DIFF REQ, RBC 3.66 L, MCV 88.6, MCH 29.5, RDW 14.3, MPV 8.8, Gran % 62.6 , Lymphocytes % 20.1 L, Monocytes % 8.9, Eosinophils % 7.8 H, Basophils % 0.6, Absolute Granulocytes 3.3, Absolute Lymphocytes 1.0 L, Absolute Monocytes 0.5, Absolute Eosinophils 0.4, Absolute Basophils 0, PUBS MCHC 33.2 SOURAVLEXA BarneyEDGAR 11/10/16 0955: Attending MD Review Statement Attending Sign Off Attending Cosign Statement: I have: examined this patient, reviewed aval EMR data, personally reviewd images, discussd w/resident/PA/FACING SLITTER, discussed mgmt plan w/norm, discussed mgmt plan w/CM, discussed mgmt plan w/pt. Other Findings: Patient medically stable for d.c, resume home meds and f/u o/p PCP
--- NOTE | 2016-11-10 09:27 | RADIOLOGY REPORT ---
EXAMINATION: XR PORTABLE CHEST CLINICAL INFORMATION: Status post removal of chest tubes. Atelectasis and effusion seen. Compared to previous. Postoperative thoracotomy. COMPARISON: Multiple prior chest x-rays, most recent of which is dated 11/09/2016. TECHNIQUE: Portable AP semierect view of the chest was obtained. FINDINGS: Right atrial and right ventricular pacer leads are seen in place, unchanged. The cardiomediastinal silhouette is within normal limits in size.. Low lung volumes are seen. Stable changes related to prior right upper lobectomy again noted with ill-defined hazy right apical parenchymal opacities and surgical saba extending from the hilum to the superior lung surface. There is a persistent right apical opacity seen, likely representing loculated fluid and air in the right lung apex status post thoracotomy. Findings are unchanged from the prior exam. Bibasilar opacities again noted, unchanged. Bony structures unremarkable. IMPRESSION: 1. Postthoracotomy changes in the right lung are again noted with associated right apical loculated pleural fluid with internal locules of air, unchanged. 2. No significant change in bibasilar opacities, most consistent with postoperative atelectasis. Clinical correlation requested.
[2016-11-10] MEDS ORDERED: DOCUSATE SODIU100 M3 PO (12:21)
[2016-11-10] MEDS ORDERED: PERCOCET 5-3251 EACH PO (12:21)
== END 2016-11-10 12:48 | disposition home health service (06) | DRG 164 ==
LOC: SDA 01:12 → CRI 01:12 → ENRESERV 16:22 → ENTRNSPT 17:23 → CRI 17:33 → EDTRNSPTTYP 17:38 → EDTRNSPT 17:38 → CMPTRNSPT 17:47 → 2NB 11-09 22:33 → ENPENDDIS 11-10 10:16 → 2NB 11-10 12:48
PROVIDERS: Internal Medicine; Nurse Practitioner; Physician Assistant Surgical; Student in an Organized Health Care Education/Training Program; ADMIT Thoracic Surgery (Cardiothoracic Vascular Surgery)
PROC: 07B70ZZ Excision of Thorax Lymphatic, Open Approach (ICD-10-PCS; principal; 2016-11-05)
PROC: 0BTC0ZZ Resection of Right Upper Lung Lobe, Open Approach (ICD-10-PCS; principal; 2016-11-05)
DX: C34.11 Malignant neoplasm of upper lobe, right bronchus or lung (principal); C77.1 Secondary and unspecified malignant neoplasm of intrathoracic lymph nodes; E87.1 Hypo-osmolality and hyponatremia; E83.42 Hypomagnesemia; J45.909 Unspecified asthma, uncomplicated; I95.81 Postprocedural hypotension; Z95.0 Presence of cardiac pacemaker; G50.0 Trigeminal neuralgia; I10 Essential (primary) hypertension; E87.6 Hypokalemia; Z87.891 Personal history of nicotine dependence
CPT/HCPCS: 2NSBP; CCU; 36415; 82436; 87086; 93005; 93010; 97110-GO; 97116-GO; 97161-GP; C9290; C9399; J0131; J0690; J1170; J1644; J2405; J2550; J3010; J7040; J7042

== ENCOUNTER 2016-12-10 12:10 | Observation (INO) | payer OTHER ==
[~2016-12-10 12:10] MED LIST changes: +DOCUSATE SODIU100 M3 PO; +PERCOCET 5-3251 EACH PO; +TRILEPTAL300 M1 PO; +TRILEPTAL600 M1 PO; +ZOFRAN4 M2 PO
--- NOTE | 2016-12-10 12:16 | NUR ---
PT ARRIVED BIBA VITALS COMPLETE, PLACED ON MONITOR, CHANGED INTO HOSPITAL ATTIRE. BLOOD WORK DRAWN
--- NOTE | 2016-12-10 12:30 | NUR ---
76F ARRIVES WEAK, LETHARGIC S/P FALL YESTERDAY AT HOME. UNWITNESSED BY FAMILY. STATED TO DAUGHTER YESTERDAY THAT SHE DIDN'T HIT HER HEAD. NOW FEELING MORE PAIN AND FATIGUE, TAKING ROXICODONE 15PRN FOR PAIN. DAUGHTER DENIES ANY DOSES TODAY. HAD RIGHT LOBECTOMY BY DR MALCOLM APPROX ONE MONTH AGO. LUNG SOUNDS INCREASED TO RIGHT SIDE. O2 SAT 90 %RA AND IMPROVED TO 95% ON 2LNC. DAUGHTER ENDORSES EXERTIONAL FATIGUE. ON ARRIVAL, PT IS UNRESPONSIVE TO VOICE OR TOUCH. RR EVEN AND UNLABORED. ACCUCHECK 216. PACED RATE 80'S ON CM, DAUGHTER STATES LCW PACEMKER IS NOT A DEFIB. NORMOTENSIVE. SKIN INTACT. RECTAL TEMP 97.4. ARRIVES WITH PREHOSP #18 LFA AND RECEIVED 200ML NS AND 4MG IVP ZOFRAN FOR N/V WHICH HAS SINCE IMPROVED. HAS RECENTLY BEEN C/O REFERRED PAIN BELOW RIGHT LUNG AREA INTO ABDOMEN.
--- NOTE | 2016-12-10 12:35 | NUR ---
DR DIAZ IN ROOM FOR EVALUATION
--- NOTE | 2016-12-10 12:45 | ED GI/GU/ABDOMINAL COMPLAINT ---
History of Present Illness General Chief Complaint: Abdominal Pain/Flank Pain Stated Complaint: BIBA FOR EVAL OF ABDOMINAL ISSUES/N/V Source: family, old records, EMS Exam Limitations: clinical condition Vital Signs & Intake/Output Vital Signs & Intake/Output Vital Signs Date Time Temp Pulse Resp B/P B/P Pulse O2 O2 Flow FiO2 Mean Ox Delivery Rate 12/10 1941 97.6 69 16 119/68 99 Nasal 2.0L Cannula 12/10 1904 96.5 69 18 102/58 99 Nasal 2.0L Cannula 12/10 1723 97.5 69 16 106/58 99 Nasal 2.0L Cannula 12/10 1519 97.6 75 16 140/67 99 Nasal 2.0L Cannula 12/10 1235 96 Nasal 2.0L Cannula 12/10 1225 97.4 83 14 94 Nasal 2.0L Cannula 12/10 1212 96.3 89 18 153/77 90 Room Air Allergies Coded Allergies: No Known Allergies (11/05/16) Reconcile Medications Bisacodyl (Dulcolax) 5 MG TABLET.DR 1 TAB PO LAXATIVE (Reported) Clonazepam 0.5 MG TABLET 1 TAB PO TID ANXIETY (Reported) Docusate Sodium 100 MG CAPSULE 100 MG PO DAILY PRN CONSTIPATION .stool softener available over the counter Dronabinol (Marinol) 2.5 MG CAPSULE 1 CAP PO DAILY PAIN (Reported) Gabapentin 300 MG CAPSULE 1 TAB PO TID PAIN (Reported) Ondansetron HCl (Zofran) 4 MG TABLET 1 TAB PO Q8P PRN NAUSEA (Reported) Oxcarbazepine (Trileptal) 600 MG TABLET 1 TAB PO AT BEDTIME trigeminal neuralgia (Reported) Oxcarbazepine (Trileptal) 300 MG TABLET 1 TAB PO BID trigeminal neuralgia ( Reported) at 6am and 1pm daily Oxycodone HCl 15 MG TABLET 1 TAB PO TID PAIN (Reported) Oxycodone HCl/Acetaminophen (Percocet 5-325 MG Tablet) 5 MG-325 MG TABLET 1-2 TAB PO Q4-6 PRN PRN pain control . Pantoprazole Sodium (Protonix) 40 MG TABLET.DR 1 TAB PO DAILY GERD (Reported) Sennosides (Senna) 8.6 MG TABLET 1 TAB PO DAILY PRN CONSTIPATION (Reported) Triage Note: 76F ARRIVES WEAK, LETHARGIC S/P FALL YESTERDAY AT HOME. UNWITNESSED BY FAMILY. STATED TO DAUGHTER YESTERDAY THAT SHE DIDN'T HIT HER HEAD. NOW FEELING MORE PAIN AND FATIGUE, TAKING ROXICODONE 15PRN FOR PAIN. DAUGHTER DENIES ANY DOSES TODAY. HAD RIGHT LOBECTOMY BY DR MALCOLM APPROX ONE MONTH AGO. LUNG SOUNDS INCREASED TO RIGHT SIDE. O2 SAT 90 %RA AND IMPROVED TO 95% ON 2LNC. DAUGHTER ENDORSES EXERTIONAL FATIGUE. ON ARRIVAL, PT IS UNRESPONSIVE TO VOICE OR TOUCH. RR EVEN AND UNLABORED. ACCUCHECK 216. PACED RATE 80'S ON CM, DAUGHTER STATES LCW PACEMKER IS NOT A DEFIB. NORMOTENSIVE. SKIN INTACT. RECTAL TEMP 97.4. ARRIVES WITH PREHOSP #18 LFA AND RECEIVED 200ML NS AND 4MG IVP ZOFRAN FOR N/V WHICH HAS SINCE IMPROVED. HAS RECENTLY BEEN C/O REFERRED PAIN BELOW RIGHT LUNG AREA INTO ABDOMEN. Triage Nurses Notes Reviewed? yes ? N Is pt currently ? No HPI: Patient brought in for increasing lethargy as well as nausea and vomiting. Patient has lung cancer and had a lobectomy last month. Patient has been on pain medications and followed by pain management since then. Her daughter has been giving her medications and was only giving it to her when the patient really needs it. The daughter states she saw her pain management doctor 2 days ago who told her daughter to make sure that she isn't 2 or 3 times a day at minimum. The daughter states she used only give it to her one to 2 times a day. Yesterday was the first day of 3 times a day. Since yesterday evening she has had increasing lethargy and was somnolent throughout the whole day today. Patient then became nauseous and vomited once in front of EMS. Patient received 4 mg of Zofran and was brought in for evaluation. Patient states that she feels nauseous still. Patient states that she has chronic abdominal pain ever since the surgery and she rates it currently at just to 2 out of 10. The pain is decreases with pain medication. There is no radiation. Pain is sharp and burning in nature. Patient's last bowel movement was yesterday. Daughter also states that yesterday while transferring from her wheelchair to her bed she slipped and fell onto the floor. There is no head injury. Past History Travel History Traveled to [place] past 21 day No Medical History Any Pertinent Medical History? 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 Hx Contributory? No Review of Systems Review of Systems Constitutional: Reports: see HPI, weakness. EENTM: Reports: no symptoms. Respiratory: Reports: no symptoms. Cardiovascular: Reports: no symptoms. GI: Reports: see HPI, abdominal pain, nausea, vomiting. Genitourinary: Reports: no symptoms. Musculoskeletal: Reports: no symptoms. Skin: Reports: no symptoms. Neurological/Psychological: Reports: see HPI. Hematologic/Endocrine: Reports: no symptoms. Immunologic/Allergic: Reports: no symptoms. All Other Systems: Reviewed and Negative Physical Exam Physical Exam General Appearance: well developed/nourished, lethargic, mild distress Head: atraumatic Eyes: Bilateral: PERRL, EOMI. Ears, Nose, Throat, Mouth: hearing grossly normal Neck: normal inspection, supple, full range of motion Respiratory: normal breath sounds, chest non-tender, no respiratory distress, lungs clear Cardiovascular: regular rate/rhythm, normal peripheral pulses Gastrointestinal: normal bowel sounds, soft, non-tender Back: normal inspection, normal range of motion Extremities: normal range of motion Neurologic/Psych: LETHARGIC AND SLOW TO RESPOND Core Measures ACS in differential dx? No Severe Sepsis Present: No Septic Shock Present: No Progress Differential Diagnosis: appendicitis, biliary colic, cholecystitis, gastritis, hepatitis, ischemic bowel, inflamm bowel dis, UTI/pyelo, ICH Plan of Care: Orders Procedure Date/time Status Regular Diet 12/11 B Active CBC WITHOUT DIFFERENTIAL 12/11 599 Active BASIC ELECTROLYTES PLUS BUN&CR 07/28 0600 Active Code Status 12/10 1814 Active Pathway - chart 12/10 1804 Active Pathway - chart 12/10 1801 Active House Staff 12/10 1801 Active Patient Data 12/10 1801 Active Code Status 12/10 1801 Complete Patient Data 12/[address] in observation 12/10 1715 Active Vital Signs 12/10 171 Active Code Status 12/10 1715 Complete Add-on Test (ER Only) 12/10 1652 Active [place] Coma Scale 12/10 1647 Active URINE DRUGS OF ABUSE 12/10 1510 Complete THYROID STIMULATING HORMONE 12/10 1252 Complete THYROXINE 12/10 1252 Complete URINALYSIS 12/10 1244 Complete TROPONIN LEVEL 12/10 1244 Complete LIPASE 12/10 1244 Complete COMPREHENSIVE METABOLIC PANEL 12/10 1244 Complete CBC WITHOUT DIFFERENTIAL 12/10 1244 Complete AMYLASE 12/10 1244 Complete EKG 12/10 1244 Active Intake & Output 12/10 1233 Active Lab Add-on Test 12/10 UNK Active VTE Mechanical Prophylaxis 12/10 UNK Active Current Medications Sig/Frances Start time Last Medication Dose Stop Time Status Admin Bisacodyl 5 MG DAILY 12/11 1000 AC (Dulcolax) Dronabinol 2.5 MG DAILY 12/11 1000 AC (Marinol) Oxcarbazepine 300 MG 0800 & 1300 12/11 0800 AC (Trileptal 150MG Tab) Gabapentin 300 MG TID 12/10 2200 AC (Neurontin) Oxcarbazepine 600 MG AT BEDTIME 12/10 2200 AC (Trileptal 150MG Tab) Senna 187 MG AT BEDTIME 12/10 2200 AC (Senokot) Acetaminophen 650 MG Q6P PRN 12/10 181 AC (Tylenol) Acetaminophen/ 1 TAB Q6P PRN 12/10 181 AC Hydrocodone Bitart (Vicodin) Ondansetron HCl 4 MG Q6P PRN 12/10 181 AC (Zofran) Oxycodone HCl 10 MG Q6P PRN 12/10 181 AC (Roxicodone) Enoxaparin Sodium 40 MG DAILY 12/10 1801 AC 12/10 (Lovenox) 1941 Laboratory Tests 12/10/16 1510: Urine Opiates Screen 202.00, Methadone Screen < 40, Barbiturate Screen < 60, Ur Phencyclidine Scrn < 6.00, Amphetamines Screen < 100, U Benzodiazepines Scrn 95, Urine Cocaine Screen < 50, Urine Cannabis Screen > 80.00 H, Urinalysis MOD H, Urine Color YEL, Urine Clarity CLEAR, Urine pH 6.0, Ur Specific [place] 1.020, Urine Protein TRACE H, Urine Ketones NEG, Urine Nitrite NEG, Urine Bilirubin NEG, Urine Urobilinogen 0.2, Ur Leukocyte Esterase NEG, Ur Microscopic SEDIMENT EXAMINED, Urine RBC 1-3, Urine WBC 1-3 H, Urine Bacteria FEW H, Granular Casts 1-3 H, Urine Hemoglobin NEG, Urine Glucose 250 H 12/10/16 1252: Anion Gap 11, Estimated GFR > 60, BUN/Creatinine Ratio 15.7, Glucose 220 H, Calcium 9.7, Total Bilirubin 0.4, AST 21, ALT 29, Alkaline Phosphatase 112, Troponin I < 0.01, Total Protein 6.0 L, Albumin 3.6, Globulin 2.4, Albumin/ Globulin Ratio 1.5, Amylase 67, Lipase 202, TSH 1.720, Thyroxine (T4) 5.9, Free T3 2.9, CBC w Diff MAN DIFF ORDERED, RBC 4.59, MCV 87.2, MCH 28.7, RDW 13.2, MPV 7.9, Gran % 80.7 H, Lymphocytes % 11.2 L, Monocytes % 5.4, Eosinophils % 2.2, Basophils % 0.5, Absolute Granulocytes 13.7 H, Segmented Neutrophils 81 H, Absolute Lymphocytes 1.9, Lymphocytes 10 L, Monocytes 3, Absolute Monocytes 0.9 H, Eosinophils 6 H, Absolute Eosinophils 0.4, Absolute Basophils 0.1, Platelet Estimate VERIFIED BY SMEAR, Normocytic RBCs VERIFIED, Normochromic RBCs VERIFIED , PUBS MCHC 33.0 Diagnostic Imaging: Viewed by Me: Radiology Read, CT Scan. Discussed w/RAD: Radiology Read, CT Scan. Radiology Impression: PATIENT: SIMI MACIAS PRESENT AGE: 76 PATIENT ACCOUNT NO: [id number] : 39 LOCATION: [facility] ORDERING PHYSICIAN: TATIANA DIAZ MD SERVICE DATE: 12/10/16124 EXAM TYPE: CAT - CT HEAD WO IV CONTRAST EXAMINATION: CT HEAD WITHOUT CONTRAST CLINICAL INFORMATION: Fall yesterday. Vomiting today. COMPARISON: No relevant prior imaging available. TECHNIQUE: Contiguous axial imaging was performed from the skull base to vertex without intravenous administration of contrast. DLP: 627.72 mGy-cm FINDINGS: There is an extra-axial lesion at the left petroclival junction best illustrated on axial image 17 of 64 series 2 that causes subtle distortion of the left ventrolateral azeem. No convincing evidence of acute intracranial hemorrhage. Bishop-white matter differentiation is grossly preserved and there is no evidence of acute territorial infarct. Lateral and third ventricles are normal and there is no hydrocephalus. The calvarium and skull base are intact. Mastoid air cells and middle ear cavities are well aerated. Visualized paranasal sinuses are well-aerated with the exception of mild disease involving ethmoid air cells. IMPRESSION: There is an ill-defined extra-axial lesion at the left petroclival junction that causes subtle distortion of the left ventrolateral azeem. Based on the hyperostotic changes along the left petrous ridge this finding is suspected represent a meningioma. A dedicated brain MRI without and with contrast is recommended for better anatomic characterization of this finding. No convincing evidence of acute intracranial hemorrhage or territorial infarct. DICTATED BY: NENA PATHAK MD DATE/TIME DICTATED:12/10/161334 CONTROL CLERK SUBASSEMBLY:MICHELE DATE/TIME TRANSCRIBED:1334 CONFIDENTIAL, DO NOT COPY WITHOUT APPROPRIATE AUTHORIZATION. < Electronically signed in Other Vendor System> SIGNED BY: NENA PATHKA MD 12/10/16 1344, PATIENT: SIMI MACIAS PRESENT AGE: 76 PATIENT ACCOUNT NO: [id number] : 39 LOCATION: [facility] ORDERING PHYSICIAN: TATIANA DIAZ MD SERVICE DATE: 12/10/16 EXAM TYPE: RAD - XRY-ABD MULTI VIEW W/PA CHEST EXAMINATION: XR ABDOMEN WITH PA CHEST CLINICAL INDICATION: Bowel obstruction with constipation and vomiting. COMPARISON: 2016 TECHNIQUE: KUB with upright chest FINDINGS: The bowel gas pattern is normal with gas and stool seen throughout the entire colon. There is no evidence of bowel obstruction. No free intraperitoneal air is seen. Compared to the previous study there's been no interval change. Once again seen is a bipolar pacemaker. There is a small right pleural effusion or area of pleural thickening present. IMPRESSION: No evidence of bowel obstruction. No interval change since the previous study. DICTATED BY: PURA JHAVERI MD DATE/TIME DICTATED:12/10/161335 CONTROL CLERK SUBASSEMBLY:MICHELE DATE/TIME TRANSCRIBED:12/10/161335 CONFIDENTIAL, DO NOT COPY WITHOUT APPROPRIATE AUTHORIZATION. <Electronically signed in Other Vendor System> SIGNED BY: PURA JHAVERI MD 12/10/16 1346, PATIENT: SIMI MACIAS PRESENT AGE: 76 PATIENT ACCOUNT NO: [id number] : 39 LOCATION: [facility] ORDERING PHYSICIAN: TATIANA DIAZ MD SERVICE DATE: 12/10/161424 EXAM TYPE: CAT - CT ABD & PELVIS W IV CONTRAST EXAMINATION: CT ABDOMEN AND PELVIS with CONTRAST CLINICAL INFORMATION: Abdominal pain. Vomiting. COMPARISON: CT scan abdomen pelvis 2010 TECHNIQUE: Helical CT scan of abdomen and pelvis. IV contrast: 25 mL Optiray 320 Oral contrast: None Reconstruction: Coronal and sagittal reformatted images performed at CT scanner by the technologist. FINDINGS: LUNG BASES: Moderate volume right pleural effusion. Atelectasis at dependent lung bases bilateral. Pacemaker lead in right ventricle. LIVER, GALLBLADDER, AND BILIARY TREE: 1 cm hepatic cyst in the right lobe of liver posteriorly adjacent to Morison's pouch. No suspicious liver lesion. No intrahepatic bile duct dilatation. The gallbladder is unremarkable with no evidence of radiopaque gallstones, gallbladder wall thickening, or obvious pericholecystic inflammatory changes. PANCREAS: The pancreas is atrophic. No inflammation or mass. SPLEEN: Spleen normal in size and contour. No focal lesion. ADRENAL GLANDS: Adrenal glands are normal in size. No focal mass. KIDNEYS AND URETERS: The kidneys are normal in size, shape, and attenuation. No hydronephrosis, hydroureter, or calculi seen. No perinephric stranding. BLADDER: Unremarkable. GASTROINTESTINAL TRACT: Moderate volume of stool throughout colon. No acute change of the bowel. No bowel obstruction. No bowel wall thickening or edema. Small bowel loops are unremarkable. Patient is status post appendectomy. MESENTERY: No focal inflammation. No free fluid. No free air. ABDOMINAL WALL: No significant hernia is appreciated. LYMPH NODES: Normal. VASCULAR: Normal enhancement of the portal vein and splenic vein. There is prominent gonadal veins and prominent veins along the pelvic sidewall bilateral. Scattered vascular wall calcifications of aorta without aneurysm. PELVIC VISCERA: Uterus is retroverted. No adnexal abnormality. OSSEOUS STRUCTURES: Multilevel degenerative spondylosis of spine. IMPRESSION: No acute abnormality CT scan abdomen pelvis. DICTATED BY: JESUS BLANKENSHIP MD DATE/TIME DICTATED:12/10/161547 CONTROL CLERK SUBASSEMBLY:MICHELE DATE/TIME TRANSCRIBED:12/10/161547 CONFIDENTIAL, DO NOT COPY WITHOUT APPROPRIATE AUTHORIZATION. <Electronically signed in Other Vendor System> SIGNED BY: JESUS BLANKENSHIP MD 12/10/16 1605 Initial ED EKG: SR WITH NSSTT CHANGES, NO ISCHEMIC CHANGES Prior EKG: unchanged Departure Departure Disposition: STILL A PATIENT Condition: Stable Clinical Impression Primary Impression: Lethargy Referrals: RAYRAY CHAWLA MD (PCP/Family) Departure Forms: Customer Survey General Discharge Information Observation Note Spoke With: WILDA CRUZ,MIKE Melgoza Physician Advisor Notified: EMILY CRUZ,TATIANA Melchor Place Patient In: Non-ED OBS Care Area Rationale for Observation: My rational for observation is as follows [HOLD PAIN MEDICATIONS AND BENZOS AND MONITOR MEDICAL STATUS, GENTAL HYDRATION].
--- NOTE | 2016-12-10 12:58 | NUR ---
LABS DRAWN AND SENT TO LAB (BLUE SSTX2 LAV VERAS PINK) AND PT TO XRAY AND THEN CT
[2016-12-10 13:05] LABS: ABSOLUTE BASOPHIL COUNT 0.1 /CUMM (0.0-0.2); ABSOLUTE EOSINOPHIL COUNT 0.4 /CUMM (0.0-0.7); ABSOLUTE GRANULOCYTE CT 13.7 /CUMM (1.4-6.5); ABSOLUTE LYMPH COUNT 1.9 /CUMM (1.2-3.4); ABSOLUTE MONOCYTE COUNT 0.9 /CUMM (0.10-0.60); BASOPHIL % 0.5 % (0.0-2.0); EOSINOPHIL % 2.2 % (0-5); GRANULOCYTE % 80.7 % (42.2-75.2); MEAN CORPUSCULAR HGB 28.7 PG (27.0-31.0); MEAN CORPUSCULAR VOLUME 87.2 FL (81.0-99.0); MEAN PLATELET VOLUME 7.9 FL (7.4-10.4); PLATELET COUNT 384 /CUMM (130-400); RBC DISTRIBUTION WIDTH 13.2 % (11.5-14.5); RED BLOOD CELL CT 4.59 /CUMM (4.20-5.40)
--- NOTE | 2016-12-10 13:23 | NUR ---
PT WAS ABLE TO SLOWLY OPEN EYES CUSTODIAL TO VOICE COMMAND. WHEN ASKING IF NAUSEA REMAINS SHE NODS SLIGHTLY. WHEN ASKED IF SHE WOULD LIKE MORE MEDICINE FOR NAUSEA SHE AGAIN NODS. MEDICATED WITH ZOFRAN PER eMAR AND EXTRA BLANKETS PROVIDED FOR COMFORT. DAUGHTER AWARE OF PLAN AND NEED FOR URINE SOON
--- NOTE | 2016-12-10 13:44 | CT SCAN REPORT ---
EXAMINATION: CT HEAD WITHOUT CONTRAST CLINICAL INFORMATION: Fall yesterday. Vomiting today. COMPARISON: No relevant prior imaging available. TECHNIQUE: Contiguous axial imaging was performed from the skull base to vertex without intravenous administration of contrast. DLP: 627.72 mGy-cm FINDINGS: There is an extra-axial lesion at the left petroclival junction best illustrated on axial image 17 of 64 series 2 that causes subtle distortion of the left ventrolateral azeem. No convincing evidence of acute intracranial hemorrhage. Bishop-white matter differentiation is grossly preserved and there is no evidence of acute territorial infarct. Lateral and third ventricles are normal and there is no hydrocephalus. The calvarium and skull base are intact. Mastoid air cells and middle ear cavities are well aerated. Visualized paranasal sinuses are well-aerated with the exception of mild disease involving ethmoid air cells. IMPRESSION: There is an ill-defined extra-axial lesion at the left petroclival junction that causes subtle distortion of the left ventrolateral azeem. Based on the hyperostotic changes along the left petrous ridge this finding is suspected represent a meningioma. A dedicated brain MRI without and with contrast is recommended for better anatomic characterization of this finding. No convincing evidence of acute intracranial hemorrhage or territorial infarct.
--- NOTE | 2016-12-10 13:46 | RADIOLOGY REPORT ---
EXAMINATION: XR ABDOMEN WITH PA CHEST CLINICAL INDICATION: Bowel obstruction with constipation and vomiting. COMPARISON: 11/23/2016 TECHNIQUE: KUB with upright chest FINDINGS: The bowel gas pattern is normal with gas and stool seen throughout the entire colon. There is no evidence of bowel obstruction. No free intraperitoneal air is seen. Compared to the previous study there's been no interval change. Once again seen is a bipolar pacemaker. There is a small right pleural effusion or area of pleural thickening present. IMPRESSION: No evidence of bowel obstruction. No interval change since the previous study.
[2016-12-10] MEDS ORDERED: MARINOL2.5 MG PO (14:20)
--- NOTE | 2016-12-10 15:18 | NUR ---
PT STRAIGHT CATH'ED FOR 300CC CONCENTRATED YELLOW URINE. TRIO OBTAINED AND STERILE TECHNIQUE MAINTAINED. PT TOLERATED WELL. REMAINS STABLE AND AFEBRILE. LETHARGIC AND UNABLE TO MOVE INDEPENDENTLY
--- NOTE | 2016-12-10 15:24 | NUR ---
PT TO CT VIA STRETCHER ON
--- NOTE | 2016-12-10 16:05 | CT SCAN REPORT ---
EXAMINATION: CT ABDOMEN AND PELVIS with CONTRAST CLINICAL INFORMATION: Abdominal pain. Vomiting. COMPARISON: CT scan abdomen pelvis 01/16/2011 TECHNIQUE: Helical CT scan of abdomen and pelvis. IV contrast: 25 mL Optiray 320 Oral contrast: None Reconstruction: Coronal and sagittal reformatted images performed at CT scanner by the technologist. FINDINGS: LUNG BASES: Moderate volume right pleural effusion. Atelectasis at dependent lung bases bilateral. Pacemaker lead in right ventricle. LIVER, GALLBLADDER, AND BILIARY TREE: 1 cm hepatic cyst in the right lobe of liver posteriorly adjacent to Morison's pouch. No suspicious liver lesion. No intrahepatic bile duct dilatation. The gallbladder is unremarkable with no evidence of radiopaque gallstones, gallbladder wall thickening, or obvious pericholecystic inflammatory changes. PANCREAS: The pancreas is atrophic. No inflammation or mass. SPLEEN: Spleen normal in size and contour. No focal lesion. ADRENAL GLANDS: Adrenal glands are normal in size. No focal mass. KIDNEYS AND URETERS: The kidneys are normal in size, shape, and attenuation. No hydronephrosis, hydroureter, or calculi seen. No perinephric stranding. BLADDER: Unremarkable. GASTROINTESTINAL TRACT: Moderate volume of stool throughout colon. No acute change of the bowel. No bowel obstruction. No bowel wall thickening or edema. Small bowel loops are unremarkable. Patient is status post appendectomy. MESENTERY: No focal inflammation. No free fluid. No free air. ABDOMINAL WALL: No significant hernia is appreciated. LYMPH NODES: Normal. VASCULAR: Normal enhancement of the portal vein and splenic vein. There is prominent gonadal veins and prominent veins along the pelvic sidewall bilateral. Scattered vascular wall calcifications of aorta without aneurysm. PELVIC VISCERA: Uterus is retroverted. No adnexal abnormality. OSSEOUS STRUCTURES: Multilevel degenerative spondylosis of spine. IMPRESSION: No acute abnormality CT scan abdomen pelvis.
--- NOTE | 2016-12-10 16:40 | NUR ---
DAUGHTER SEEKING OUT THIS NURSE MULTIPLE TIMES TO MEDICATE PT WITH PO MEDS AND NARCOTICS. REMINDED THAT PT IS BARELY AROUSABLE AND IS A HIGH RISK FOR ASPIRATION. ALSO, DUE TO LETHARGY AND MINIMAL LEVEL OF REPONSIVENESS, THIS RN IS NOT COMFORTABLE MEDICATING HER WITH NARCOTICS AT THIS TIME
--- NOTE | 2016-12-10 17:20 | NUR ---
PT REMAINS SOMNOLENT, AND BARELY ABLE TO OPEN EYES TO VERBAL STIMULI. DEMONSTRATES UNLABORED RESPIRATORY EFFORT, EQUAL CHEST RISE AND FALL AND O2 SAT MONITORING MAINTAINED, CURRENTLY 99%2LNC. REMAINS AFEBRILE. SINUS RATE 70 WITH LCW PACEMAKER. UNABLE TO MEDICATE OR FEED AT THIS TIME. WILL CONT TO MONITOR.
--- NOTE | 2016-12-10 17:22 | History & Physical ---
AKSHAT GEORGES 12/10/16 1721: General Information and HPI MD Statement: I have seen and personally examined SIMI MACIAS and documented this H&P. The patient is a 76 year old F who presented with a patient stated chief complaint of [lethargy and vomiting ]. 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 Patient was last admitted to [facility] for her lobectomy and has since been doing well, independent with ambulation requiring occasional assistance. Daughter reports noticeable fatigue with minimal exertion over the past few weeks. She has had a few medication adjustments during this time for pain management associated with her malignancy, initially on Vicodin 5 mg which was transitioned to oxycodone 15 mg tabs (half a tab BID, 1 full tab at night). Her daughter reports complaints of nonspecific abdominal pain and right-sided chest wall discomfort attributed to her surgery. Last night she was noticeably more lethargic and suffered a mechanical fall out of bed with no reports of preceding dizziness or LOC. This morning she had multiple episodes of nonbloody vomitus prompting them to come to the ED. She denies any recent complaints of shortness of breath, productive cough, fevers, chills, urinary/bladder changes. Allergies/Medications Allergies: Coded Allergies: No Known Allergies (11/05/16) Home Med list Bisacodyl (Dulcolax) 5 MG TABLET.DR 1 TAB PO LAXATIVE (Reported) Clonazepam 0.5 MG TABLET 1 TAB PO TID ANXIETY (Reported) Docusate Sodium 100 MG CAPSULE 100 MG PO DAILY PRN CONSTIPATION .stool softener available over the counter Dronabinol (Marinol) 2.5 MG CAPSULE 1 CAP PO DAILY PAIN (Reported) Gabapentin 300 MG CAPSULE 1 TAB PO TID PAIN (Reported) Ondansetron HCl (Zofran) 4 MG TABLET 1 TAB PO Q8P PRN NAUSEA (Reported) Oxcarbazepine (Trileptal) 600 MG TABLET 1 TAB PO AT BEDTIME trigeminal neuralgia (Reported) Oxcarbazepine (Trileptal) 300 MG TABLET 1 TAB PO BID trigeminal neuralgia ( Reported) at 6am and 1pm daily Oxycodone HCl 15 MG TABLET 1 TAB PO TID PAIN (Reported) Oxycodone HCl/Acetaminophen (Percocet 5-325 MG Tablet) 5 MG-325 MG TABLET 1-2 TAB PO Q4-6 PRN PRN pain control . 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 Psychosocial History Who Do You Live With? child Services at Home: None Primary Language: Eritrean Functional Ability ADLs Needs Assist: dressing, eating, toileting, bathing. Ambulation: walker IADLs Needs Assist: shopping, housework, finances, food prep, telephone, transportation, medication admin. Review of Systems Review of Systems Constitutional: Reports: see HPI. EENTM: Reports: see HPI. Cardiovascular: Reports: see HPI. Respiratory: Reports: see HPI. GI: Reports: see HPI. Genitourinary: Reports: no symptoms. Musculoskeletal: Reports: see HPI. Skin: Reports: no symptoms. Neurological/Psychological: Reports: no symptoms. Exam & Diagnostic Data Last 24 Hrs of Vital Signs/I&O Vital Signs Date Time Temp Pulse Resp B/P B/P Pulse O2 O2 Flow FiO2 Mean Ox Delivery Rate 12/10 1723 97.5 69 16 106/58 99 Nasal 2.0L Cannula 12/10 1519 97.6 75 16 140/67 99 Nasal 2.0L Cannula 12/10 1235 96 Nasal 2.0L Cannula 12/10 1225 97.4 83 14 94 Nasal 2.0L Cannula 12/10 1212 96.3 89 18 153/77 90 Room Air Intake & Output 12/10 1600 12/10 0800 12/10 0000 Intake Total 1000 Output Total 300 Balance 700 Intake, IV 1000 Output, Urine 300 Patient 146 lb Weight Weight Reported by Patient Measurement Method Physical Exam General Appearance patient is laying in bed in no acute distress. patient response to loud verbal and tactile commands, spontaneous limb movements. Skin No Breakdown, No Significant Lesion Skin Temp/Moisture Exam: Warm/Dry Sepsis Skin Exam (color): Normal for Ethnicity HEENT Mucous Membr. moist/pink Cardiovascular Regular Rate, Normal S1, Normal S2, left upper chest wall pacemaker in place with no evidence of erythema or fluctuance around the site Lungs Normal Air Movement, diminished breath sounds in the basilar regions bilaterally Abdomen Normal Bowel Sounds, Soft, patient is noted to exhibit mild discomfort with deep palpation epigastric region Neurological Normal Tone, spontaneous movement of all extremities Extremities No Edema, Normal Pulses Vascular Pulses Symmetrical Last 24 Hrs of Labs/Km: Laboratory Tests 12/10/16 1510: Urine Opiates Screen 202.00, Methadone Screen < 40, Barbiturate Screen < 60, Ur Phencyclidine Scrn < 6.00, Amphetamines Screen < 100, U Benzodiazepines Scrn 95, Urine Cocaine Screen < 50, Urine Cannabis Screen > 80.00 H, Urinalysis MOD H, Urine Color YEL, Urine Clarity CLEAR, Urine pH 6.0, Ur Specific Rufus 1.020, Urine Protein TRACE H, Urine Ketones NEG, Urine Nitrite NEG, Urine Bilirubin NEG, Urine Urobilinogen 0.2, Ur Leukocyte Esterase NEG, Ur Microscopic SEDIMENT EXAMINED, Urine RBC 1-3, Urine WBC 1-3 H, Urine Bacteria FEW H, Granular Casts 1-3 H, Urine Hemoglobin NEG, Urine Glucose 250 H 12/10/16 1252: Anion Gap 11, Estimated GFR > 60, BUN/Creatinine Ratio 15.7, Glucose 220 H, Calcium 9.7, Total Bilirubin 0.4, AST 21, ALT 29, Alkaline Phosphatase 112, Troponin I < 0.01, Total Protein 6.0 L, Albumin 3.6, Globulin 2.4, Albumin/ Globulin Ratio 1.5, Amylase 67, Lipase 202, CBC w Diff MAN DIFF ORDERED, RBC 4.59, MCV 87.2, MCH 28.7, RDW 13.2, MPV 7.9, Gran % 80.7 H, Lymphocytes % 11.2 L, Monocytes % 5.4, Eosinophils % 2.2, Basophils % 0.5, Absolute Granulocytes 13.7 H, Segmented Neutrophils 81 H, Absolute Lymphocytes 1.9, Lymphocytes 10 L, Monocytes 3, Absolute Monocytes 0.9 H, Eosinophils 6 H, Absolute Eosinophils 0.4, Absolute Basophils 0.1, Platelet Estimate VERIFIED BY SMEAR, Normocytic RBCs VERIFIED, Normochromic RBCs VERIFIED, PUBS MCHC 33.0 Diagnostic Data EKG Results Sinus rhythm, HR 82 BPM. Borderline T abnormalities, anterior leads. CA interval 176 QTC [address]: There is an ill-defined extra-axial lesion at the left petroclival junction that causes subtle distortion of the left ventrolateral azeem. Based on the hyperostotic changes along the left petrous ridge this finding is suspected represent a meningioma. A dedicated brain MRI without and with contrast is recommended for better anatomic characterization of this finding. No convincing evidence of acute intracranial hemorrhage or territorial infarct. CT ABDOMEN/PELVIS WITH IV CONTRAST: No acute abnormality CT scan abdomen pelvis. 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 VS on admission: BP 153/77, HR 89, RR 18, SPO2 90% on 2 LNC, T 96.3 Pertinent labs on admission: WBC 17.0, H&H 13.2/40.0, sodium 127, potassium 4.0, chloride 92, carbonate 24, BUN/CR 11/0.7, glucose 220 UA: 1-3 WBCs, few bacteria, 1-[address]s of abdomen, pelvis and head as indicated above Problem list: 1. Lethargy/altered mental status 2. Leukocytosis 3. Hyponatremia 4. History of lung adenocarcinoma S/B RUL lobectomy 5. Pain management 6. History of trigeminal neuralgia Plan: * Admit under observation to general medicine for management of lethargy/altered mental status. Etiology is likely secondary to narcotic use. We'll hold tonight dose of narcotics, reintroduce in the morning while assessing for interval improvement. * Leukocytosis: Possibly reactive in the context of vomiting. However, DDX of aspiration pneumonia would not be unreasonable. If evidence of fever, would panculture and start patient on Unasyn. Incentive spirometry and TRCs in the a.m sudhakar with her history of lobectomy * Hyponatremia with sodium of 127 baseline. 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 We'll defer any additional workup at this time * History of trigeminal neurology or managed on oxcarbazepine 300 mg at 0800 hrs., 1400 hrs., 600 mg at bedtime. Will continue current dose as patient's daughter indicates previous attempts at dose adjustment have resulted in significant neuropathic pain. Continue with gabapentin 300 mg TID * Regular diet * DVT prophylaxis: Lovenox 40 mg subcutaneous * DNR/DNI As Ranked By This Provider Problem List: 1. Altered mental status 2. Lethargy Core Measures/Miscellaneous Acute Coronary Syndrome ACS Diagnosis: No Cerebrovascular Accident CVA/TIA Diagnosis: No Congestive Heart Failure CHF Diagnosis: No VTE (View Protocol) VTE Risk Factors: Age > 40, Cancer/chemo/oth therapy No Mech VTE prophylaxis d/t: No contraindications No VTE Pharm Prophylaxis d/t: No contraindications VTE Diagnosis: No VTE Type: NONE VTE Confirmed by (Test): NONE Sepsis (View Protocol) Severe Sepsis Present: No Septic Shock Septic Shock Present: No Miscellaneous Documentation Attending Case Discussed With: WILDA CRUZ,MIKE Melgoza Primary Care Physician: RAYRAY CHAWLA MD Patient sees these Specialists Dr Talavera Level of Patient Care: General Medicine Resident Review Statement Resident Statement: examined this patient, discussed with engineer internship, agreed with engineer internship, discussed with family, reviewed EMR data (avail), discussed with nursing , reviewed images LEON MANNING MD 12/10/16 8693: Attending Review Statement Attending Statement Attending Statement: examined this patient, discuss w/resident/PA/CAT SCAN TECHNOLOGIST, agreed w/resident/PA/CAT SCAN TECHNOLOGIST, reviewed EMR data (avail) Attending Assessment/Plan: 76F PMH trigeminal neuralgia on Trileptal and Neurontin, bradycardia s/p PPM September 2016, brain meningioma s/p gamma knife, recently diagnosed stage 2 right sided adenocarcinoma of the lung s/p partial lung resection in October 2016 presenting with 1 day of lethargy, with mechanical fall yesterday without loss of consciousness or head injury. Patient has had severe trigeminal neuralgia for 3 years, and has had right chest and right abdominal pain ever since her lung resection surgery. Has been taking Oxycodone 15mg TID with or without Percocet since then. Yesterday she was sleepy, fell out of bed. Today she has been sleepy all day, vomited a few times this morning. Currently somnolent but rousable. Neuro exam normal, CT head normal, labs show WBC 17 and sodium 127. Plan - 23 hour observation in general medicine - Neuro checks - Hold opioids, gabapentin, trileptal - May restart Gabapentin and Trileptal when mental status improves (per daughter , when patient does not get them for a period of time her neuralgia becomes unbearable) - Consider repeat head CT and neurology consult if no improvement in mental status - Monitor sodium - Check TSH - Avoid sedatives - Monitor for signs of aspiration - Aspiration precautions - DVT PPx Observation Initial Note - I have personally examined SIMI MACIAS on 12/10/16 at 2157. The disposition of SIMI MACIAS is uncertain at this time and before a determination can be made, she requires a period of observation for the following reasons lethargy likely secondary to medications, can be monitored with medications on hold and if improvement in lethargy can be discharged tomorrow with altered medication regimen.
--- NOTE | 2016-12-10 18:54 | NUR ---
Emergency Dept UC Admit Note: To be admitted to [facility] by WILDA with LETHARGIC as the diagnosis, to /OBSERVATION location. Nursing Manufacturing Controller and admitting notified 12/10/16 at 1730 PT WILL GO TO ROOM 213-1
--- NOTE | 2016-12-10 19:00 | NUR ---
FLOOR NURSE TONIA AWAITING CALLBACK FOR REPORT [id number].
--- NOTE | 2016-12-10 19:41 | NUR ---
medicated with lovenox per Emar and indication explained to daughter. Updated on bed assignment, awaiting call back from receiving RN
--- NOTE | 2016-12-10 20:40 | NUR ---
REPORT GIVEN TO RECEIVING RN
[2016-12-10 21:51] VITALS: BP 118/72
--- NOTE | 2016-12-10 22:00 | NUR ---
PT ARRIVED FROM ER VIA STRETCHER, LETHARGIC, OPENING EYES TO VERBAL STIMULI, ANSWERING WITH 1-2 WORD ANSWERS. O2 2L NC IN PLACE, VSS, LUNGS DIMINISHED THROUGHOUT.PT WITH HX OF FALL AT HOME FROM BED, NO INJURY NOTED. BED ALARM PLACED FOR SAFETY
[2016-12-11 06:53] VITALS: BP 132/82
--- NOTE | 2016-12-11 07:31 | PN- Housestaff ---
See Addendum Subjective Follow-up For: Lethargy, failure to thrive Subjective: Admitted yesterday. No overnight events. She feels depressed this morning, no physical complaints. Hasn't had good appetite. She is very upset that she used tob e very healthy, going to the gym, and now she her health is not good enough to do these things. Otherwise, no complaints. Review of Systems Constitutional: Reports: no symptoms. EENTM: Reports: no symptoms. Cardiovascular: Reports: no symptoms. Respiratory: Reports: no symptoms. Gastrointestinal: Reports: see HPI. Genitourinary: Reports: no symptoms. Musculoskeletal: Reports: no symptoms. Skin: Reports: no symptoms. Neurological/Psychological: Reports: see HPI. Hematologic/Endocrine: Reports: no symptoms. Immunologic/Allergic: Reports: no symptoms. Objective Last 24 Hrs of Vital Signs/I&O Vital Signs Date Time Temp Pulse Resp B/P B/P Pulse O2 O2 Flow FiO2 Mean Ox Delivery Rate 12/11 0653 98.4 78 20 132/82 97 Nasal 2.0L Cannula 12/11 0000 Nasal 2.0L Cannula 12/10 2200 Nasal 2.0L Cannula 12/10 2151 97.7 69 20 118/72 100 Nasal 2.0L Cannula 12/10 1941 97.6 69 16 119/68 99 Nasal 2.0L Cannula 12/10 1904 96.5 69 18 102/58 99 Nasal 2.0L Cannula 12/10 1723 97.5 69 16 106/58 99 Nasal 2.0L Cannula 12/10 1519 97.6 75 16 140/67 99 Nasal 2.0L Cannula 12/10 1235 96 Nasal 2.0L Cannula 12/10 1225 97.4 83 14 94 Nasal 2.0L Cannula 12/10 1212 96.3 89 18 153/77 90 Room Air Intake & Output 12/11 0800 12/11 0000 12/10 1600 Intake Total 1000 Output Total 300 300 Balance -300 700 Intake, IV 1000 Output, Urine 300 300 Patient 146 lb 146 lb Weight Weight Reported by Patient Measurement Method Physical Exam General Appearance: Alert, Oriented X3, Cooperative, No Acute Distress Cardiovascular: Regular Rate, Normal S1, Normal S2 Lungs: Clear to Auscultation Abdomen: Normal Bowel Sounds, Soft, No Tenderness Extremities: No Edema Current Medications: Current Medications Sig/Frances Start time Last Medication Dose Route Stop Time Status Admin Acetaminophen 650 MG Q6P PRN 12/10 1815 AC PO Acetaminophen/ 1 TAB Q6P PRN 12/10 1815 DC 12/11 Hydrocodone Bitart PO 0055 Bisacodyl 5 MG DAILY 12/11 1000 AC PO Dronabinol 2.5 MG DAILY 12/11 1000 AC PO Enoxaparin Sodium 0 .STK-MED ONE 12/10 1944 DC SC Enoxaparin Sodium 40 MG DAILY 12/10 1801 AC 12/10 SC 1941 Gabapentin 300 MG TID 12/10 2200 DC 12/11 PO 0051 Ondansetron HCl 4 MG Q6P PRN 12/10 1815 AC IV Ondansetron HCl 4 MG ONCE ONE 12/10 1330 DC 12/10 IV 12/10 1331 1330 Ondansetron HCl 0 .STK-MED ONE 12/10 1325 DC .ROUTE Oxcarbazepine 300 MG 0800 & 1300 12/11 0800 CAN PO Oxcarbazepine 600 MG AT BEDTIME 12/10 2200 AC 12/11 PO 0052 Oxycodone HCl 10 MG Q6P PRN 12/10 1815 DC PO Senna 187 MG AT BEDTIME 12/10 2200 AC 12/11 PO 0052 Sodium Chloride 1,000 ML BOLUS ONE 12/10 1330 DC 12/10 IV 12/10 1429 1330 Last 24 Hrs of Lab/Km Results Last 24 Hrs of Labs/Mics: Laboratory Tests 12/10/16 1510: Urine Opiates Screen 202.00, Methadone Screen < 40, Barbiturate Screen < 60, Ur Phencyclidine Scrn < 6.00, Amphetamines Screen < 100, U Benzodiazepines Scrn 95, Urine Cocaine Screen < 50, Urine Cannabis Screen > 80.00 H, Urinalysis MOD H, Urine Color YEL, Urine Clarity CLEAR, Urine pH 6.0, Ur Specific [place] 1.020, Urine Protein TRACE H, Urine Ketones NEG, Urine Nitrite NEG, Urine Bilirubin NEG, Urine Urobilinogen 0.2, Ur Leukocyte Esterase NEG, Ur Microscopic SEDIMENT EXAMINED, Urine RBC 1-3, Urine WBC 1-3 H, Urine Bacteria FEW H, Granular Casts 1-3 H, Urine Hemoglobin NEG, Urine Glucose 250 H 12/10/16 1252: Anion Gap 11, Estimated GFR > 60, BUN/Creatinine Ratio 15.7, Glucose 220 H, Calcium 9.7, Total Bilirubin 0.4, AST 21, ALT 29, Alkaline Phosphatase 112, Troponin I < 0.01, Total Protein 6.0 L, Albumin 3.6, Globulin 2.4, Albumin/ Globulin Ratio 1.5, Amylase 67, Lipase 202, TSH 1.720, Thyroxine (T4) 5.9, Free T3 2.9, CBC w Diff MAN DIFF ORDERED, RBC 4.59, MCV 87.2, MCH 28.7, RDW 13.2, MPV 7.9, Gran % 80.7 H, Lymphocytes % 11.2 L, Monocytes % 5.4, Eosinophils % 2.2, Basophils % 0.5, Absolute Granulocytes 13.7 H, Segmented Neutrophils 81 H, Absolute Lymphocytes 1.9, Lymphocytes 10 L, Monocytes 3, Absolute Monocytes 0.9 H, Eosinophils 6 H, Absolute Eosinophils 0.4, Absolute Basophils 0.1, Platelet Estimate VERIFIED BY SMEAR, Normocytic RBCs VERIFIED, Normochromic RBCs VERIFIED , PUBS MCHC 33.0 Assessment/Plan Assessment: 76 y/o AA lady with a PMH of trigeminal neuralgia, meningioma S/P Gamma knife therapy, lung adenocarcinoma diagnosed in febrile 2016 underwent right upper lobe lobectomy with mediastinal lymph node dissection on 11/05/2016, junctional bradycardia/sinus bradycardia, 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 #Lethargy, vomitting, failure to thrive: On presentation, she had altered mental status that was thought to be likely secondary to narcotic use. This morning, she is alert and oriented 3 and is no longer nauseous or vomiting. UA negative , tox screen positive for opiates. Imaging negative for any acute process. Vitals have been stable, labs normal except for hyponatremia and leukocytosis. However she doesn't seem to be infected as she is not febrile. Talking to her this morning, she seems very depressed. She is very upset about her current state of health given how healthy will she was just a short time ago. She was amenable to talking to psych. It is possible that her symptoms are secondary to a suicide attempt or depression. -Continue to monitor for potential infection source -Continue dronabinol, bisacodyl, senna -Continue oxcarbazepine, ondansetron, Tylenol -Urine lytes -Follow up with GI, urine cultures. Consider further culturing if fever develops. -No antibiotics indicated at this time. -Consider psych consult DVT prophylaxis with enoxaparin DNR/DNI Problem List: 1. Hyponatremia 2. Lethargy Pain Ratin Pain Location: No pain Pain Goal: Remain pain free Pain Plan: see a/p Tomorrow's Labs & Rationales: cbc, bep
[2016-12-11 08:35] LABS: ABSOLUTE BASOPHIL COUNT 0 /CUMM (0.0-0.2); ABSOLUTE EOSINOPHIL COUNT 0.4 /CUMM (0.0-0.7); ABSOLUTE MONOCYTE COUNT 0.5 /CUMM (0.10-0.60)
[2016-12-11 09:03] LABS: ABSOLUTE LYMPH COUNT 1.2 /CUMM (1.2-3.4); BASOPHIL % 0.6 % (0.0-2.0); EOSINOPHIL % 6.5 % (0-5); GRANULOCYTE % 65.4 % (42.2-75.2); HEMATOCRIT 36.9 % (37-47); MEAN CORPUSCULAR HGB 28.8 PG (27.0-31.0); MEAN CORPUSCULAR HGB CONC 33.1 G/DL (33.0-37.0); MEAN CORPUSCULAR VOLUME 87.2 FL (81.0-99.0); MEAN PLATELET VOLUME 8.1 FL (7.4-10.4); PLATELET COUNT 316 /CUMM (130-400); RBC DISTRIBUTION WIDTH 13.1 % (11.5-14.5); RED BLOOD CELL CT 4.23 /CUMM (4.20-5.40)
[2016-12-11 09:23] LABS: WHITE BLOOD CELL COUNT 6.2 /CUMM (4.8-10.8)
--- NOTE | 2016-12-11 13:57 | Cons- Psychiatry ---
Psychiatric Consult Date of Consult: 12/11/16 Reason for Consult: possible SI History of Present Illness: Client is a 76 year old female who came to the hospital with lethargy, nausea, and vomiting. She had fallen one day prior, no head injury. She has lung CA and had a lobectomy in October 2016. Since that time she has been on pain medication, which client states was increased on the day of her fall. Client reported to medical team that she was feeling depressed. Client denies any history of mental health or substance use treatment. Denies psychiatric hospitalizations. She denies any family history of mental illness, substance use, or suicide. She is a former smoker (26 years without use). 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 Today, client states she feels intermittently sad since being diagnosed with CA. She reports her health is "ok". She denies pain. Reports her daughter manages her medications. She denies taking more medications than being prescribed. No guns in the home. Denies suicidal ideation, intent, or plan. Denies history of suicide attempts. Reports she is a "strong woman" and aspires to be 89 years old. She hopes to meet her future great great grandchildren one day. Her children are a strong protective factor. She denies homicidal ideation. She denies psychosis presently or historically. She denies rosey presently or historically. 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 Granddaughter who is present with cleint permission reports that she feels client is appropriately sad since having CA. Denies any concerns for her safety. Allergies: Coded Allergies: No Known Allergies (11/05/16) Current Medications: Current Medications Sig/Frances Start time Last Medication Dose Route Stop Time Status Admin Acetaminophen 650 MG Q6P PRN 12/10 1815 AC PO Acetaminophen/ 1 TAB Q6P PRN 12/10 1815 DC 12/11 Hydrocodone Bitart PO 0055 Bisacodyl 5 MG DAILY 12/11 1000 AC 12/11 PO 1035 Dronabinol 2.5 MG DAILY 12/11 1000 AC 12/11 PO 1047 Enoxaparin Sodium 0 .STK-MED ONE 12/10 1944 DC SC Enoxaparin Sodium 40 MG DAILY 12/10 1801 AC 12/11 SC 1037 Gabapentin 300 MG TID 12/10 2200 DC 12/11 PO 0051 Ondansetron HCl 4 MG Q6P PRN 12/10 1815 AC IV Oxcarbazepine 300 MG 0800,1400 12/11 1400 AC PO Oxcarbazepine 300 MG 0600,1200 12/11 1200 DC 12/11 PO 1033 Oxcarbazepine 300 MG 0800 & 1300 12/11 0800 CAN PO Oxcarbazepine 600 MG AT BEDTIME 12/10 2200 AC 12/11 PO 0052 Oxycodone HCl 10 MG Q6P PRN 12/10 1815 DC PO Senna 187 MG AT BEDTIME 12/10 2200 AC 12/11 PO 0052 Sodium Chloride 1,000 ML BOLUS ONE 12/10 1330 DC 12/10 IV 12/10 1429 1330 Past History Past Medical History Neurological: trigeminal neuralgia EENT: NONE Cardiovascular: hypertension, LCW PACER Respiratory: adenocarcinoma of lung Gastrointestinal: NONE Hepatic: NONE Renal: NONE Musculoskeletal: NONE Psychiatric: NONE Endocrine: NONE Blood Disorders: NONE Cancer(s): 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 Substance Use/Abuse History Drug Use/Abuse Substances Used/Abused No Substance Abuse Treatment Substance Abuse Treatment Past Substance Abuse [place] No Assessment/Plan Mental Status Orientation: Person, Place, Situation Affect: Appropriate Speech: Soft Mental Status Exam: Client seen in hospital bed with family at bedside. She is oriented x4. She is unsure how many grandchildren she has, family members report 6 living grandchildren, 1 . She is unsure how many great grandchildren she has, family members report 12. Her mood is "mediocre". Her eye contact is fair. Denies /VH/PI. Thought process goal oriented. Lab Results: Laboratory Tests 12/11 12/10 0720 1510 Chemistry Sodium (137 - 145 mmol/L) 131 L Potassium (3.5 - 5.1 mmol/L) 4.6 Chloride (98 - 107 mmol/L) 95 L Carbon Dioxide (22 - 30 mmol/L) 29 Anion Gap (5 - 16) 7 BUN (7 - 17 mg/dL) 7 Creatinine (0.5 - 1.0 mg/dL) 0.7 Estimated GFR (>60 ml/min) > 60 BUN/Creatinine Ratio (7 - 25 %) 10.0 Hematology CBC w Diff NO MAN DIFF REQ WBC (4.8 - 10.8 /CUMM) 6.2 RBC (4.20 - 5.40 /CUMM) 4.23 Hgb (12.0 - 16.0 G/DL) 12.2 Hct (37 - 47 %) 36.9 L MCV (81.0 - 99.0 FL) 87.2 MCH (27.0 - 31.0 PG) 28.8 RDW (11.5 - 14.5 %) 13.1 Plt Count (130 - 400 /CUMM) 316 MPV (7.4 - 10.4 FL) 8.1 Gran % (42.2 - 75.2 %) 65.4 Lymphocytes % (20.5 - 51.1 %) 19.0 L Monocytes % (1.7 - 9.3 %) 8.5 Eosinophils % (0 - 5 %) 6.5 H Basophils % (0.0 - 2.0 %) 0.6 Absolute Granulocytes (1.4 - 6.5 /CUMM) 4.0 Absolute Lymphocytes (1.2 - 3.4 /CUMM) 1.2 Absolute Monocytes (0.10 - 0.60 /CUMM) 0.5 Absolute Eosinophils (0.0 - 0.7 /CUMM) 0.4 Absolute Basophils (0.0 - 0.2 /CUMM) 0 PUBS MCHC (33.0 - 37.0 G/DL) 33.1 Toxicology Urine Opiates Screen (>2000 NG/ML) 202.00 Methadone Screen (>300 NG/ML) < 40 Barbiturate Screen (>200 NG/ML) < 60 Ur Phencyclidine Scrn (>25 NG/ML) < 6.00 Amphetamines Screen (>1000 NG/ML) < 100 U Benzodiazepines Scrn (>200 NG/ML) 95 Urine Cocaine Screen (>300 NG/ML) < 50 Urine Cannabis Screen (>50 NG/ML) > 80.00 H Urines Urinalysis MOD H Urine Color (YEL,AMB,STR) YEL Urine Clarity (CLEAR) CLEAR Urine pH (5.0 - 8.0) 6.0 Ur Specific [place] (1.001 - 1.035) 1.020 Urine Protein (NEG,<30 MG/DL) TRACE H Urine Ketones (NEG) NEG Urine Nitrite (NEG) NEG Urine Bilirubin (NEG) NEG Urine Urobilinogen (0.1 - 1.0 EU/dl) 0.2 Ur Leukocyte Esterase (NEG) NEG Ur Microscopic SEDIMENT EXAMINED Urine RBC (0 - 5 /HPF) 1-3 Urine WBC (0 - 2 /HPF) 1-3 H Urine Bacteria (NEG/NONE) FEW H Granular Casts (NONE /LPF) 1-3 H Urine Hemoglobin (NEG) NEG Urine Glucose (N MG/DL) 250 H Diffential Diagnosis: Adjustment disorder r/o Unspecified depressive disorder r/o Dysthymia Impression: Client is a 76 year old female who presented to the hospital for lethargy, nausea, and vomiting. She expressed some mild symptoms of depression, which was precipitated by her diagnosis of lung CA. Likely adjustment disorder to recent stressor of CA diagnosis and lobectomy. Provisional Treatment Plan: 1. Recommended therapy, client refused. Should client change her mind please have her call [facility] at [phone]. 2. Reviewed Head CT, ?meningioma, consider further imaging given recent fall and nausea 3. Reviewed medication list, client reports she takes clonazepam for trigeminal neuralgia as well as opiates for pain, be mindful of interaction between opiates and benzodiazepines which can contribute to increased risk of falls, respiratory depression, and mental depression Thank you for including psychiatry in this case. Please re-consult as needed.
--- NOTE | 2016-12-11 14:51 | Discharge Summary ---
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 VS on admission: BP 153/77, HR 89, RR 18, SPO2 90% on 2 LNC, T 96.3 Pertinent labs on admission: WBC 17.0, H&H 13.2/40.0, sodium 127, potassium 4.0, chloride 92, carbonate 24, BUN/CR 11/0.7, glucose 220 UA: 1-3 WBCs, few bacteria, 1-[address]s of abdomen, pelvis and head as indicated above She was admitted to general medicine and treated for the following problems: Problem list: 1. Lethargy/altered mental status 2. Leukocytosis 3. Hyponatremia 4. History of lung adenocarcinoma S/B RUL lobectomy 5. Pain management 6. History of trigeminal neuralgia #Lethargy, vomitting likely secondary to medication overdose: On presentation, she had altered mental status that was thought to be likely secondary to narcotic use. She also had leukocytosis and hyponatremia that subsequently resolved continuously. Overnight she improved significantly. She became alert and oriented 3 and was no longer nauseous or vomiting. Talking to her that morning, she seemed very depressed about her state of health. She was previously very healthy and active, and her health has declined precipitously over the course of the past year or so. Psychiatry was consulted and they recommended that she calls [facility] psychiatry outpatient at [phone] should she want further counseling or therapy. Allergies: Coded Allergies: No Known Allergies (11/05/16) Disposition Summary Disposition Principal Diagnosis: Medication overdose Additional Diagnosis: Hyponatremia Discharge Disposition: home or self care Discharge Instructions General Discharge Information Code Status: Do Not Resucitate/Intubat Patient's Diet: Regular diet Patient's Activity: As tolerated Follow-Up Instructions/Appts: Please take all medications as directed. Please follow-up with your PCP in one week. Medications at Discharge Discharge Medications: Stop taking the following medications: Meloxicam (Meloxicam) 15 MG TABLET ORAL Every Day Continue taking these medications: Pantoprazole Sodium (Protonix) 40 MG TABLET.DR 1 Tablet ORAL DAILY Comments: Last Taken: 11/10/16 Time: 6 AM Oxycodone HCl (Oxycodone HCl) 15 MG TABLET 1 Tablet ORAL THREE TIMES DAILY Comments: NOT GIVEN IN HOSPITAL Clonazepam (Clonazepam) 0.5 MG TABLET 1 Tablet ORAL THREE TIMES DAILY Comments: Last Taken: 11/10/16 Time: 9 AM Gabapentin (Gabapentin) 300 MG CAPSULE 1 Tablet ORAL THREE TIMES DAILY Comments: Last Taken: 11/10/16 Time: 9 AM Bisacodyl (Dulcolax) 5 MG TABLET.DR 1 Tablet ORAL Comments: NOT GIVEN IN HOSPITAL Sennosides (Senna) 8.6 MG TABLET 1 Tablet ORAL DAILY as needed for CONSTIPATION Comments: Last Taken: 11/09/16 Time: 9 PM Ondansetron HCl (Zofran) 4 MG TABLET 1 Tablet ORAL EVERY 8 HOURS NEEDED as needed for NAUSEA Comments: Last Taken: 11/06/16 Time: 6 AM Oxcarbazepine (Trileptal) 600 MG TABLET 1 Tablet ORAL AT BEDTIME Days = 30 Comments: Last Taken: 11/09/16 Time: 9 PM Oxcarbazepine (Trileptal) 300 MG TABLET 1 Tablet ORAL TWICE DAILY Days = 30 Instructions: at 6am and 1pm daily Comments: Last Taken: 11/10/16 Time: 6 AM Docusate Sodium (Docusate Sodium) 100 MG CAPSULE 100 Milligram ORAL DAILY as needed for CONSTIPATION Qty = 30 Instructions: .stool softener available over the counter Comments: Last Taken: 11/10/16 Time: 9 AM Oxycodone HCl/Acetaminophen (Percocet 5-325 MG Tablet) 5 MG-325 MG TABLET 1-2 Tablet ORAL EVERY 4-6 HOURS NEEDED as needed for pain control Qty = 36 Instructions: . Comments: Last Taken: 11/08/16 Time: 7 PM Dronabinol (Marinol) 2.5 MG CAPSULE 1 Capsule ORAL DAILY Qty = 30 Copies To: CAMMY CRUZ,RAYRAY
[2016-12-11 15:23] VITALS: BP 126/74
--- NOTE | 2016-12-11 16:10 | Patient Discharge Instructions ---
Discharge Instructions General Discharge Information You were seen/treated for: Lethargy Watch for these problems: Please seek medical care if you've feel increasingly lethargic, vomiting, change in mental status. Special Instructions: Please call [facility] at [phone] in the future if the need for further counseling arises. Please follow-up with your PCP in 1 week. Please follow-up with her pain specialist as well. Please take all medications as directed. Acute Coronary Syndrome Inclusion Criteria At DC or during hospital stay patient has or had the following: ACS DIAGNOSIS No Discharge Core Measures Meds if any: Prescribed or Continued at Discharge Meds if any: NOT Prescribed or Continued at Discharge Congestive Heart Failure Inclusion Criteria At DC or during hospital stay patient has or had the following: CHF DIAGNOSIS No Discharge Core Measures Meds if any: Prescribed or Continued at Discharge Meds if any: NOT Prescribed or Continued at Discharge Cerebrovascular accident Inclusion Criteria At DC or during hospital stay patient has or had the following: CVA/TIA Diagnosis No Discharge Core Measures Meds if any: Prescribed or Continued at Discharge Meds if any: NOT Prescribed or Continued at Discharge Venous thromboembolism Inclusion Criteria VTE Diagnosis No VTE Type NONE VTE Confirmed by (Test) NONE Discharge Core Measures - Per Current guidelines, there needs to be overlap - treatment for the first 5 days of Warfarin therapy. - If discharged on Warfarin prior to 5 days of - overlap therapy, the patient will need to be - assessed for post discharge needs including - *Post discharge parental anticoagulation - *Warfarin and/or parental anticoagulation education - *Follow up date to check INR post discharge At least 5 days overlap therapy as Inpatient No Meds if any: Prescribed or Continued at Discharge Note: Overlap Therapy is Warfarin and Anticoagulant Meds if any: NOT Prescribed or Continued at Discharge
== END 2016-12-11 17:45 ==
LOC: ERH 12:10 → ERHI 17:15 → 2NB 17:15 → ENRESERV 18:53 → ENTRNSPT 20:40 → EDTRNSPTSTS 20:44 → 2NB 20:50 → CMPTRNSPT 21:13 → 2NB 12-11 08:34 → ENPENDDIS 12-11 16:20 → 2NB 12-11 17:45
PROVIDERS: Emergency Medicine; Internal Medicine; ADMIT Internal Medicine
DX: T40.601A Poisoning by unspecified narcotics, accidental (unintentional), initial encounter (principal); D72.829 Elevated white blood cell count, unspecified; R49.22 Hyponasality; Z85.118 Personal history of other malignant neoplasm of bronchus and lung; G50.0 Trigeminal neuralgia; R11.11 Vomiting without nausea; R53.83 Other fatigue; R62.7 Adult failure to thrive
CPT/HCPCS: 1328; 1425; 1530; 1748; 6040; 84133; 84300; 36415; 74022; 74177; 80307; 81001; 82436; 82570; 84481; 93005; 93010; 96372; 96374; 99233; G0378; J1650; J2405